=== PATIENT | male | born 1950 | race Caucasian/White ===

== ENCOUNTER 2019-10-09 23:37 | Inpatient (IN) | payer MEDICARE, SELFPAY ==
[2019-10-09 23:44] VITALS: BP 95/61; PULSE 74; RESP 20; TEMP 36.1; O2SAT 94; BMI 36.2
--- NOTE | 2019-10-09 23:55 | XRR_ITS ---
PROCEDURE INFORMATION: Exam: XR Chest, 1 View Exam date and time: 10/10/2019 12:09 AM Age: 69 years old Clinical indication: Dyspnea and shortness of breath and other: Bilateral lower extremity edema TECHNIQUE: Imaging protocol: XR of the chest Views: 1 view. COMPARISON: [facility] Chest 2 views 03/04/2019 8:43 AM FINDINGS: Lungs: Interstitial prominence . Pleural space: No pleural effusion. Heart/Mediastinum: Poorly defined density overlying the inferior left heart border, believed to represent epicardial fat. Bones/joints: Nonspecific 5 mm nodular density overlying the right 9th posterior rib. Degenerative change. XR/XR chest 1V portable [id number] IMPRESSION: 1. Nonspecific 5 mm nodular density overlying the right 9th posterior rib. 2. Poorly defined density overlying the inferior left heart border, believed to represent epicardial fat.
[2019-10-10] VITALS (12 sets, daily range): BP systolic 102–152; BP diastolic 63–99; PULSE 96–124; RESP 16–20; TEMP 36.4–37.3; O2SAT 92–98
--- NOTE | 2019-10-10 00:24 | W.ED.EXTPRO ---
HPI - Extremity Problem General: Chief complaint: Extremity Problem,Nontraumatic Stated complaint: feet swollen Time Seen by Provider: 10/09/19 23:50 History of Present Illness: HPI Narrative: Jasper is a nice 69-year-old male who comes in complaining of bilateral feet swelling. He states that for the past 2 days he is noticed his feet have been more swollen along with a sensation of a burning. Patient states he has chronic numbness which he thinks is secondary to diabetic neuropathy but then he also developed a rash on his feet that is now spread throughout his body. He does have shortness of breath but no more so than usual and that is secondary to his COPD. He denies fever. He denies chest pain. He denies any lightheadedness or dizziness. Patient states he is most concerned about his leg swelling and discomfort in his legs. He is really not tried anything at home to make this better or worse. He denies having anything like this before. Associated symptoms: Reports rash; Deny chest pain or fever(s) Review of Systems Const: Denies: fever(s), chills, body aches, fatigue, malaise or diaphoresis Eyes: Denies: change in vision, blurry vision, blind spots or photophobia ENMT: Denies: throat pain, odynophagia, hoarseness, swelling of lips/tongue, ear or mastoid pain, ear discharge, change in hearing or nasal discharge Card: Denies: chest pain, palpitations, irregular heart rhythm, edema, lightheadedness, syncope, pre-syncope, dyspnea on exertion or orthopnea Resp: Reports: dyspnea; Denies: productive cough, non-productive cough, wheezing, hemoptysis or chest congestion GI: Denies: abdominal pain, nausea, vomiting, hematemesis, coffee ground emesis, heartburn, diarrhea, constipation, GI cramping, hematochezia or melena : Denies: flank pain, dysuria, urinary frequency, urinary urgency or hematuria Musc: Reports: extremity swelling; Denies: neck pain, back pain, extremity pain, joint pain, joint swelling, joint redness, joint warmth or joint stiffness Skin/Breast: Reports: rash; Denies: pruritus, erythema, skin tenderness or jaundice Neuro: Denies: headache(s), numbness in extremities, weakness in extremities, sensory changes, lack of coordination, difficulty walking, dizziness, vertigo, confusion or Slurred speech present Arnol/Lymph: Denies: easy bruising, easy bleeding, petechiae, purpura or enlarged lymph nodes All/Imm: Denies: urticaria, throat swelling, tongue swelling, facial swelling or acute wheezing PFSH ED PFSH: Medical History Anxiety CAD (coronary atherosclerotic disease) COPD (chronic obstructive pulmonary disease) Depression DM type 2 (diabetes mellitus, type 2) GERD (gastroesophageal reflux disease) Hypertension Ischemic cardiomyopathy EF 45% Obstructive sleep apnea Unable to tolerate CPAP Surgical History H/O cardiac catheterization Stent 1998 H/O foot surgery History of carpal tunnel surgery Hx of tonsillectomy Family History Other CAD (coronary artery disease) Social History Smoking and tobacco status: heavy tobacco smoker cigarettes [ Other cigarette details: 1 pack/day since young ] Alcohol intake: never Substance/Drug Use: never Household members: spouse and family Housing: House Physical Exam Const: COMMON NORMALS: no acute distress, patient oriented x3, no limitations, healthy appearing and well nourished GENERAL APPEARANCE: cooperative, well kempt and well developed HENMT: COMMON NORMALS: normocephalic, atraumatic, hearing grossly normal bilaterally, external ears normal, EAC's normal, Normal external nose present and moist oral mucous membranes HEAD & SCALP: normocephalic and atraumatic NOSE: Normal external nose present and Normal nares present EXTERNAL EAR: Yes external ears normal EXTERNAL AUDITORY CANAL: EAC's normal MOUTH: Normal oral and palatal mucosa present, lip normal and tongue normal Eye: COMMON NORMALS: Equal, round and reactive pupils present, EOMs intact bilaterally, conjunctivae normal and no scleral icterus GENERAL EYE: appearance normal, both eyes and all related structures ALIGNMENT: Yes alignment normal PERIORBITAL: periorbital findings normal EYELID: eyelids normal CONJUNCTIVA: Yes conjunctivae normal SCLERA: sclerae normal PUPIL: Yes Equal, round and reactive pupils present Neck/C-Spine: COMMON NORMALS: full ROM, no lymphadenopathy, supple, no meningeal signs and no JVD GENERAL: Yes normal visual inspection and Yes trachea midline Chest: COMMONS NORMALS: normal inspection of the chest and normal palpation of entire chest wall Resp: COMMON NORMALS: normal respiratory effort, No retractions, No use of accessory muscles and clear to auscultation bilaterally EFFORT & INSPECTION: Yes able to speak in complete sentences and Yes symmetric chest movement AUSCULTATION: clear to auscultation bilaterally, no crackles, no rales, no rhonchi and no wheezes Cardio: COMMON NORMALS: no JVD, regular rate, regular rhythm, S1 normal heart sound present, S2 normal heart sound present, No gallops present (Cardio), No clicks present (Cardio), No murmurs present (Cardio) and No rub (Cardio) RATE: regular rate RHYTHM: regular rhythm HEART SOUNDS: S1 normal heart sound present and S2 normal heart sound present OTHER: Bilateral lower extremity edema filling the foot, ankles and lower legs. GI: COMMON NORMALS: Soft to palpation and No hepatosplenomegaly present PALPATION: Yes Soft to palpation, No Tenderness to palpation present (GI), No Guarding due to palpation present (GI), No Rigid due to palpation, Yes No hepatosplenomegaly present, No Hernia present, No Palpable mass present and No Pulsatile mass present : COMMON NORMALS: Yes no CVA tenderness BLADDER/KIDNEY EXAM: Yes no CVA tenderness Back/Pelvis: COMMON NORMALS: no CVA tenderness, thoracic and lumbar spine normal to inspection, no thoracic nor lumbar tenderness and thoraco-lumbar ROM normal Extremity: COMMON NORMALS: normal to inspection, full ROM, capillary refill normal, no joint enlargement, no clubbing, cyanosis or edema and no calf tenderness Neuro: COMMON NORMALS: patient oriented x3, CN's II-XII intact bilaterally, moves all extremities, no focal motor deficits and no sensory deficits noted MENINGEAL SIGNS: Yes no meningeal signs SPEECH: speech normal Psych: COMMON NORMALS: mental status grossly normal, Normal thought process present, cooperative, normal affect, speech normal and activity/motor behavior normal APPEARANCE: Yes well kempt SPEECH: Yes normal speech THOUGHT PROCESS: Normal thought process present Skin: COMMON NORMALS: turgor normal, no jaundice and no mottling NARRATIVE SKIN EXAM: Petechial-like rash to lower extremities, upper extremities and torso GENERAL SKIN EXAM: turgor normal Course Vital Signs: Vital signs: Vital Signs Temperature 97.9 F 10/10/19 03:18 Pulse Rate 116 H 10/10/19 03:18 Respiratory Rate 20 H 10/10/19 03:18 Blood Pressure 133/76 10/10/19 03:18 Pulse Oximetry 98 10/10/19 03:18 MDM - Extremity (Nontraumatic) MDM Narrative: Medical decision making narrative: Admission -Mr. ventura is a nice 69-year-old man who comes in complaining of feet swelling, burning pain and petechial rash. His rash is spread even during his time here in the ER to occlude his upper extremities and his trunk. He does not have a fever. He is not complaining of a viral syndrome at this time. He is in new onset atrial fibrillation. This first blood pressure was slightly soft but his repeat pressures have all been normal. His heart rate is in the 100s. I have elected not to control his heart rate secondary to the concern of an infectious process. Patient did have a tick bite approximately 2 weeks ago that he remembers. The petechial rash could be explained by [place] spotted fever but meningococcemia is also a possibility. At this time the patient's been covered with broad-spectrum antibiotics as well as antibiotics specific for tickborne illness and meningococcemia. I have endorsed the case to Dr. White and he agrees to admit for further evaluation and care. Lab Data: Attestation: I reviewed the patient's lab results. Labs: Lab Results 10/10/19 10/10/19 10/10/19 Range/Units 00:07 00:07 00:07 WBC (4.0-10.0) 10^3/ uL RBC (4.1-5.3) 10^6/u L Hgb (11.7-16.6) g/dL Hct (42.0-52.0) % MCV (80-94) fL MCH (28.0-34.0) pg MCHC (30.0-36.0) g/dL RDW (12.1-15.1) % Plt Count (130-400) 10^3/c mm MPV (7.4-10.4) fL Neut % (Auto) % Lymph % (Auto) % [place] % (Auto) % Eos % (Auto) % Baso % (Auto) % Neut # (Auto) (1.8-7.7) 10^3/u L Lymph # (Auto) (0.8-4.8) 10^3/u L [place] # (Auto) (0.2-0.9) 10^3/u L Eos # (Auto) (0.0-0.8) 10^3/u L Baso # (Auto) (0.0-0.1) 10^3/u L Nucleated RBC % (a uto) % Nucleated RBCs # /100WBC ESR (0-10) mm/hr PT (10.5-13.3) SECO NDS INR (0.8-1.2) APTT (23.9-36.7) SECO NDS Fibrinogen (184-529) mg/dL D-Dimer 3.11 H (0-0.59) ug/mIFE U Sodium 130 L (136-145) mmol/L Potassium 3.2 L (3.5-5.1) mmol/L Chloride 85 L (98-107) mmol/L Carbon Dioxide 30 H (22-29) mmol/L Anion Gap 18.2 (5-19) BUN 14 (8-23) mg/dL Creatinine 0.8 (0.7-1.2) mg/dL GFR Calculation 96.4 (90-130) mL/min Glucose 126 H (65-115) mg/dL Calculated Osmolal ity 268 L (285-295) mOsm/k g Lactic Acid 2.6 H (0.5-2.2) mmol/L Lactic Acid (Sepsi s) (0.5-2.2) mmol/L Calcium 8.7 (8.5-10.5) mg/dL Magnesium 1.3 L (1.7-2.3) mg/dL Total Bilirubin 1.8 H (0.15-1.2) mg/dL AST 12 (0-40) U/L ALT 14 (0-41) U/L Alkaline Phosphata se 85 (40-130) IU/L Troponin T Baselin e (0-15) ng/mL Troponin T 120 Min [place] (0-15) ng/mL Delta Troponin T (0-10) ABS# C-Reactive Protein (0.0-4.9) mg/L NT-Pro-B Natriuret Pep 424 H (0-125) pg/mL Total Protein 7.2 (6.6-8.7) g/dL Albumin 4.0 (3.5-5.2) g/dL Globulin 3.2 (1.3-4.6) g/dL Urine Color (Yellow) Urine Appearance (CLEAR) Urine pH (5-7) Ur Specific Gravit y (1.005-1.030) Urine Protein (Negative) Urine Glucose (UA) (Normal) Urine Ketones (Negative) Urine Blood (Negative) Urine Nitrate (Negative) Urine Bilirubin (NEGATIVE) Urine Urobilinogen (Negative) mg/dL Ur Leukocyte Teresa ase (Negative) Urine RBC (0-2) /hpf Urine WBC (0-5) /hpf Ur Squamous Epith Cells (0-5) Urine Bacteria (NONE) Hyaline Casts Urine Mucus 10/10/19 10/10/19 10/10/19 Range/Units 00:07 00:07 00:07 WBC 11.7 H (4.0-10.0) 10^3/ uL RBC 5.20 (4.1-5.3) 10^6/u L Hgb 16.3 (11.7-16.6) g/dL Hct 48.1 (42.0-52.0) % MCV 92.5 (80-94) fL MCH 31.3 (28.0-34.0) pg MCHC 33.9 (30.0-36.0) g/dL RDW 13.2 (12.1-15.1) % Plt Count 217 (130-400) 10^3/c mm MPV 9.6 (7.4-10.4) fL Neut % (Auto) 56.8 % Lymph % (Auto) 33.4 % Durham % (Auto) 7.8 % Eos % (Auto) 1.0 % Baso % (Auto) 0.5 % Neut # (Auto) 6.7 (1.8-7.7) 10^3/u L Lymph # (Auto) 3.9 (0.8-4.8) 10^3/u L [place] # (Auto) 0.9 (0.2-0.9) 10^3/u L Eos # (Auto) 0.1 (0.0-0.8) 10^3/u L Baso # (Auto) 0.1 (0.0-0.1) 10^3/u L Nucleated RBC % (a uto) 0 % Nucleated RBCs # 0.0 /100WBC ESR 18 H (0-10) mm/hr PT (10.5-13.3) SECO NDS INR (0.8-1.2) APTT (23.9-36.7) SECO NDS Fibrinogen (184-529) mg/dL D-Dimer (0-0.59) ug/mIFE U Sodium (136-145) mmol/L Potassium (3.5-5.1) mmol/L Chloride (98-107) mmol/L Carbon Dioxide (22-29) mmol/L Anion Gap (5-19) BUN (8-23) mg/dL Creatinine (0.7-1.2) mg/dL GFR Calculation (90-130) mL/min Glucose (65-115) mg/dL Calculated Osmolal ity (285-295) mOsm/k g Lactic Acid (0.5-2.2) mmol/L Lactic Acid (Sepsi s) (0.5-2.2) mmol/L Calcium (8.5-10.5) mg/dL Magnesium (1.7-2.3) mg/dL Total Bilirubin (0.15-1.2) mg/dL AST (0-40) U/L ALT (0-41) U/L Alkaline Phosphata se (40-130) IU/L Troponin T Baselin e 26 H (0-15) ng/mL Troponin T 120 Min [place] (0-15) ng/mL Delta Troponin T (0-10) ABS# C-Reactive Protein (0.0-4.9) mg/L NT-Pro-B Natriuret Pep (0-125) pg/mL Total Protein (6.6-8.7) g/dL Albumin (3.5-5.2) g/dL Globulin (1.3-4.6) g/dL Urine Color (Yellow) Urine Appearance (CLEAR) Urine pH (5-7) Ur Specific Gravit y (1.005-1.030) Urine Protein (Negative) Urine Glucose (UA) (Normal) Urine Ketones (Negative) Urine Blood (Negative) Urine Nitrate (Negative) Urine Bilirubin (NEGATIVE) Urine Urobilinogen (Negative) mg/dL Ur Leukocyte Teresa ase (Negative) Urine RBC (0-2) /hpf Urine WBC (0-5) /hpf Ur Squamous Epith Cells (0-5) Urine Bacteria (NONE) Hyaline Casts Urine Mucus 10/10/19 10/10/19 10/10/19 Range/Units 00:07 01:05 01:42 WBC (4.0-10.0) 10^3/ uL RBC (4.1-5.3) 10^6/u L Hgb (11.7-16.6) g/dL Hct (42.0-52.0) % MCV (80-94) fL MCH (28.0-34.0) pg MCHC (30.0-36.0) g/dL RDW (12.1-15.1) % Plt Count (130-400) 10^3/c mm MPV (7.4-10.4) fL Neut % (Auto) % Lymph % (Auto) % [place] % (Auto) % Eos % (Auto) % Baso % (Auto) % Neut # (Auto) (1.8-7.7) 10^3/u L Lymph # (Auto) (0.8-4.8) 10^3/u L [place] # (Auto) (0.2-0.9) 10^3/u L Eos # (Auto) (0.0-0.8) 10^3/u L Baso # (Auto) (0.0-0.1) 10^3/u L Nucleated RBC % (a uto) % Nucleated RBCs # /100WBC ESR (0-10) mm/hr PT (10.5-13.3) SECO NDS INR (0.8-1.2) APTT (23.9-36.7) SECO NDS Fibrinogen (184-529) mg/dL D-Dimer (0-0.59) ug/mIFE U Sodium (136-145) mmol/L Potassium (3.5-5.1) mmol/L Chloride (98-107) mmol/L Carbon Dioxide (22-29) mmol/L Anion Gap (5-19) BUN (8-23) mg/dL Creatinine (0.7-1.2) mg/dL GFR Calculation (90-130) mL/min Glucose (65-115) mg/dL Calculated Osmolal ity (285-295) mOsm/k g Lactic Acid (0.5-2.2) mmol/L Lactic Acid (Sepsi s) (0.5-2.2) mmol/L Calcium (8.5-10.5) mg/dL Magnesium (1.7-2.3) mg/dL Total Bilirubin (0.15-1.2) mg/dL AST (0-40) U/L ALT (0-41) U/L Alkaline Phosphata se (40-130) IU/L Troponin T Baselin e (0-15) ng/mL Troponin T 120 Min [place] 22.34 H (0-15) ng/mL Delta Troponin T -3.66 L (0-10) ABS# C-Reactive Protein 39.7 H (0.0-4.9) mg/L NT-Pro-B Natriuret Pep (0-125) pg/mL Total Protein (6.6-8.7) g/dL Albumin (3.5-5.2) g/dL Globulin (1.3-4.6) g/dL Urine Color Dark yellow (Yellow) Urine Appearance Sl hazy (CLEAR) Urine pH 5 (5-7) Ur Specific Gravit y 1.010 (1.005-1.030) Urine Protein Neg (Negative) Urine Glucose (UA) Norm (Normal) Urine Ketones 1+ H (Negative) Urine Blood 2+ H (Negative) Urine Nitrate Negative (Negative) Urine Bilirubin Neg (NEGATIVE) Urine Urobilinogen 4 H (Negative) mg/dL Ur Leukocyte Teresa ase Negative (Negative) Urine RBC 5-10 H (0-2) /hpf Urine WBC 0-4 H (0-5) /hpf Ur Squamous Epith Cells 0-4 H (0-5) Urine Bacteria Trace (NONE) Hyaline Casts 5-10 H Urine Mucus 2+ 10/09/20 10/09/ Range/Units 02:54 03:47 WBC (4.0-10.0) 10^3/ uL RBC (4.1-5.3) 10^6/u L Hgb (11.7-16.6) g/dL Hct (42.0-52.0) % MCV (80-94) fL MCH (28.0-34.0) pg MCHC (30.0-36.0) g/dL RDW (12.1-15.1) % Plt Count (130-400) 10^3/c mm MPV (7.4-10.4) fL Neut % (Auto) % Lymph % (Auto) % [place] % (Auto) % Eos % (Auto) % Baso % (Auto) % Neut # (Auto) (1.8-7.7) 10^3/u L Lymph # (Auto) (0.8-4.8) 10^3/u L [place] # (Auto) (0.2-0.9) 10^3/u L Eos # (Auto) (0.0-0.8) 10^3/u L Baso # (Auto) (0.0-0.1) 10^3/u L Nucleated RBC % (a uto) % Nucleated RBCs # /100WBC ESR (0-10) mm/hr PT 13.90 H (10.5-13.3) SECO NDS INR 1.04 (0.8-1.2) APTT 27.6 (23.9-36.7) SECO NDS Fibrinogen 450 (184-529) mg/dL D-Dimer 3.73 H (0-0.59) ug/mIFE U Sodium (136-145) mmol/L Potassium (3.5-5.1) mmol/L Chloride (98-107) mmol/L Carbon Dioxide (22-29) mmol/L Anion Gap (5-19) BUN (8-23) mg/dL Creatinine (0.7-1.2) mg/dL GFR Calculation (90-130) mL/min Glucose (65-115) mg/dL Calculated Osmolal ity (285-295) mOsm/k g Lactic Acid (0.5-2.2) mmol/L Lactic Acid (Sepsi s) 1.9 (0.5-2.2) mmol/L Calcium (8.5-10.5) mg/dL Magnesium (1.7-2.3) mg/dL Total Bilirubin (0.15-1.2) mg/dL AST (0-40) U/L ALT (0-41) U/L Alkaline Phosphata se (40-130) IU/L Troponin T Baselin e (0-15) ng/mL Troponin T 120 Min [place] (0-15) ng/mL Delta Troponin T (0-10) ABS# C-Reactive Protein (0.0-4.9) mg/L NT-Pro-B Natriuret Pep (0-125) pg/mL Total Protein (6.6-8.7) g/dL Albumin (3.5-5.2) g/dL Globulin (1.3-4.6) g/dL Urine Color (Yellow) Urine Appearance (CLEAR) Urine pH (5-7) Ur Specific Gravit y (1.005-1.030) Urine Protein (Negative) Urine Glucose (UA) (Normal) Urine Ketones (Negative) Urine Blood (Negative) Urine Nitrate (Negative) Urine Bilirubin (NEGATIVE) Urine Urobilinogen (Negative) mg/dL Ur Leukocyte Teresa ase (Negative) Urine RBC (0-2) /hpf Urine WBC (0-5) /hpf Ur Squamous Epith Cells (0-5) Urine Bacteria (NONE) Hyaline Casts Urine Mucus Imaging Data^: CXR: My impression: No acute cardiopulmonary findings. CTA Pulmonary Artery, Abdomen Pelvis: Radiologist's impression: [place] [address] CT Scan Report Signed Patient: Jasper Savage Unit #: [id number] : 1950 Age/Sex: 69 / M ADM Date: 10/09/19 Loc: ER Room/Bed: Attending Dr: Ordering Provider/Ordering MD: Mehnaz Oneal DO Date of Service: 10/10/19 Procedure(s): CT angio chest w abd pel w con Accession Number(s): [id number] Report Number: [id number] PROCEDURE INFORMATION: Exam: CT Angiography Chest With Contrast Exam date and time: 10/10/2019 1:47 AM Age: 69 years old Clinical indication: Nausea; Abdominal pain; Generalized; Shortness of breath; Chest pain; Additional info: Dyspnea TECHNIQUE: Imaging protocol: Computed tomographic angiography of the chest with intravenous contrast. 3D rendering: MIP and/or 3D reconstructed images were created by the technologist. Radiation optimization: All CT scans at this facility use at least one of these dose optimization techniques: automated exposure control; mA and/or kV adjustment per patient size (includes targeted exams where dose is matched to clinical indication); or iterative reconstruction. Contrast material: OMNI 350; Contrast volume: 95 ml; Contrast route: 20G; COMPARISON: CR XR chest 1V portable [id number] 10/09/2019 11:57 PM FINDINGS: Pulmonary arteries: Normal. No pulmonary emboli. Aorta: Unremarkable. No aortic aneurysm. No aortic dissection. Lungs: Unremarkable. No consolidation. A partially calcified nodularity is seen within the left lower lobe measuring approximately 7 mm likely representing a partially calcified granuloma. Pleural space: Unremarkable. No pneumothorax. No pleural effusion. Heart: Unremarkable. No cardiomegaly. No pericardial effusion. Lymph nodes: Unremarkable. No enlarged lymph nodes. Bones/joints: Unremarkable. No acute fracture. Soft tissues: Unremarkable. Other findings: The Total DLP: 2217.17 mGy-cm IMPRESSION: 1. There is no evidence for pulmonary emboli. There is no evidence for aneurysmal dilatation, dissection or extravasation. 2. 7 mm partially calcified granuloma within the left hemithorax. No further workup needed. PROCEDURE INFORMATION: Exam: CT Abdomen And Pelvis With Contrast Exam date and time: 10/10/2019 1:47 AM Age: 69 years old Clinical indication: Nausea; Abdominal pain; Generalized; Shortness of breath; Chest pain; Additional info: Dyspnea TECHNIQUE: Imaging protocol: Computed tomography of the abdomen and pelvis with intravenous contrast. Radiation optimization: All CT scans at this facility use at least one of these dose optimization techniques: automated exposure control; mA and/or kV adjustment per patient size (includes targeted exams where dose is matched to clinical indication); or iterative reconstruction. Contrast material: OMNI 350; Contrast volume: 95 ml; Contrast route: 20G; COMPARISON: CR XR chest 1V portable [id number] 10/09/2019 11:57 PM RADIATION DOSE METRICS: Total DLP: 2217.17 mGy-cm FINDINGS: Liver: Normal. No mass. Gallbladder and bile ducts: Normal. No calcified stones. No ductal dilation. Pancreas: Normal. No ductal dilation. Spleen: Multiple punctate calcifications are seen within the spleen compatible with calcified granulomas. No splenomegaly. Adrenals: There is a 13 mm hypoattenuation nodularity seen within the left adrenal gland likely representing a benign adenoma. Kidneys and ureters: Normal. No hydronephrosis. Stomach and bowel: There is mild bowel wall thickening seen within the terminal ileum, findings could represent mild inflammatory changes and ileitis. Appendix: No evidence of appendicitis. Intraperitoneal space: Unremarkable. No free air. No significant fluid collection. Vasculature: Unremarkable. No abdominal aortic aneurysm. Lymph nodes: Unremarkable. No enlarged lymph nodes. Bladder: Unremarkable as visualized. Reproductive: Unremarkable as visualized. Bones/joints: Unremarkable. No acute fracture. Soft tissues: Unremarkable. CT/CT angio chest w abd pel w con IMPRESSION: 1. No acute findings. 2. Benign-appearing 13 mm hypoattenuation left adrenal nodularity. If patient has no cancer history, consider follow-up adrenal CT or resection. If patient has a history of cancer, consider biopsy or PET/CT for patients with cancer history. ([facility] CampusJosh W, ACR White Paper, 2017) . 3. Mild bowel wall thickening of the terminal ileum, findings could represent mild terminal ileitis. Radiation Dose CTDIVOL = (mGy): DLP = 2217.17 2217.17 (mGy-cm) Dictated By: Wood June MD Signed By: Wood June MD Signed Date/Time: 10/10/19300 DD/ 8 EKG Data^: EKG 1: Attestation: I personally reviewed and interpreted this EKG as follows: Discharge Plan Discharge Patient Disposition: Placed in Observation Clinical Impression: Atrial fibrillation with rapid ventricular response, Petechial rash Condition: Stable Referrals: Sushil Valerio DO [Primary Care Provider] - Coding Level of Care Code ED Substation Manager for Chg Fwd Exam Comprehensive
[2019-10-10 00:25] LABS: Basophils # 0.1 10^3/uL (0.0-0.1); Basophils % 0.5 %; Eosinophils # 0.1 10^3/uL (0.0-0.8); Hematocrit 48.1 % (42.0-52.0); Hemoglobin 16.3 g/dL (11.7-16.6); Lymphocytes # 3.9 10^3/uL (0.8-4.8); Lymphocytes % 33.4 %; Mean Corpuscular HGB Conc 33.9 g/dL (30.0-36.0); Mean Corpuscular Hemoglobin 31.3 pg (28.0-34.0); Mean Corpuscular Volume 92.5 fL (80-94); Mean Platelet Volume 9.6 fL (7.4-10.4); Monocytes # 0.9 10^3/uL (0.2-0.9); Monocytes % 7.8 %; Neutrophils # 6.7 10^3/uL (1.8-7.7); Neutrophils % 56.8 %; Nucleated Red Blood Cells % 0 %; Platelet Count 217 10^3/cmm (130-400); Red Cell Distribution Width 13.2 % (12.1-15.1); White Blood Count 11.7 10^3/uL (4.0-10.0)
[2019-10-10 00:32] LABS: D Dimer 3.11 ug/mIFEU (0-0.59)
--- NOTE | 2019-10-10 00:37 | USR_ITS ---
PROCEDURE INFORMATION: Exam: US Duplex Lower Extremity Veins, Bilateral Exam date and time: 10/10/2019 5:52 AM Age: 69 years old Clinical indication: Pain; Swelling (edema) of limb; Lower extremity, bilateral; Leg, lower; Additional info: Swelling, pain TECHNIQUE: Imaging protocol: Real-time duplex ultrasound of the extremities with 2-D elmore scale, color Doppler flow and spectral waveform analysis with image documentation. Complete exam focused on the bilateral lower extremity veins. COMPARISON: No relevant prior studies available. FINDINGS: Right deep veins: No deep venous thrombosis in the visualized right common femoral, profunda femoris, superficial femoral, popliteal, posterior tibial, or peroneal veins. Right superficial veins: Saphenofemoral junction is patent without thrombus. Left deep veins: No deep venous thrombosis in the visualized left common femoral, profunda femoris, superficial femoral, popliteal, posterior tibial, or peroneal veins. Left superficial veins: Saphenofemoral junction is patent without thrombus. Soft tissues: Unremarkable. US/CV venous duplex [facility] [id number] IMPRESSION: No deep venous thrombosis in the visualized bilateral lower extremities.
[2019-10-10 00:42] LABS: Lactic Sepsis W/Reflex 2.6 mmol/L (0.5-2.2)
[2019-10-10 00:43] LABS: Troponin(5th) Baseline 26 ng/mL (0-15)
[2019-10-10 00:51] LABS: Alanine Aminotransferase 14 U/L (0-41); Alkaline Phosphatase 85 IU/L (40-130); Anion Gap 18.2 (5-19); Aspartate Amino Transferase 12 U/L (0-40); Blood Urea Nitrogen 14 mg/dL (8-23); Calcium 8.7 mg/dL (8.5-10.5); Carbon Dioxide 30 mmol/L (22-29); Chloride 85 mmol/L (98-107); Globulin 3.2 g/dL (1.3-4.6); Glomerular Filtration Rate 96.4 mL/min (90-130); Glucose 126 mg/dL (65-115); Magnesium 1.3 mg/dL (1.7-2.3); NT Pro B Type Natriuretic Pept 424 pg/mL (0-125); Osmolality Calculated 268 mOsm/kg (285-295); Potassium 3.2 mmol/L (3.5-5.1); Sodium 130 mmol/L (136-145); Total Bilirubin 1.8 mg/dL (0.15-1.2); Total Protein 7.2 g/dL (6.6-8.7)
--- NOTE | 2019-10-10 01:39 | CTR_ITS ---
PROCEDURE INFORMATION: Exam: CT Angiography Chest With Contrast Exam date and time: 10/10/2019 1:47 AM Age: 69 years old Clinical indication: Nausea; Abdominal pain; Generalized; Shortness of breath; Chest pain; Additional info: Dyspnea TECHNIQUE: Imaging protocol: Computed tomographic angiography of the chest with intravenous contrast. 3D rendering: MIP and/or 3D reconstructed images were created by the technologist. Radiation optimization: All CT scans at this facility use at least one of these dose optimization techniques: automated exposure control; mA and/or kV adjustment per patient size (includes targeted exams where dose is matched to clinical indication); or iterative reconstruction. Contrast material: OMNI 350; Contrast volume: 95 ml; Contrast route: 20G; COMPARISON: CR XR chest 1V portable [id number] 10/09/2019 11:57 PM FINDINGS: Pulmonary arteries: Normal. No pulmonary emboli. Aorta: Unremarkable. No aortic aneurysm. No aortic dissection. Lungs: Unremarkable. No consolidation. A partially calcified nodularity is seen within the left lower lobe measuring approximately 7 mm likely representing a partially calcified granuloma. Pleural space: Unremarkable. No pneumothorax. No pleural effusion. Heart: Unremarkable. No cardiomegaly. No pericardial effusion. Lymph nodes: Unremarkable. No enlarged lymph nodes. Bones/joints: Unremarkable. No acute fracture. Soft tissues: Unremarkable. Other findings: The Total DLP: 2217.17 mGy-cm IMPRESSION: 1. There is no evidence for pulmonary emboli. There is no evidence for aneurysmal dilatation, dissection or extravasation. 2. 7 mm partially calcified granuloma within the left hemithorax. No further workup needed. PROCEDURE INFORMATION: Exam: CT Abdomen And Pelvis With Contrast Exam date and time: 10/10/2019 1:47 AM Age: 69 years old Clinical indication: Nausea; Abdominal pain; Generalized; Shortness of breath; Chest pain; Additional info: Dyspnea TECHNIQUE: Imaging protocol: Computed tomography of the abdomen and pelvis with intravenous contrast. Radiation optimization: All CT scans at this facility use at least one of these dose optimization techniques: automated exposure control; mA and/or kV adjustment per patient size (includes targeted exams where dose is matched to clinical indication); or iterative reconstruction. Contrast material: OMNI 350; Contrast volume: 95 ml; Contrast route: 20G; COMPARISON: CR XR chest 1V portable [id number] 10/09/2019 11:57 PM RADIATION DOSE METRICS: Total DLP: 2217.17 mGy-cm FINDINGS: Liver: Normal. No mass. Gallbladder and bile ducts: Normal. No calcified stones. No ductal dilation. Pancreas: Normal. No ductal dilation. Spleen: Multiple punctate calcifications are seen within the spleen compatible with calcified granulomas. No splenomegaly. Adrenals: There is a 13 mm hypoattenuation nodularity seen within the left adrenal gland likely representing a benign adenoma. Kidneys and ureters: Normal. No hydronephrosis. Stomach and bowel: There is mild bowel wall thickening seen within the terminal ileum, findings could represent mild inflammatory changes and ileitis. Appendix: No evidence of appendicitis. Intraperitoneal space: Unremarkable. No free air. No significant fluid collection. Vasculature: Unremarkable. No abdominal aortic aneurysm. Lymph nodes: Unremarkable. No enlarged lymph nodes. Bladder: Unremarkable as visualized. Reproductive: Unremarkable as visualized. Bones/joints: Unremarkable. No acute fracture. Soft tissues: Unremarkable. CT/CT angio chest w abd pel w con IMPRESSION: 1. No acute findings. 2. Benign-appearing 13 mm hypoattenuation left adrenal nodularity. If patient has no cancer history, consider follow-up adrenal CT or resection. If patient has a history of cancer, consider biopsy or PET/CT for patients with cancer history. (Maryse Dias, ACR White Paper, 2017) . 3. Mild bowel wall thickening of the terminal ileum, findings could represent mild terminal ileitis. Radiation Dose CTDIVOL = (mGy): DLP = 2217.17~2217.17 (mGy-cm)
[2019-10-10 02:00] LABS: Bilirubin Urine Neg (NEGATIVE); Blood Urine 2+ (Negative); Glucose Urine UA Norm (Normal); Ketones Urine 1+ (Negative); Nitrate Urine Negative (Negative); Protein Urine Neg (Negative); Urine Appearance SL Hazy (CLEAR); Urine Color Dark Yellow (Yellow); Urobilinogen Urine 4 mg/dL (Negative); pH Urine 5 (5-7)
[2019-10-10 02:01] LABS: Leukocyte Esterase Urine Negative (Negative)
[2019-10-10] MEDS: magnesium sulfate premix 2 GM/50 ML PIGGYBACK IV (02:01)
[2019-10-10 02:02] LABS: Add Urine Culture? No; Bacteria Urine TRACE; Mucus Urine 2+; Squamous Epithelial Cell Urine 0-4 (0-5); WBC Urine 0-4 /hpf (0-5)
[2019-10-10 02:05] LABS: Troponin 5 2HR 22.34 ng/mL (0-15)
[2019-10-10 02:07] LABS: Reflex Lactate Order REFLEX LACTIC ORDERD
[2019-10-10 02:11] LABS: Troponin 5 2HR Delta -3.66 ABS# (0-10)
[2019-10-10] MEDS: iohexol 350 mg/mL 100 mL Btl IV (02:38)
[2019-10-10 02:43] LABS: Erythrocyte Sedimentation Rate 18 mm/hr (0-10)
[2019-10-10] MEDS: levofloxacin-dextrose 5 % 750 MG/150 ML PREMIX 150 MG IV (02:45)
[2019-10-10 02:49] LABS: C Reactive Protein 39.7 mg/L (0.0-4.9)
[2019-10-10 03:13] LABS: Lactic Acid level (Lactate) 1.9 mmol/L (0.5-2.2)
--- NOTE | 2019-10-10 03:18 | PM.HP ---
Providers/Chief Complaint Primary Care Provider: Sushil Valerio DO Chief Complaint: feet swollen History of Present Illness Jasper Savage is a 69 year old male who has history of ischemic cardiomyopathy EF 45%, came in with chief complaint of skin rash. Patient is stating that he lives alone in [facility], around 4 5 days ago he started noticing macular rash around his ankles, initially it was nonpruritic and nontender, he did not pay much attention to the skin rash initially, it gradually progressed towards his abdomen, associated with burning sensation, ankle swelling and pain, he has been feeling tired, lethargic and felt dizzy when he was try to get up from sitting position. He did not notice any skin rash in his eyes or buccal mucosa. He had one episode of diarrhea 2 days ago, he did not notice any fever, he is denying neck pain, headache, blurry vision, chest pain. He has not noticed any tick bite. He has 2 dogs, he is stating that lately they have been scratching her skin a lot. No recent traveling or camping Diagnostics in the ER revealed hypotension, high lactic acid, new onset A. fib, maculopapular rash, CT chest abdomen pelvis revealed no PE, calcified granuloma left hemithorax, 13 mm hypoattenuated left adrenal nodularity Ileitis High d-dimer, high CRP and ESR normal platelet and hemoglobin level, lactic acid improved after fluid resuscitation from 2.6-1.9 He has received 2 g of ceftriaxone, doxycycline and Levaquin in the ER Review of Systems Const: Reports: chills, body aches and fatigue; Denies: fever(s) Eyes: Denies: change in vision ENMT: Denies: throat pain Card: Denies: chest pain Resp: Denies: dyspnea GI: Denies: abdominal pain, nausea or vomiting : Denies: flank pain Musc: Denies: neck pain Skin/Breast: Reports: rash, erythema, skin pain, skin tenderness, skin swelling and changes in skin color; Denies: sores Neuro: Denies: headache(s), weakness in extremities or Slurred speech present Psych: Denies: anxiety Endo: Denies: polyuria Arnol/Lymph: Denies: easy bruising All/Imm: Denies: urticaria Medications/Allergies Allergies Allergy/AdvReac Type Severity Reaction Status Date / Time No Known Allergies Allergy Verified 10/09/19 23:44 PFSH Acute PFSH: Medical History Anxiety CAD (coronary atherosclerotic disease) COPD (chronic obstructive pulmonary disease) Depression DM type 2 (diabetes mellitus, type 2) GERD (gastroesophageal reflux disease) Hypertension Ischemic cardiomyopathy EF 45% Obstructive sleep apnea Unable to tolerate CPAP Surgical History H/O cardiac catheterization Stent 1998 H/O foot surgery History of carpal tunnel surgery Hx of tonsillectomy Family History Other CAD (coronary artery disease) Social History Smoking and tobacco status: heavy tobacco smoker cigarettes [ Other cigarette details: 1 pack/day since young ] Alcohol intake: never Substance/Drug Use: never Household members: spouse and family Housing: House Vitals/I&O/Wt Last Vital Signs Temp 96.9 F L 10/09/19 23:44 Pulse 74 10/09/19 23:44 Resp 20 H 10/09/19 23:44 BP 95/61 10/09/19 23:44 Pulse Ox 94 10/09/19 23:44 10/09/19 10/09/19 10/10/19 14:59 22:59 06:59 Intake Total 50 / 50 Balance 50 / 50 Weight last 48 hrs Weight 117.934 kg Physical Exam Narrative: EXAM NARRATIVE: Head to toe examination Patient is lying comfortable in his bed Systolic blood pressure 93 Saturating well on 2 L nasal Multiple maculopapular rash extending from feet up to abdomen involving bilateral upper extremities, petechial rash on soles and palms No rash seen in conjunctivo- Mild petechial rash seen and vehicle mucosa Tenderness of ankle bilaterally with mild swelling, alongside petechial rash Rash is nontender Variable S1-S2 A. fib RVR Pedal edema 1+ bilateral Abdominal wall showing petechial rash, bloated, bowel sound present nontender, No focal rigidity, no neck rigidity, no headache no signs of meningitis Did not see any tick bite around buttocks or nape area Appropriate mood and affect Data : 10/10/19 00:07 10/10/19 00:07 Micro: Microbiology 10/09/19 01:42 Blood Culture - Preliminary Blood SPECIMEN COLLECTED 10/10/19 00:07 Blood Culture - Preliminary Blood SPECIMEN COLLECTED A&P Assessment and plan (1) New onset a-fib: Status: Acute (2) Sepsis: Status: Acute (3) Petechial rash: Status: Acute (4) Obesity: Status: Acute (5) Obstructive sleep apnea: Status: Acute (6) Hypokalemia: Status: Acute (7) Hypomagnesemia: Status: Acute (8) Adrenal nodule: Status: Acute Additional A&P Information Diffuse maculopapular rash Rash started from feet and progressed to versus abdominal wall and upper extremities in 4 to 5 days Rule out DIC We will treat empirically for meningococcal infection with ceftriaxone 2 g daily and doxycycline for tickborne illness We will send Lyme disease titer Blood cultures Normal hemoglobin and platelet count without any neurological deficit less likely to be TTP, HUS, creatinine is normal DIC panel ordered High ESR and CRP, my concern for [place] Fredrishen syndrome is very high considering petechiae, hypotension, orthostasis, would avoid using any anticoagulation at this point, responding well to fluid resuscitation, close monitor if he would require stress dose steroids New onset A. fib due to sepsis chadvasc 5 Not a candidate to be on anticoagulation because of the petechial rash and concern for waterhouse Jen syndrome Would continue his Coreg at this point Sepsis with unknown source CT abdomen is showing ileitis: He has received Levaquin, ceftriaxone and doxycycline in the ER Would cover him for meningococcal infection at this point with ceftriaxone Tickborne illness coverage with doxycycline No signs of pneumococcal meningitis Would keep him on droplet precaution Mild CHF exacerbation due to tachyarrhythmia EF 45% I would avoid using Lasix at this point because of hypotension, continue aspirin, statin and Coreg Hypokalemia: Repleted Hypomagnesemia: Replete Full code DVT prophylaxis: Not a candidate because of petechial rash Cardiac diet Attestations Medical Necessity Statement*: Anticipating stay in the hospital cross more than 2 midnights currently need work-up for petechial rash, Has new onset A. fib due to sepsis Time Spent in Patient Care: 60 Coding Level of Care Code Acute Residential Substance Abuse Counselor for [facility] Diagnoses New onset a-fib I48.91 Sepsis A41.9 Petechial rash R23.3 Obesity E66.9 Obstructive sleep apnea G47.33 Hypokalemia E87.6 Hypomagnesemia E83.42 Adrenal nodule E27.8
[2019-10-10] MEDS: cefTRIAXone 2,000 MG in sodium chloride 0.9% (plus) 50 ML 100 MG IV (04:00)
[2019-10-10 04:40] LABS: INR 1.04 (0.8-1.2); Partial Thromboplastin Time 27.6 SECONDS (23.9-36.7)
[2019-10-10] MEDS: doxycycline 100 MG in sodium chloride 0.9% (plus) 100 ML IV (04:40)
[2019-10-10 04:41] LABS: Fibrinogen 450 mg/dL (184-529)
[2019-10-10 04:46] LABS: D Dimer 3.73 ug/mIFEU (0-0.59)
--- NOTE | 2019-10-10 05:18 | PC.NURSE ---
prior to pt rounds, pt became incontinent of bowel. Pt states he was unaware of loss of bowel. Pt assisted to bedside commode. Linens changed. pt assisted to bed without difficulites. notified of loose stool and incontinence. Stool sample obtained for lab
[2019-10-10 05:27] LABS: Cortisol Random 14.74 mcg/dL (2.47-19.5)
--- NOTE | 2019-10-10 05:55 | ECG_ITS ---
Measurements Intervals [place] Rate: 105 P: HI: 0 QRS: 54 QRSD: 98 T: 27 QT: 331 QTc: 439 ATRIAL FIBRILLATION WITH RAPID VENTRICULAR RESPONSE ABNORMAL RHYTHM ECG INTERPRETATION BASED ON A DEFAULT AGE OF 40 YEARS Compared to ECG 07/06/2016 05:02:47 Sinus rhythm no longer present Electronically Signed On 10-10-2019 8:17:56 CDT by Lamberto Bryan M.D. [email or web address]
[2019-10-10 06:16] LABS: Troponin 5 6HR 21.38 ng/mL (0-15)
[2019-10-10 06:17] LABS: Troponin 5 6HR Delta -4.62 ng/L (0-12)
[2019-10-10 06:52] LABS: Glucose Point of Care 117 mg/dL (70-110)
[2019-10-10] MEDS: sodium chlor 0.9% + KCl 20 mEq 20 MEQ/1,000 ML BAG 75 MEQ IV ×2 (07:05→21:08)
[2019-10-10] MEDS: magnesium oxide 400 mg tablet PO (07:05)
--- NOTE | 2019-10-10 07:50 | PC.NURSE ---
Spoke with DR Boone about patients rash,edema, lungs sounds wheezes upper lobes,Telemetry 120's a-fib.
--- NOTE | 2019-10-10 09:43 | PM.PN ---
Subjective Subjective: Interval history: Chart reviewed, noted to have atrial fibrillation with RVR on telemetry on arrival to the floor, HR in the 100-120 range, afebrile, normotensive. On droplet precautions for possible meningococcal infection. Medications: Reviewed: Yes Medication Review Details: Active Medications Generic Name Dose Route Start Last Admin Trade Name Freq PRN Reason Stop Dose Admin Acetaminophen 650 mg 10/10/19 06:00 Tylenol PO Q4H PRN fever Albuterol/Ipratrop ium 3 ml 10/10/19 06:00 Duoneb INHALATION Q6H PRN SHORTNESS OF DAMARIS TH Atorvastatin Calci um 40 mg 10/10/19 09:00 Lipitor PO DAILY [facility] Carvedilol 6.25 mg 10/10/19 09:00 Coreg PO BID ELMO Ciprofloxacin HCl 500 mg 10/10/19 10:00 Cipro PO Q12H [facility]MO Protocol Doxycycline Monohy drate 100 mg 10/10/19 09:00 Vibramycin PO BID ELMO Protocol Ceftriaxone Sodium 2,000 mg/ 50 mls @ 100 mls/ hr 10/11/19 02:00 Sodium Chloride IV Q24H ELMO Protocol Potassium Chloride /Sodium Chloride 20 meq in 1,000 m ls @ 75 mls/hr 10/10/19 06:00 10/10/19 07:05 Sodium Chlor 0.9 % + Kcl 20 Meq IV 75 mls/hr .[id number] ELMO Administration No Known Allergies Allergy (Verified 10/09/19 23:44) Vitals/I&O/Wt Last Vital Signs Temp 97.6 F 10/10/19 07:37 Pulse 124 H 10/10/19 07:37 Resp 18 10/10/19 07:37 BP 124/76 10/10/19 07:37 Pulse Ox 96 10/10/19 07:37 10/09/19 10/10/19 10/10/19 22:59 06:59 14:59 Intake Total 50 / 50 Balance 50 / 50 Weight last 48 hrs Weight 117.934 kg Physical Exam Const: COMMON NORMALS: no acute distress, patient oriented x3 and alert GENERAL APPEARANCE: cooperative and comfortable NUTRITIONAL APPEARANCE: obese morbidly obese ORIENTATION/CONSCIOUSNESS: Yes awake HENMT: COMMON NORMALS: normocephalic, atraumatic, hearing grossly normal bilaterally and moist oral mucous membranes HEAD & SCALP: normocephalic and atraumatic Eye: COMMON NORMALS: Equal, round and reactive pupils present, EOMs intact bilaterally and conjunctivae normal CONJUNCTIVA: Yes conjunctivae normal PUPIL: Yes Equal, round and reactive pupils present Neck/C-Spine: COMMON NORMALS: full ROM GENERAL: Yes normal visual inspection and Yes trachea midline OTHER: -short, thick neck Chest: CHEST: Yes Symmetrical chest wall rise Resp: COMMON NORMALS: normal respiratory effort, No retractions, No use of accessory muscles and clear to auscultation bilaterally EFFORT & INSPECTION: Yes able to speak in complete sentences, Yes symmetric chest movement and No tachypneic AUSCULTATION: clear to auscultation bilaterally Cardio: COMMON NORMALS: regular rate, regular rhythm, S1 normal heart sound present, S2 normal heart sound present and No murmurs present (Cardio) RATE: regular rate RHYTHM: regular rhythm HEART SOUNDS: S1 normal heart sound present and S2 normal heart sound present GI: COMMON NORMALS: Normal to inspection, nondistended, normoactive bowel sounds present, Soft to palpation and non-tender INSPECTION: Yes central obesity PALPATION: Yes Soft to palpation Extremity: COMMON NORMALS: normal to inspection, full ROM, no clubbing, cyanosis or edema and no pedal edema Neuro: COMMON NORMALS: patient oriented x3, moves all extremities, no focal motor deficits and no sensory deficits noted SENSORIUM/ORIENTATION: Yes alert Psych: COMMON NORMALS: mental status grossly normal, Normal thought process present, cooperative, normal affect and speech normal SPEECH: Yes normal speech THOUGHT PROCESS: Normal thought process present Skin: COMMON NORMALS: no jaundice, no petechiae and no mottling NARRATIVE SKIN EXAM: -diffuse erythematous purpuric rash on bilateral upper and lower extremities; more coalesced on lower legs and forearms -scattered petechial rash on abdomen, back GENERAL SKIN EXAM: petechiae and purpura Data : 10/10/19 00:07 10/10/19 00:07 Micro: Microbiology 10/09/19 01:42 Blood Culture - Preliminary Blood SPECIMEN COLLECTED 10/10/19 00:07 Blood Culture - Preliminary Blood SPECIMEN COLLECTED A&P Assessment and plan (1) Petechial rash: -appears to be quite diffuse, on bilateral upper and lower extremities, moving centrally to trunk -papular, and petechial in nature, non-pruritic -unclear etiology though had recent tick exposure about 2-3 weeks ago, need to r/o vasculitis -order STACIE, ANCA, RF, anti-ds DNA, hepatitis panel, serum cryoglobulins; may need skin biopsy -suspicion for [place]house friderichsen syndrome on admission but would expect patient to be more unstable clinically as indication of more disseminated meningococcemia -no eosinophilia, low suspicion for drug induced vasculitis -on empiric antibiotic coverage and droplet precautions -noted D-dimer elevation, elevated FDPs; noted normal Hg and platelet count -no PE or overt abnormalities on CT C/A/P except for benign appearing L adrenal nodule -cortisol (random) wnl -hypomagnesemia, hypokalemia; replace as needed -tick panel ordered; on doxycycline -VSS; monitor vital signs -telemetry monitoring -negative DVT on venous duplex Status: Acute (2) Adrenal nodule: -appears benign on imaging, L Status: Acute (3) Hypomagnesemia: -replace as needed Status: Acute (4) Hypokalemia: -replace as needed Status: Acute (5) Obesity: -BMI-36 kg/m2 Status: Chronic Qualifiers: Body mass index: BMI 36.0-36.9 Obesity classification: adult class 2 (BMI 35 - 39.9) Obesity type: due to excess calories Serious obesity comorbidity presence: with serious comorbidity Qualified Code(s): E66.01 - Morbid (severe) obesity due to excess calories; Z68.36 - Body mass index (BMI) 36.0-36.9, adult (6) Atrial fibrillation with rapid ventricular response: -appears to be new onset -is on Coreg -Echo ordered, no baseline -telemetry monitoring -[id number] score-5 Status: Acute (7) GERD (gastroesophageal reflux disease): -on Famotidine Status: Chronic Qualifiers: Esophagitis presence: esophagitis presence not specified Qualified Code(s): K21.9 - Gastro-esophageal reflux disease without esophagitis (8) DM type 2 (diabetes mellitus, type 2): -check A1c -Acccucheks, ISS Status: Chronic Qualifiers: Diabetes mellitus complication status: without complication Diabetes mellitus terminal press operator insulin use: without terminal press operator use Qualified Code(s): E11.9 - Type 2 diabetes mellitus without complications (9) Depression: Status: Chronic Qualifiers: Depression Type: unspecified Qualified Code(s): F32.9 - Major depressive disorder, single episode, unspecified (10) Anxiety: Status: Chronic (11) Hypertension: Status: Chronic Qualifiers: Hypertension type: essential hypertension Qualified Code(s): I10 - Essential (primary) hypertension (12) CAD (coronary atherosclerotic disease): Status: Acute Qualifiers: Associated angina: without angina Coronary Disease-Associated Artery/Lesion type: [place] artery [place] vs. transplanted heart: [place] heart Qualified Code(s): I25.10 - Atherosclerotic heart disease of [place] coronary artery without angina pectoris Additional A&P Information -sepsis on unclear etiology, as evidenced by leukocytosis, lactic acidosis, tachycardia, hypotension; on antibiotics and IVF hydration -Chronic systolic CHF; repeat Echo pending; no diuresis due to initial hypotension -DVT ppx with SCDs, no AC due to bleeding risk -Dispo: home -Code status: FULL code Attestations Medical Necessity Statement*: Patient requires hospitalization for management of new onset atrial fibrillation, disseminated rash and sepsis of unclear etiology. Time Spent in Patient Care: 16 - 35 minutes (>than 50% of time spent in counselling and/or direct pt care on unit). Coding Level of Care Code Acute Behavioral Health Assistant for [facility] Exam Comprehensive Diagnoses Petechial rash R23.3 Adrenal nodule E27.8 Hypomagnesemia E83.42 Hypokalemia E87.6 Obesity E66.01; Z68.36 Body mass index: BMI 36.0-36.9 Obesity classification: adult class 2 (BMI 35 - 39.9) Obesity type: due to excess calories Serious obesity comorbidity presence: with serious comorbidity Atrial fibrillation with rapid ventricular response I48.91 GERD (gastroesophageal reflux disease) K21.9 Esophagitis presence: esophagitis presence not specified DM type 2 (diabetes mellitus, type 2) E11.9 Diabetes mellitus complication status: without complication Diabetes mellitus care home insulin use: without care home use Depression F32.9 Depression Type: unspecified Anxiety F41.9 Hypertension I10 Hypertension type: essential hypertension CAD (coronary atherosclerotic disease) I25.10 Associated angina: without angina Coronary Disease-Associated Artery/Lesion type: [place] artery [place] vs. transplanted heart: [place] heart
[2019-10-10] MEDS: doxycycline 100 mg Tablet PO ×2 (09:45→17:57)
[2019-10-10] MEDS: carvedilol 6.25 mg Tablet PO ×2 (09:46→17:56)
[2019-10-10] MEDS: atorvastatin 40 mg Tablet PO (09:46)
[2019-10-10] MEDS: ciprofloxacin 500 mg Tablet PO ×2 (11:56→21:08)
[2019-10-10 12:30] LABS: Glucose Point of Care 152 mg/dL (70-110)
[2019-10-10 17:03] LABS: Glucose Point of Care 119 mg/dL (70-110)
[2019-10-10 17:17] LABS: Complement C3 104 mg/dL (90-180)
[2019-10-10 17:37] LABS: Hepatitis A Antibody IgM Non-Reactive (Nonreactive); Hepatitis B Core IgM Non-Reactive (Nonreactive); Hepatitis B Surface Antigen Non-Reactive (Nonreactive); Hepatitis C Virus Antibody Non-Reactive (Nonreactive)
[2019-10-10] MEDS: famotidine 20 mg Tablet PO (17:56)
[2019-10-10 21:07] LABS: Glucose Point of Care 158 mg/dL (70-110)
[2019-10-11] VITALS (11 sets, daily range): BP systolic 130–158; BP diastolic 75–98; PULSE 60–120; RESP 18–20; TEMP 36.5–37; O2SAT 90–98
[2019-10-11] MEDS: cefTRIAXone 2,000 MG in sodium chloride 0.9% (plus) 50 ML 100 MG IV (02:31)
--- NOTE | 2019-10-11 06:00 | USCV_ITS ---
Jasper Savage Age: 69 Gender: M : 1950 Exam Date: 10/11/2019 06:48 Ordering Phys: Ratna Boone MD Technologist: Maria Lara Exam Location: [facility] [place] Indication: New onset atrial fibrillation BP: 130 / 89 HR: 96 Rhythm: Atrial fibrillation Technical Quality: Technically difficult study MEASUREMENTS (Male / Female) Normal Values 2D ECHO LV Diastolic Diameter PLAX 4.5 cm 4.2 - 5.9 / 3.9 - 5.3 cm LV Systolic Diameter PLAX 3.3 cm LV Chamber Size 3.7 cm IVS Diastolic Thickness 1.9 cm 0.6 - 1.0 / 0.6 - 0.9 cm IVS Systolic Thickness 1.7 cm LVPW Diastolic Thickness 1.4 cm 0.6 - 1.0 / 0.6 - 0.9 cm LVPW Systolic Thickness 1.1 cm RV Chamber Size 2.7 cm LVOT Diameter 2.0 cm LV Ejection Fraction 2D Teich 52.4 % LA Diameter 4.5 cm LA Width 3.6 cm LA Height 5.6 cm RA Width 2.6 cm RA Height 4.6 cm Aorta at Sinotubular Diameter 3.1 cm M-MODE LV Diastolic Diameter MM 6.2 cm 4.2 - 5.9 / 3.9 - 5.3 cm LV Systolic Diameter MM 5.0 cm LV Ejection Fraction MM Teich 39.7 % IVS Diastolic Thickness MM 1.3 cm 0.6 - 1.0 / 0.6 - 0.9 cm IVS Systolic Thickness MM 1.7 cm LVPW Diastolic Thickness MM 1.4 cm 0.6 - 1.0 / 0.6 - 0.9 cm LVPW Systolic Thickness MM 1.7 cm Aortic Annulus Diameter 3.5 cm LA Ao Ratio MM 1.3 MV E Point Septal Separation 1.2 cm DOPPLER AV Peak Velocity 120.0 cm/s LVOT Peak Velocity 78.0 cm/s AV Area Cont Eq vti 1.8 cm squared AV Area Cont Eq pk 2.1 cm squared MV Area PHT 3.9 cm squared MV E' Velocity 96.0 cm/s TV Peak E Velocity 84.0 cm/s Right Atrial Pressure 3.0 mmHg FINDINGS Left Ventricle The ventricle is poorly seen. Is probably normal in size. It is at least lower limit of normal in function. The ejection fraction is probably 55%. Unable to determine wall motion disturbances. The rhythm is atrial fibrillation so diastolic function cannot be determined. Right Ventricle Right ventricle not well visualized. Normal right ventricular size and systolic function. Right Atrium The right atrium is normal in size. Left Atrium Mildly increased left atrial size. Mitral Valve Poorly seen. No obvious regurgitation. Aortic Valve Poorly seen. No obvious stenosis or regurgitation. Tricuspid Valve Poorly seen Pulmonic Valve Pulmonic valve not well visualized. Pericardium Normal pericardium without effusion. Aorta Normal ascending aorta dimension. CONCLUSIONS The ventricle is poorly seen. Is probably normal in size. It is at least lower limit of normal in function. The ejection fraction is probably 55%. Unable to determine wall motion disturbances. The rhythm is atrial fibrillation so diastolic function cannot be determined. Mildly increased left atrial size. There are no prior echocardiogram studies to compare. Dr. Lamberto Bryan MD (Electronically Signed) Final Date: 11 Oct 2019 07:46 S
[2019-10-11 06:15] LABS: Basophils % 0.5 %; Eosinophils # 0.1 10^3/uL (0.0-0.8); Eosinophils % 1.7 %; Hematocrit 42.2 % (42.0-52.0); Hemoglobin 13.5 g/dL (11.7-16.6); Lymphocytes # 2.5 10^3/uL (0.8-4.8); Lymphocytes % 32.8 %; Mean Corpuscular Hemoglobin 30.7 pg (28.0-34.0); Mean Corpuscular Volume 95.9 fL (80-94); Mean Platelet Volume 9.6 fL (7.4-10.4); Monocytes # 0.6 10^3/uL (0.2-0.9); Monocytes % 8.5 %; Neutrophils # 4.2 10^3/uL (1.8-7.7); Neutrophils % 56.1 %; Nucleated Red Blood Cells % 0 %; Platelet Count 164 10^3/cmm (130-400); Red Cell Distribution Width 13.5 % (12.1-15.1); White Blood Count 7.5 10^3/uL (4.0-10.0)
[2019-10-11 06:29] LABS: Alanine Aminotransferase 11 U/L (0-41); Albumin Level 3.2 g/dL (3.5-5.2); Alkaline Phosphatase 67 IU/L (40-130); Anion Gap 14.3 (5-19); Aspartate Amino Transferase 11 U/L (0-40); Blood Urea Nitrogen 12 mg/dL (8-23); Calcium 8.7 mg/dL (8.5-10.5); Carbon Dioxide 30 mmol/L (22-29); Chloride 102 mmol/L (98-107); Globulin 2.8 g/dL (1.3-4.6); Glomerular Filtration Rate 112.5 mL/min (90-130); Glucose 145 mg/dL (65-115); Osmolality Calculated 293 mOsm/kg (285-295); Potassium 4.3 mmol/L (3.5-5.1); Sodium 142 mmol/L (136-145); Total Bilirubin 0.7 mg/dL (0.15-1.2)
[2019-10-11 06:38] LABS: Glucose Point of Care 133 mg/dL (70-110)
[2019-10-11 06:44] LABS: Estmated Average Glucose 143; Hemoglobin A1C 6.6 % (4.0-6.0)
[2019-10-11] MEDS: famotidine 20 mg Tablet PO ×2 (08:43→17:33)
[2019-10-11] MEDS: atorvastatin 40 mg Tablet PO (08:43)
[2019-10-11] MEDS: carvedilol 6.25 mg Tablet PO ×2 (08:43→17:33)
[2019-10-11] MEDS: doxycycline 100 mg Tablet PO ×2 (08:43→17:33)
[2019-10-11] MEDS: ciprofloxacin 500 mg Tablet PO ×2 (08:43→23:49)
[2019-10-11] MEDS: ipratropium-albuterol 3 mL Neb INHALATION ×3 (09:58→20:06)
[2019-10-11] MEDS: sodium chlor 0.9% + KCl 20 mEq 20 MEQ/1,000 ML BAG 75 MEQ IV (10:15)
--- NOTE | 2019-10-11 17:41 | PM.PN ---
Subjective Subjective: Interval history: Patient resting in bed, seems to be feeling better today and reports less pain in his feet. Rash looks less erythematous and less coalesced. Hemodynamically stable, telemetry review shows atrial fibrillation, less episodes of RVR, afebrile. Medications: Reviewed: Yes Medication Review Details: Active Medications Generic Name Dose Route Start Last Admin Trade Name Freq PRN Reason Stop Dose Admin Acetaminophen 650 mg 10/10/19 06:00 Tylenol PO Q4H PRN fever Albuterol/Ipratrop ium 3 ml 10/10/19 06:00 10/11/19 14:49 Duoneb INHALATION 3 ml Q6H PRN Administration SHORTNESS OF DAMARIS TH Atorvastatin Calci um 40 mg 10/10/19 09:00 10/11/19 08:43 Lipitor PO 40 mg DAILY ELMO Administration Carvedilol 6.25 mg 10/10/19 09:00 10/11/19 17:33 Coreg PO 6.25 mg BID ELMO Administration Ciprofloxacin HCl 500 mg 10/10/19 10:00 10/11/19 08:43 Cipro PO 500 mg Q12H ELMO Administration Protocol Dextrose 25 ml 10/10/19 16:27 D50w IVP ONCE PRN hypoglycemia prot ocol Protocol Dextrose 50 ml 10/10/19 16:27 D50w IVP PRN PRN hypoglycemia prot ocol Protocol Doxycycline Monohy drate 100 mg 10/10/19 09:00 10/11/19 17:33 Vibramycin PO 100 mg BID ELMO Administration Protocol Famotidine 20 mg 10/10/19 18:00 10/11/19 17:33 Pepcid Tab PO 20 mg BID ELMO Administration Glucagon 1 mg 10/10/19 16:27 Glucagen IM ONCE PRN Adult Acute Hypog lycemia Prot. Protocol Ceftriaxone Sodium 2,000 mg/ 50 mls @ 100 mls/ hr 10/11/19 02:00 10/11/19 03:01 Sodium Chloride IV Infused Q24H ELMO Infusion Protocol Potassium Chloride /Sodium Chloride 20 meq in 1,000 m ls @ 75 mls/hr 10/10/19 06:00 10/11/19 10:15 Sodium Chlor 0.9 % + Kcl 20 Meq IV 75 mls/hr .[id number] ELMO Administration Dextrose 500 mls @ 100 mls /hr 10/10/19 16:27 D5w IV ONCE PRN Adult Acute Hypog lycemia Prot Protocol Insulin Aspart 0 unit 10/10/19 18:00 10/11/19 16:51 Novolog SUBCUT Not Given WM&BEDTIME ELMO Protocol No Known Allergies Allergy (Verified 10/09/19 23:44) Vitals/I&O/Wt Last Vital Signs Temp 98.2 F 10/11/19 16:00 Pulse 97 10/11/19 16:00 Resp 19 H 10/11/19 16:00 BP 155/87 10/11/19 16:00 Pulse Ox 96 10/11/19 16:00 10/11/19 10/11/19 10/11/19 06:59 14:59 22:59 Intake Total 50 / 1872 1790 / 1790 Balance 50 / 1272 1790 / 1790 Weight last 48 hrs Weight 117.934 kg Physical Exam Const: COMMON NORMALS: no acute distress, patient oriented x3 and alert GENERAL APPEARANCE: cooperative and comfortable NUTRITIONAL APPEARANCE: obese morbidly obese ORIENTATION/CONSCIOUSNESS: Yes awake HENMT: COMMON NORMALS: normocephalic, atraumatic, hearing grossly normal bilaterally and moist oral mucous membranes HEAD & SCALP: normocephalic and atraumatic Eye: COMMON NORMALS: Equal, round and reactive pupils present, EOMs intact bilaterally and conjunctivae normal CONJUNCTIVA: Yes conjunctivae normal PUPIL: Yes Equal, round and reactive pupils present Neck/C-Spine: COMMON NORMALS: full ROM GENERAL: Yes normal visual inspection and Yes trachea midline OTHER: -short, thick neck Chest: CHEST: Yes Symmetrical chest wall rise Resp: COMMON NORMALS: normal respiratory effort, No retractions, No use of accessory muscles and clear to auscultation bilaterally EFFORT & INSPECTION: Yes able to speak in complete sentences, Yes symmetric chest movement and No tachypneic AUSCULTATION: clear to auscultation bilaterally Cardio: COMMON NORMALS: regular rate, regular rhythm, S1 normal heart sound present, S2 normal heart sound present and No murmurs present (Cardio) RATE: regular rate RHYTHM: regular rhythm HEART SOUNDS: S1 normal heart sound present and S2 normal heart sound present GI: COMMON NORMALS: Normal to inspection, nondistended, normoactive bowel sounds present, Soft to palpation and non-tender INSPECTION: Yes central obesity PALPATION: Yes Soft to palpation Extremity: COMMON NORMALS: normal to inspection, full ROM, no clubbing, cyanosis or edema and no pedal edema Neuro: COMMON NORMALS: patient oriented x3, moves all extremities, no focal motor deficits and no sensory deficits noted SENSORIUM/ORIENTATION: Yes alert Psych: COMMON NORMALS: mental status grossly normal, Normal thought process present, cooperative, normal affect and speech normal SPEECH: Yes normal speech THOUGHT PROCESS: Normal thought process present Skin: COMMON NORMALS: no jaundice, no petechiae and no mottling NARRATIVE SKIN EXAM: -diffuse erythematous purpuric rash on bilateral upper and lower extremities; more coalesced on lower legs and forearms. Looks less erythematous and appears to be coalescing less particularly on the lower extremities -scattered petechial rash on abdomen, back GENERAL SKIN EXAM: petechiae and purpura Data : 10/11/19 06:04 10/11/19 06:04 Micro: Microbiology 10/09/19 01:42 Blood Culture - Preliminary Blood NEGATIVE TO DATE 10/10/19 00:07 Blood Culture - Preliminary Blood NEGATIVE TO DATE A&P Assessment and plan (1) Petechial rash: -appears to be quite diffuse, on bilateral upper and lower extremities, moving centrally to trunk -papular, and petechial in nature, non-pruritic -unclear etiology though had recent tick exposure about 2-3 weeks ago, need to r/o vasculitis -order STACIE, ANCA, RF, anti-ds DNA, serum cryoglobulins; may need skin biopsy; hepatitis panel negative -suspicion for [place] friderichsen syndrome on admission but would expect patient to be more unstable clinically as indication of more disseminated meningococcemia and does not clinically appear to present with symptoms indicative of meningitis (no AMS, nuchal rigidity, HAs, vision changes, fever/chills) -no eosinophilia, low suspicion for drug induced vasculitis -on empiric antibiotic coverage and droplet precautions -noted D-dimer elevation, elevated FDPs; noted normal Hg and platelet count -no PE or overt abnormalities on CT C/A/P except for benign appearing L adrenal nodule -cortisol (random) wnl -hypomagnesemia, hypokalemia; replace as needed -tick panel ordered; on doxycycline -VSS; monitor vital signs -telemetry monitoring -negative DVT on venous duplex -blood cx: prelim negative Status: Acute (2) Adrenal nodule: -appears benign on imaging, L Status: Acute (3) Hypomagnesemia: -replace as needed Status: Acute (4) Hypokalemia: -replace as needed Status: Acute (5) Obesity: -BMI-36 kg/m2 Status: Chronic Qualifiers: Obesity type: due to excess calories Obesity classification: adult class 2 (BMI 35 - 39.9) Serious obesity comorbidity presence: with serious comorbidity Body mass index: BMI 36.0-36.9 Qualified Code(s): E66.01 - Morbid (severe) obesity due to excess calories; Z68.36 - Body mass index (BMI) 36.0-36.9, adult (6) Atrial fibrillation with rapid ventricular response: -appears to be new onset -is on Coreg -Echo: EF=55%, no baseline -telemetry monitoring -[id number] score-3; with petechial rash would hold off on AC Status: Acute (7) GERD (gastroesophageal reflux disease): -on Famotidine Status: Chronic Qualifiers: Esophagitis presence: esophagitis presence not specified Qualified Code(s): K21.9 - Gastro-esophageal reflux disease without esophagitis (8) DM type 2 (diabetes mellitus, type 2): -A1c-6.6 -Acccucheks, ISS Status: Chronic Qualifiers: Diabetes mellitus continuous churn buttermaker insulin use: without continuous churn buttermaker use Diabetes mellitus complication status: without complication Qualified Code(s): E11.9 - Type 2 diabetes mellitus without complications (9) Depression: Status: Chronic Qualifiers: Depression Type: unspecified Qualified Code(s): F32.9 - Major depressive disorder, single episode, unspecified (10) Anxiety: Status: Chronic (11) Hypertension: -BP improved and trending up, will resume oral antihypertensives Status: Chronic Qualifiers: Hypertension type: essential hypertension Qualified Code(s): I10 - Essential (primary) hypertension (12) CAD (coronary atherosclerotic disease): Status: Acute Qualifiers: Coronary Disease-Associated Artery/Lesion type: [place] artery [place] vs. transplanted heart: [place] heart Associated angina: without angina Qualified Code(s): I25.10 - Atherosclerotic heart disease of [place] coronary artery without angina pectoris Additional A&P Information -sepsis on unclear etiology, as evidenced by leukocytosis, lactic acidosis, tachycardia, hypotension; on antibiotics and IVF hydration. Resolved, has good oral intake so will d/c IVF -Chronic systolic CHF; repeat Echo: EF=55%; clinically compensated -diarrhea; C.difficile negative -DVT ppx with SCDs, no AC due to bleeding risk -Dispo: home -Code status: FULL code Attestations Medical Necessity Statement*: Patient requires hospitalization for continued antibiotic treatment pending completion of workup for petechial rash. Time Spent in Patient Care: 16 - 35 minutes (>than 50% of time spent in counselling and/or direct pt care on unit). 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 Diagnoses Petechial rash R23.3 Adrenal nodule E27.8 Hypomagnesemia E83.42 Hypokalemia E87.6 Obesity E66.01; Z68.36 Obesity type: due to excess calories Obesity classification: adult class 2 (BMI 35 - 39.9) Serious obesity comorbidity presence: with serious comorbidity Body mass index: BMI 36.0-36.9 Atrial fibrillation with rapid ventricular response I48.91 GERD (gastroesophageal reflux disease) K21.9 Esophagitis presence: esophagitis presence not specified DM type 2 (diabetes mellitus, type 2) E11.9 Diabetes mellitus continuous churn buttermaker insulin use: without group home use Diabetes mellitus complication status: without complication Depression F32.9 Depression Type: unspecified Anxiety F41.9 Hypertension I10 Hypertension type: essential hypertension CAD (coronary atherosclerotic disease) I25.10 Coronary Disease-Associated Artery/Lesion type: [place] artery [place] vs. transplanted heart: [place] heart Associated angina: without angina
[2019-10-11] MEDS: hydroCHLOROthiazide 25 mg Tablet 12.5 MG PO (18:18)
[2019-10-11] MEDS: lisinopril 20 mg Tablet 40 MG PO (18:18)
[2019-10-11 21:40] LABS: Glucose Point of Care 125 mg/dL (70-110)
[2019-10-11 21:40] LABS: Glucose Point of Care 151 mg/dL (70-110)
[2019-10-11 21:40] LABS: Glucose Point of Care 138 mg/dL (70-110)
[2019-10-12] VITALS (15 sets, daily range): BP systolic 127–159; BP diastolic 87–114; PULSE 88–111; RESP 16–22; TEMP 36.3–36.9; O2SAT 91–99
[2019-10-12] MEDS: ipratropium-albuterol 3 mL Neb INHALATION ×4 (01:16→20:39)
[2019-10-12] MEDS: cefTRIAXone 2,000 MG in sodium chloride 0.9% (plus) 50 ML 100 MG IV (04:12)
[2019-10-12 05:35] LABS: Magnesium 1.6 mg/dL (1.7-2.3)
[2019-10-12 06:16] LABS: Glucose Point of Care 115 mg/dL (70-110)
[2019-10-12] MEDS: carvedilol 6.25 mg Tablet PO ×2 (08:09→17:35)
[2019-10-12] MEDS: lisinopril 20 mg Tablet 40 MG PO (08:09)
[2019-10-12] MEDS: doxycycline 100 mg Tablet PO ×2 (08:09→17:35)
[2019-10-12] MEDS: famotidine 20 mg Tablet PO ×2 (08:09→17:35)
[2019-10-12] MEDS: atorvastatin 40 mg Tablet PO (08:09)
[2019-10-12] MEDS: hydroCHLOROthiazide 25 mg Tablet 12.5 MG PO (08:27)
[2019-10-12] MEDS: ciprofloxacin 500 mg Tablet PO (10:22)
[2019-10-12] MEDS: acetaminophen 325 mg Tablet 650 MG PO ×2 (10:26→17:37)
[2019-10-12 11:23] LABS: Glucose Point of Care 284 mg/dL (70-110)
[2019-10-12 13:41] LABS: Anti-Double Strand DNA AB <1 IU/mL
[2019-10-12 15:30] LABS: Anti-Nuclear Antibody Screen NEGATIVE (NEGATIVE)
[2019-10-12] MEDS: neomycin-poly-bacitracin oint 0.9 gm Pkt 1 APPLIC TOPICAL (16:13)
--- NOTE | 2019-10-12 16:28 | P.CONIM_ITS ---
Providers/Reason For Consult Consulting Physican/Specialty*: General Surgery Yuniel Ann MD Reason for Consult*: Macular papular rash, requesting skin biopsy. Attending Physician: Maria C Reyes MD Primary Care Provider: Sushil Valerio DO History of Present Illness History of Present Illness Jasper Savage is a 69 year old male who started developing a rash about his feet and ankles about a week ago. He thought it was getting better but then it extended up his legs to about his knees. Initially was not pruritic but then became somewhat itchy. He came in the hospital several days ago and has been on antibiotics. Dr. Reyes has asked for a skin biopsy to rule out meningococcal disease. Review of Systems Skin/Breast: Reports: rash Meds/Allergies Home Medications and Allergies Home Medications Medication Instructions Recorded Confirmed Last Taken Type atorvastatin 20 mg PO DAILY 10/11/19 10/11/19 10/09/19 History carvedilol 6.25 mg PO BID 10/11/19 10/11/19 10/09/19 History citalopram 10 mg PO DAILY 10/11/19 10/11/19 10/09/19 08:00 History diltiazem HCl 90 mg PO DAILY 10/11/19 10/11/19 10/09/19 08:00 History hydrochlorothiazide 12.5 mg PO DAILY 10/11/19 10/11/19 10/09/19 09:00 History lisinopril 40 mg PO DAILY 10/11/19 10/11/19 10/09/19 09:00 History metformin 1,000 mg PO BID 10/11/19 10/11/19 10/09/19 21:00 History montelukast 10 mg PO DAILY PRN 10/11/19 10/11/19 10/09/19 History trazodone 100 mg PO DAILY 10/11/19 10/11/19 10/09/19 09:00 History Allergies Allergy/AdvReac Type Severity Reaction Status Date / Time No Known Allergies Allergy Verified 10/09/19 23:44 Current Medications Current Medications Generic Name Dose Route Start Last Admin Trade Name Freq PRN Reason Stop Dose Admin Acetaminophen 650 mg 10/10/19 06:00 10/12/19 10:26 Tylenol PO 650 mg Q4H PRN Administration fever Albuterol/Ipratropium 3 ml 10/12/19 08:00 10/12/19 15:54 Duoneb INHALATION 3 ml Q4H.RESPIRATORY PRN Administration SHORTNESS OF BREATH Atorvastatin Calcium 40 mg 10/10/19 09:00 10/12/19 08:09 Lipitor PO 40 mg DAILY ELMO Administration Carvedilol 6.25 mg 10/10/19 09:00 10/12/19 08:09 Coreg PO 6.25 mg BID ELMO Administration Ciprofloxacin HCl 500 mg 10/10/19 10:00 10/12/19 10:22 Cipro PO 500 mg Q12H ELMO Administration Protocol Doxycycline Monohydrate 100 mg 10/10/19 09:00 10/12/19 08:09 Vibramycin PO 100 mg BID ELMO Administration Protocol Famotidine 20 mg 10/10/19 18:00 10/12/19 08:09 Pepcid Tab PO 20 mg BID ELMO Administration Hydrochlorothiazide 12.5 mg 10/11/19 17:50 10/12/19 08:27 Hctz PO 12.5 mg DAILY ELMO Administration Ceftriaxone Sodium 2,000 mg/ 50 mls @ 100 mls/hr 10/11/19 02:00 10/12/19 04: 12 Sodium Chloride IV 100 mls/hr Q24H ELMO Administration Protocol Insulin Aspart 0 unit 10/10/19 18:00 10/12/19 12:37 Novolog SUBCUT 8 unit WM&BEDTIME ELMO Administration Protocol Lisinopril 40 mg 10/11/19 17:50 10/12/19 08:09 Prinivil PO 40 mg DAILY ELMO Administration PFSH Acute PFSH: Medical History Anxiety CAD (coronary atherosclerotic disease) COPD (chronic obstructive pulmonary disease) Depression DM type 2 (diabetes mellitus, type 2) GERD (gastroesophageal reflux disease) Hypertension Ischemic cardiomyopathy EF 45% Obstructive sleep apnea Unable to tolerate CPAP Surgical History H/O cardiac catheterization Stent 1998 H/O foot surgery History of carpal tunnel surgery Hx of tonsillectomy Family History Other CAD (coronary artery disease) Social History Smoking and tobacco status: heavy tobacco smoker cigarettes [ Other cigarette details: 1 pack/day since young ] Alcohol intake: never Substance/Drug Use: never Household members: spouse and family Housing: House Vitals/I&O/Wt Last Vital Signs Temp 98.4 F 10/12/19 15:47 Pulse 106 H 10/12/19 16:04 Resp 18 10/12/19 16:04 BP 127/94 10/12/19 15:47 Pulse Ox 95 10/12/19 16:04 10/12/19 10/12/19 10/12/19 06:59 14:59 22:59 Intake Total 480 / 480 Balance 480 / 480 Physical Exam Narrative: EXAM NARRATIVE: On examination, the patient does not appear to be in any acute distress. He has a macular/maculopapular rash with somewhat dark red lesions on the lower extremities particularly about the feet and ankles, but these do extend up to about the knee level on either side. A&P Assessment and plan (1) Maculopapular rash: The patient was counseled regarding a punch biopsy of 1 of the lesions on his lower legs. After the procedure was described to him in detail he agreed to proceed. A lesion on the upper aspect of the left lower leg on the anteromedial surface was prepped and anesthetized using 1% lidocaine with 1 to 100,000 parts epinephrine. A 4 mm punch biopsy was used to traverse the skin layers. The tissue was elevated with some forceps and was excised and placed in sterile saline. The specimen was subsequently sent to microbiology in the sterile container. The wound was covered with some triple antibiotic ointment and a sterile dressing. The patient tolerated the procedure well. Status: Acute Consult Attestations Medical Necessity Statement: See admitting service's notation. 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
[2019-10-12 17:14] LABS: Glucose Point of Care 93 mg/dL (70-110)
--- NOTE | 2019-10-12 19:52 | P.PN_ITS ---
Subjective Subjective: Interval history: Patient resting in bed, seems to be feeling better today and reports less pain in his feet. No further progression of rash, states initial feeling of stinging is improving. Blood cx negative to date. Continues to remain in A fib, HR between 90-130bpm intermittently. Feels palpitations when HR increases. Medications: Reviewed: Yes Medication Review Details: Active Medications Generic Name Dose Route Start Last Admin Trade Name Freq PRN Reason Stop Dose Admin Acetaminophen 650 mg 10/10/19 06:00 Tylenol PO Q4H PRN fever Albuterol/Ipratrop ium 3 ml 10/10/19 06:00 10/11/19 14:49 Duoneb INHALATION 3 ml Q6H PRN Administration SHORTNESS OF DAMARIS TH Atorvastatin Calci um 40 mg 10/10/19 09:00 10/11/19 08:43 Lipitor PO 40 mg DAILY ELMO Administration Carvedilol 6.25 mg 10/10/19 09:00 10/11/19 17:33 Coreg PO 6.25 mg BID ELMO Administration Ciprofloxacin HCl 500 mg 10/10/19 10:00 10/11/19 08:43 Cipro PO 500 mg Q12H ELMO Administration Protocol Dextrose 25 ml 10/10/19 16:27 D50w IVP ONCE PRN hypoglycemia prot ocol Protocol Dextrose 50 ml 10/10/19 16:27 D50w IVP PRN PRN hypoglycemia prot ocol Protocol Doxycycline Monohy drate 100 mg 10/10/19 09:00 10/11/19 17:33 Vibramycin PO 100 mg BID ELMO Administration Protocol Famotidine 20 mg 10/10/19 18:00 10/11/19 17:33 Pepcid Tab PO 20 mg BID ELMO Administration Glucagon 1 mg 10/10/19 16:27 Glucagen IM ONCE PRN Adult Acute Hypog lycemia Prot. Protocol Ceftriaxone Sodium 2,000 mg/ 50 mls @ 100 mls/ hr 10/11/19 02:00 10/11/19 03:01 Sodium Chloride IV Infused Q24H ELMO Infusion Protocol Potassium Chloride /Sodium Chloride 20 meq in 1,000 m ls @ 75 mls/hr 10/10/19 06:00 10/11/19 10:15 Sodium Chlor 0.9 % + Kcl 20 Meq IV 75 mls/hr .[id number] ELMO Administration Dextrose 500 mls @ 100 mls /hr 10/10/19 16:27 D5w IV ONCE PRN Adult Acute Hypog lycemia Prot Protocol Insulin Aspart 0 unit 10/10/19 18:00 10/11/19 16:51 Novolog SUBCUT Not Given WM&BEDTIME ELMO Protocol No Known Allergies Allergy (Verified 10/09/19 23:44) Vitals/I&O/Wt Last Vital Signs Temp 98.4 F 10/12/19 15:47 Pulse 106 H 10/12/19 16:04 Resp 18 10/12/19 16:04 BP 127/94 10/12/19 15:47 Pulse Ox 95 10/12/19 16:04 10/12/19 10/12/19 10/12/19 06:59 14:59 22:59 Intake Total 480 / 480 240 / 720 Balance 480 / 480 240 / 720 Physical Exam Narrative: EXAM NARRATIVE: GEN: Awake, alert and oriented, no acute distress CVS: S1S2 N RS: CTA B/L Abd: Soft, nt/nd , bs+ PICKLE PUMPER: no focal neuro deficits EXT: petechail rash over B/L lower extremities with some areas of overlying eschar formation. Data : 10/11/19 06:04 10/11/19 06:04 A&P Assessment and plan (1) Petechial rash: -appears to be quite diffuse, on bilateral upper and lower extremities, moving centrally to trunk -papular, and petechial in nature, non-pruritic -unclear etiology though had recent tick exposure about 2-3 weeks ago -negative STACIE, ANCA, RF, anti-ds DNA, skin biopsy ordered today, hepatitis panel negative -suspicion for [place] friderichsen syndrome on admission but would expect patient to be more unstable clinically as indication of more disseminated meningococcemia and does not clinically appear to present with symptoms indicative of meningitis (no AMS, nuchal rigidity, HAs, vision changes, fever/chills). Blood cx remains negative so far. Ordered for skin biopsy with tissue culture -no eosinophilia, low suspicion for drug induced vasculitis - Tick panel remains pending -on empiric antibiotic coverage with ceftriaxone and doxycycline for now to cover for meningococcus and tick borne illnesses. If skin biopsy returns negative for meningococcus, will d/c ceftriaxone and switch to doxycycline alone - d/c ciprofloxacin -noted D-dimer elevation, elevated FDPs; noted normal Hg and platelet count -no PE or overt abnormalities on CT C/A/P except for benign appearing L adrenal nodule -cortisol (random) wnl -hypomagnesemia, hypokalemia; replace as needed -VSS; monitor vital signs -telemetry monitoring -negative DVT on venous duplex -blood cx: prelim negative, doubt septic embolization -ecthyma gangrenosum can have similar appearance, however negative blood cultures makes this less likely. - No clear historical or epidemiological history to raise suspicion for fungal etiology Status: Acute (2) Adrenal nodule: -appears benign on imaging, L Status: Acute (3) Hypomagnesemia: -replace as needed Status: Acute (4) Hypokalemia: -replace as needed Status: Acute (5) Obesity: -BMI-36 kg/m2 Status: Chronic Qualifiers: Obesity type: due to excess calories Obesity classification: adult class 2 (BMI 35 - 39.9) Serious obesity comorbidity presence: with serious comorbidity Body mass index: BMI 36.0-36.9 Qualified Code(s): E66.01 - Morbid (severe) obesity due to excess calories; Z68.36 - Body mass index (BMI) 36.0- 36.9, adult (6) Atrial fibrillation with rapid ventricular response: -appears to be new onset -is on Coreg 6.25 mg BID -Echo: EF 55%, no baseline -telemetry monitoring -[id number] score-3; with petechial rash would hold off on AC Status: Acute (7) GERD (gastroesophageal reflux disease): -on Famotidine Status: Chronic Qualifiers: Esophagitis presence: esophagitis presence not specified Qualified Code(s): K21.9 - Gastro-esophageal reflux disease without esophagitis (8) DM type 2 (diabetes mellitus, type 2): -A1c-6.6 -Acccucheks, ISS Status: Chronic Qualifiers: 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: without jail use Diabetes mellitus complication status: without complication Qualified Code(s): E11.9 - Type 2 diabetes mellitus without complications (9) Depression: Status: Chronic Qualifiers: Depression Type: unspecified Qualified Code(s): F32.9 - Major depressive disorder, single episode, unspecified (10) Anxiety: Status: Chronic (11) Hypertension: -BP improved and trending up, will resume oral antihypertensives Status: Chronic Qualifiers: Hypertension type: essential hypertension Qualified Code(s): I10 - Essential (primary) hypertension (12) CAD (coronary atherosclerotic disease): Status: Acute Qualifiers: Coronary Disease-Associated Artery/Lesion type: [place] artery [place] vs. transplanted heart: [place] heart Associated angina: without angina Qualified Code(s): I25.10 - Atherosclerotic heart disease of [place] coronary artery without angina pectoris Additional A&P Information -sepsis on unclear etiology, as evidenced by leukocytosis, lactic acidosis, tachycardia, hypotension; on antibiotics and IVF hydration. 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 Diagnoses Petechial rash R23.3 Adrenal nodule E27.8 Hypomagnesemia E83.42 Hypokalemia E87.6 Obesity E66.01; Z68.36 Obesity type: due to excess calories Obesity classification: adult class 2 (BMI 35 - 39.9) Serious obesity comorbidity presence: with serious comorbidity Body mass index: BMI 36.0-36.9 Atrial fibrillation with rapid ventricular response I48.91 GERD (gastroesophageal reflux disease) K21.9 Esophagitis presence: esophagitis presence not specified DM type 2 (diabetes mellitus, type 2) E11.9 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 transplanted heart: [place] heart Associated angina: without angina
[2019-10-12 21:07] LABS: Glucose Point of Care 133 mg/dL (70-110)
[2019-10-13] VITALS (11 sets, daily range): BP systolic 112–149; BP diastolic 80–99; PULSE 93–117; RESP 16–18; TEMP 36.6–36.8; O2SAT 91–98
[2019-10-13] MEDS: ipratropium-albuterol 3 mL Neb INHALATION ×4 (01:18→11:31)
[2019-10-13] MEDS: cefTRIAXone 2,000 MG in sodium chloride 0.9% (plus) 50 ML 100 MG IV (04:01)
[2019-10-13 06:40] LABS: Glucose Point of Care 122 mg/dL (70-110)
--- NOTE | 2019-10-13 07:32 | P.PN_ITS ---
Subjective Subjective: Interval history: The patient has no complaints this morning. He thinks his rash may be continuing to get better. Vitals/I&O/Wt Last Vital Signs Temp 98.1 F 10/13/19 07:23 Pulse 110 H 10/13/19 07:23 Resp 18 10/13/19 07:23 BP 149/94 10/13/19 07:23 Pulse Ox 98 10/13/19 07:23 10/12/19 10/13/19 10/13/19 22:59 06:59 14:59 Intake Total 440 / 920 Balance 440 / 920 Physical Exam Narrative: EXAM NARRATIVE: The patient continues to have some dark red areas of maculopapular rash about the lower legs bilaterally, and to a lesser extent, on his forearms. I agree that they look a little less prominent today. The site of the patient's punch biopsy shows a little bit of old blood on the dressing, but otherwise appears to be doing well. Data : 10/11/19 06:04 10/11/19 06:04 Micro: Microbiology 10/12/19 16:22 Gram Stain - Final Leg - Wound Gram Stain Final 10/12/19-2207 Result NO ORGANISMS SEEN Tissue Culture PENDING A&P Assessment and plan (1) Maculopapular rash: Status post punch biopsy of skin on left lower extremity. Gram stain showed no evidence of organisms. The patient's punch biopsy site will heal on its own. I will be available if needed. Please call if I can be of any further help. Status: Acute Attestations 2 Medical Necessity Statement*: Gomez Coding Level of Care Code Acute Desktop Administrator for Jon Hunter Diagnoses Maculopapular rash R21
[2019-10-13] MEDS: lisinopril 20 mg Tablet 40 MG PO (08:58)
[2019-10-13] MEDS: hydroCHLOROthiazide 25 mg Tablet 12.5 MG PO (08:58)
[2019-10-13] MEDS: carvedilol 6.25 mg Tablet PO ×2 (08:58→17:50)
[2019-10-13] MEDS: atorvastatin 40 mg Tablet PO (08:58)
[2019-10-13] MEDS: doxycycline 100 mg Tablet PO ×2 (08:58→17:49)
--- NOTE | 2019-10-13 10:59 | PC.RESP ---
SMOKING CESSATION AND PULMONARY REHAB INFORMATION SENT TO PATIENT.
--- NOTE | 2019-10-13 11:11 | PC.SOCIAL ---
IMM Update Pg 2 of IMM given and explained to patient who verbalized understanding. Copy provided to patient.
[2019-10-13 11:37] LABS: Glucose Point of Care 167 mg/dL (70-110)
[2019-10-13] MEDS: metoprolol tartrate 1 mg/1 mL SDV 5 mL 5 MG IV (13:16)
[2019-10-13 14:25] LABS: Basophils # 0.1 10^3/uL (0.0-0.1); Basophils % 0.6 %; Eosinophils # 0.1 10^3/uL (0.0-0.8); Hematocrit 42.2 % (42.0-52.0); Hemoglobin 13.8 g/dL (11.7-16.6); Lymphocytes # 2.3 10^3/uL (0.8-4.8); Lymphocytes % 23.7 %; Mean Corpuscular HGB Conc 32.7 g/dL (30.0-36.0); Mean Corpuscular Hemoglobin 31.2 pg (28.0-34.0); Mean Corpuscular Volume 95.5 fL (80-94); Mean Platelet Volume 9.5 fL (7.4-10.4); Monocytes # 0.9 10^3/uL (0.2-0.9); Neutrophils # 6.4 10^3/uL (1.8-7.7); Neutrophils % 65.3 %; Nucleated Red Blood Cells % 0 %; Platelet Count 194 10^3/cmm (130-400); Red Blood Count 4.42 10^6/uL (4.1-5.3); Red Cell Distribution Width 13.4 % (12.1-15.1); White Blood Count 9.8 10^3/uL (4.0-10.0)
[2019-10-13 14:44] LABS: Alanine Aminotransferase 15 U/L (0-41); Albumin Level 3.5 g/dL (3.5-5.2); Alkaline Phosphatase 75 IU/L (40-130); Anion Gap 15.1 (5-19); Aspartate Amino Transferase 13 U/L (0-40); Blood Urea Nitrogen 16 mg/dL (8-23); Calcium 9.6 mg/dL (8.5-10.5); Carbon Dioxide 31 mmol/L (22-29); Chloride 93 mmol/L (98-107); Globulin 3.1 g/dL (1.3-4.6); Glomerular Filtration Rate 112.5 mL/min (90-130); Glucose 137 mg/dL (65-115); Osmolality Calculated 278 mOsm/kg (285-295); Potassium 4.1 mmol/L (3.5-5.1); Sodium 135 mmol/L (136-145); Total Bilirubin 0.9 mg/dL (0.15-1.2); Total Protein 6.6 g/dL (6.6-8.7)
[2019-10-13 16:54] LABS: Glucose Point of Care 140 mg/dL (70-110)
--- NOTE | 2019-10-13 19:03 | PM.DCS ---
Discharge Providers Date of Admission: 10/10/19 05:23 Date of Discharge: October 13, 2019 Attending Provider at Admission: Rohit White MD Attending Provider at Discharge: Maria C Reyes MD Primary Care Provider: Sushil Valerio DO Diagnoses at Discharge Discharge Diagnosis (1) Maculopapular rash: Status: Acute (2) Hypokalemia: Status: Acute (3) Atrial fibrillation with rapid ventricular response: Status: Acute (4) Obstructive sleep apnea: Status: Acute Problem details: Unable to tolerate CPAP (5) COPD (chronic obstructive pulmonary disease): Status: Acute Reason for Visit Reason for Visit: feet swollen Hospital Course Discharge Summary: 69 year old male admitted to the hospital with c/o new onset rash over B/L lower extremities associated with stinging sensation and possible tick exposure. Petechial rash appeared to be quite diffuse, on bilateral upper and lower extremities, moving centrally to trunk -unclear etiology though had recent tick exposure about 2-3 weeks ago -negative STACIE, ANCA, RF, anti-ds DNA, hepatitis panel negative -suspicion for Waterhouse friderichsen syndrome on admission but would have expected patient to be more unstable clinically as indication of more disseminated meningococcemia and does not clinically appear to present with symptoms indicative of meningitis (no AMS, nuchal rigidity, HAs, vision changes, fever/chills). Blood cx remains negative so far. Ordered for skin biopsy with tissue culture for this purpose which did not show any organisms on gram stain -no eosinophilia, low suspicion for drug induced vasculitis - Tick panel remains pending at time of discharge, he is recommended to follow up with PCP for the same, expected from [facility] in the next 2-3 days -on empiric antibiotic coverage with ceftriaxone and doxycycline during admission, being changed to doxycycline on discharge for additional 7 days -noted D-dimer elevation, elevated FDPs of unclear significance; noted normal Hg and platelet count -no PE or overt abnormalities on CT C/A/P except for benign appearing L adrenal nodule -cortisol (random) wnl -negative DVT on venous duplex -blood cx: negative, doubt septic embolization -ecthyma gangrenosum can have similar appearance, however negative blood cultures makes this less likely. - No clear historical or epidemiological history to raise suspicion for fungal etiology Other hospital issues included A fib with RVR, unclear iff this is a new diagnosis as patient's home list of medications includes both cardizem and b blockers. He will follow with cardiology for the same. Anticoagulation deferred for now given possibly petechial rash. On day of discharge patient has occasional runs of RVR up to 150-160, he was recommended to stay until these resolved, however he was eager to retrun home with twice daily monitoring of heart rate at home. Additionally it was discovered that cardizem had remaained on hold during admission and has been resumed upon discharge Physical Exam Narrative: EXAM NARRATIVE: GEN: Awake, alert and oriented, no acute distress CVS: S1S2 N RS: CTA B/L Abd: Soft, nt/nd , bs+ DIGITAL PRODUCT MANAGER: no focal neuro deficits Discharge Data Data Completed and Pending: Completed Studies During Hospitalization Category Date Time Status CT angio chest w abd pel w con Stat Cat Scan 10/10/19 01:39 Completed XR chest 1V jose ble [id number] Stat Exams 10/09/19 23:55 Completed CV echo complete* [id number] Routine Ultrasound 10/11/19 06:00 [place] [id number] Routin e Ultrasound 10/10/19 00:37 Completed Pending at discharge Category Date Time Status Anti-Neutrophil C utoplasmic AB Rout ine Lab 10/10/19 16:35 Received Blood Culture Sta t Lab 10/09/19 01:42 Results Cryoglobulins Larry litative Routine Lab 10/10/19 16:35 Received Tick Panel Stat Lab 10/10/19 00:07 Received Tissue Culture an d Gram Stain Routi ne Lab 10/12/19 16:22 Results Tissue Culture an d Gram Stain Routi ne Lab 10/12/19 16:28 Ordered Labs from last 24 hours 10/13/19 10/13/19 10/13/19 16:52 14:14 14:14 WBC 9.8 RBC 4.42 Hgb 13.8 Hct 42.2 MCV 95.5 H MCH 31.2 MCHC 32.7 RDW 13.4 Plt Count 194 MPV 9.5 Neut % (Auto) 65.3 Lymph % (Auto) 23.7 Miller % (Auto) 9.0 Eos % (Auto) 1.0 Baso % (Auto) 0.6 Neut # (Auto) 6.4 Lymph # (Auto) 2.3 Miller # (Auto) 0.9 Eos # (Auto) 0.1 Baso # (Auto) 0.1 Nucleated RBC % (a uto) 0 Nucleated RBCs # 0.0 Sodium 135 L Potassium 4.1 Chloride 93 L Carbon Dioxide 31 H Anion Gap 15.1 BUN 16 Creatinine 0.7 GFR Calculation 112.5 Glucose 137 H POC Glucose 140 Calculated Osmolal ity 278 L Calcium 9.6 Total Bilirubin 0.9 AST 13 ALT 15 Alkaline Phosphata se 75 Total Protein 6.6 Albumin 3.5 Globulin 3.1 10/13/19 10/13/19 10/12/19 11:24 06:25 20:57 WBC RBC Hgb Hct MCV MCH MCHC RDW Plt Count MPV Neut % (Auto) Lymph % (Auto) Miller % (Auto) Eos % (Auto) Baso % (Auto) Neut # (Auto) Lymph # (Auto) Miller # (Auto) Eos # (Auto) Baso # (Auto) Nucleated RBC % (a uto) Nucleated RBCs # Sodium Potassium Chloride Carbon Dioxide Anion Gap BUN Creatinine GFR Calculation Glucose POC Glucose 167 122 133 Calculated Osmolal ity Calcium Total Bilirubin AST ALT Alkaline Phosphata se Total Protein Albumin Globulin Vitals: Last Vital Signs Temp 98.2 F 10/13/19 16:02 Pulse 93 10/13/19 16:02 Resp 18 10/13/19 16:02 BP 137/90 10/13/19 16:02 Pulse Ox 94 10/13/19 16:02 Discharge Plan Discharge Patient Disposition: Home, Self-Care Condition: Stable Prescriptions: New doxycycline monohydrate 100 mg Tablet 100 mg PO BID 7 Days Qty: 14 RF: 0 Continued diltiazem HCl 90 mg Tablet 90 mg PO DAILY RF: 0 citalopram 10 mg Tablet 10 mg PO DAILY RF: 0 metformin 1,000 mg tablet 1,000 mg PO BID RF: 0 hydrochlorothiazide 12.5 mg capsule 12.5 mg PO DAILY RF: 0 carvedilol 6.25 mg tablet 6.25 mg PO BID RF: 0 atorvastatin 20 mg tablet 20 mg PO DAILY RF: 0 trazodone 100 mg tablet 100 mg PO DAILY RF: 0 montelukast 10 mg tablet 10 mg PO DAILY PRN (Reason: Allergy Symptoms) RF: 0 lisinopril 40 mg tablet 40 mg PO DAILY RF: 0 Discharge Orders: Discharge Order (Routine); Ordered 10/13/19 Ordered By: Maria C Reyes Referrals: Augustina Vang MD [Physician] - 7-10 days (new onset a fib please call for appointment with heart care clinic [phone]) Sushil Valerio DO [Primary Care Provider] - 10/14/19 8:30 am Discharge Diet: Usual diet Discharge Activity: Resume usual activity Patient Instructions: Doxycycline (By mouth), Atrial Fibrillation (DC), Sepsis (DC), Acute Rash (DC), COPD Stoplight Discharge Date/Time: 10/13/19 18:00 Discharge Attestations Time Spent in Discharge Care*: greater than 30 min Specific Discharge Activities: Specific discharge activities: educating patient and evaluating patient/reviewing data Quality Metrics Clinical Quality Measures During this hospital stay, did patient experience: None Coding Level of Care Code Acute Tank Car Reconditioner for Chg Fwd Diagnoses Maculopapular rash R21 Hypokalemia E87.6 Atrial fibrillation with rapid ventricular response I48.91 Obstructive sleep apnea G47.33 COPD (chronic obstructive pulmonary disease) J44.9
[2019-10-14 12:26] LABS: ANCA Interp Negative (Negative)
[2019-10-14 15:40] LABS: Lyme AB Screen <0.90 index
[2019-10-15 16:26] LABS: RMSF IGG NOT DETECTED; RMSF IGM NOT DETECTED
[2019-10-16 16:21] LABS: E. Chaffeensis AB IGG <1:64; E. Chaffeensis AB IGM <1:20
[2019-10-17 03:05] LABS: Cryoglobulins Qualitative None Detected (None Detected)
== END 2019-10-13 18:00 | disposition home or self-care (01) | DRG 872 ==
LOC: ER 10-10 03:33 → MEDSURG 10-10 05:24
PROVIDERS: Emergency Medicine; Family Medicine; Admitting Provider Internal Medicine; PCP Internal Medicine; Visit Provider Student in an Organized Health Care Education/Training Program
DX: A41.9 Sepsis, unspecified organism (principal); E87.2 Acidosis; I25.5 Ischemic cardiomyopathy; R23.3 Spontaneous ecchymoses; I95.9 Hypotension, unspecified; I48.91 Unspecified atrial fibrillation; F41.9 Anxiety disorder, unspecified; I25.10 Atherosclerotic heart disease of native coronary artery without angina pectoris; Z95.5 Presence of coronary angioplasty implant and graft; J44.9 Chronic obstructive pulmonary disease, unspecified; F32.9 Major depressive disorder, single episode, unspecified; E11.9 Type 2 diabetes mellitus without complications; K21.9 Gastro-esophageal reflux disease without esophagitis; I50.9 Heart failure, unspecified; I11.0 Hypertensive heart disease with heart failure; G47.33 Obstructive sleep apnea (adult) (pediatric); E66.9 Obesity, unspecified; Z68.36 Body mass index [BMI] 36.0-36.9, adult; E87.6 Hypokalemia; E83.42 Hypomagnesemia; E27.9 Disorder of adrenal gland, unspecified; K52.9 Noninfective gastroenteritis and colitis, unspecified
CPT/HCPCS: 12345; 36415; 36416; 71045; 71275; 74177; 80053; 80074; 81001; 82533; 82962; 83036; 83516; 83605; 83735; 83880; 84484; 85025; 85362; 85378; 85384; 85610; 85651; 85730; 86038; 86140; 86160; 86225; 86431; 87040; 87070; 87077; 87176; 87186; 87205; 87493; 93005; 93306; 93970; 94640; 96372; 99283; J0696; J1815; J1956; J2001; J3475; J3490; J7030; J7050; Q9967

== ENCOUNTER 2019-10-22 21:00 | Emergency (ER) | payer MEDICARE, SELFPAY ==
[2019-10-22 21:10] VITALS: BP 100/68; PULSE 97; RESP 14; TEMP 36.7; O2SAT 97; BMI 35.6
--- NOTE | 2019-10-22 23:01 | ED_ITS ---
HPI - Skin/Abscess/Foreign Bdy General: Chief complaint: Skin/Abscess/Foreign Body Stated complaint: rash on legs Time Seen by Provider: 10/22/19 23:01 History of Present Illness: HPI narrative: Patient is a 69-year-old male who comes to the ED with a painful rash on upper and lower extremities bilaterally. Patient was seen here and admitted to the hospital for same complaint back on October 09. An extensive work-up was performed on maculopapular rash and etiology was still unclear at d/c. patient was given doxycycline to treat tick bites and tick panel was pending at time of d/c. -negative STACIE, ANCA, RF, anti-ds DNA, hepatitis panel negative. Patient reports here in the ED today because maculopapular rash is the same, but more painful. He describes the pain as a burning sensation. He says his pain is better when he is sitting or walking around. His pain gets worse when he lays flat with his legs up. He rates the pain 10 out of 10. Patient has been taking doxycycline, prednisone and tramadol. Associated symptoms: Deny chills, fever(s), nausea or vomiting Review of Systems Const: Denies: fever(s), chills or fatigue Eyes: Denies: change in vision or eye discomfort ENMT: Denies: throat pain, odynophagia, nasal discharge or nasal congestion Card: Denies: chest pain, palpitations, edema, swelling of feet/ankles, dysp braden on exertion or orthopnea Resp: Denies: dyspnea, productive cough or non-productive cough GI: Denies: abdominal pain, nausea, vomiting, diarrhea, constipation or hematochezia : Denies: flank pain, difficulty urinating, dysuria or hematuria Musc: Denies: neck pain, back pain or extremity swelling Skin/Breast: Reports: rash (Painful rash on upper and lower extremities bilaterally.); Denies: new lesions Neuro: Denies: headache(s), numbness in extremities or weakness in extremities [facility] ED PFSH: Medical History Anxiety CAD (coronary atherosclerotic disease) COPD (chronic obstructive pulmonary disease) Depression DM type 2 (diabetes mellitus, type 2) GERD (gastroesophageal reflux disease) Hypertension Ischemic cardiomyopathy EF 45% Obstructive sleep apnea Unable to tolerate CPAP Surgical History H/O cardiac catheterization Stent 1998 H/O foot surgery History of carpal tunnel surgery Hx of tonsillectomy Family History Other CAD (coronary artery disease) Social History Smoking and tobacco status: current every day smoker cigarettes [ Other cigarette details: 1 pack/day since young ] Alcohol intake: never Household members: spouse and family Housing: House Physical Exam Const: COMMON NORMALS: no acute distress, patient oriented x3 and alert GENERAL APPEARANCE: cooperative HENMT: COMMON NORMALS: normocephalic HEAD & SCALP: normocephalic MOUTH: Normal oral and palatal mucosa present THROAT: posterior oropharynx normal and uvula midline Neck/C-Spine: COMMON NORMALS: supple GENERAL: Yes normal visual inspection Resp: COMMON NORMALS: normal respiratory effort, No retractions, No use of accessory muscles and clear to auscultation bilaterally AUSCULTATION: clear to auscultation bilaterally Cardio: COMMON NORMALS: regular rate, regular rhythm, S1 normal heart sound present, S2 normal heart sound present, No gallops present (Cardio), No clicks present (Cardio), No murmurs present (Cardio) and Peripheral pulses 2+ throughout RATE: regular rate RHYTHM: regular rhythm HEART SOUNDS: S1 normal heart sound present and S2 normal heart sound present PERIPHERAL PULSES: Peripheral pulses 2+ throughout GI: COMMON NORMALS: Normal to inspection, nondistended, normoactive bowel sounds present, Soft to palpation, non-tender and no masses PALPATION: Yes Soft to palpation : COMMON NORMALS: Yes no CVA tenderness BLADDER/KIDNEY EXAM: Yes no CVA tenderness Back/Pelvis: COMMON NORMALS: no CVA tenderness Extremity: NARRATIVE EXTREMITY EXAM: Maculopapular rash that is tender to the touch on both right and left upper and lower extremities. GENERAL: Yes normal exam except as noted Neuro: COMMON NORMALS: patient oriented x3 and moves all extremities SENSORIUM/ORIENTATION: Yes alert Skin: NARRATIVE SKIN EXAM: Patient has maculopapular rash on both right and left upper and lower extremities. It is more predominant in both lower extremities. It is painful to the touch. Course Vital Signs: Vital signs: Vital Signs Temperature 98.0 F 10/22/19 21:10 Pulse Rate 88 10/23/19 01:51 Respiratory Rate 20 H 10/23/19 01:51 Blood Pressure 97/52 10/23/19 01:51 Pulse Oximetry 93 10/23/19 01:51 MDM - Skin/Abscess/Foreign Bdy MDM Narrative: Medical decision making narrative: Patient is a 69-year-old male who comes to the ED with painful maculopapular rash on upper and lower extremities bilaterally. Patient was recently hospitalized for rash and extensive work-up was performed and no etiology was identified at discharge. Tick panel was still pending when patient was discharged. Patient described pain as a burning sensation on lower extremities around the rash. I reviewed patient's previous labs and saw that his tick panel lab did come back positive for Ehrlichia chaffeensis which causes Ehrlichiosis. Patient has been taking doxycycline which is the treatment for Ehrlichiosis since he was admitted in the hospital about 2 weeks ago. Patient is still currently taking doxycycline and has another 7-days left. Patient was discharged and told to follow-up with PCP at his scheduled appointment on October 29. I told him to continue taking his doxycycline. I sent him home with a prescription for gabapentin to help with pain. I have informed him that he can return to the ED if he has any worsening symptoms. Patient understood and agreed with plan. Lab Data: Attestation: I reviewed the patient's lab results. Labs: Lab Results 10/22/19 10/22/19 Range/Units 23:16 23:16 WBC 17.4 H (4.0-10.0) 10^3/ uL RBC 4.62 (4.1-5.3) 10^6/u L Hgb 14.0 (11.7-16.6) g/dL Hct 44.4 (42.0-52.0) % MCV 96.1 H (80-94) fL MCH 30.3 (28.0-34.0) pg MCHC 31.5 (30.0-36.0) g/dL RDW 13.0 (12.1-15.1) % Plt Count 408 H (130-400) 10^3/c mm MPV 9.9 (7.4-10.4) fL Neut % (Auto) 67.5 % Lymph % (Auto) 25.0 % [place] % (Auto) 6.0 % Eos % (Auto) 0.6 % Baso % (Auto) 0.3 % Neut # (Auto) 11.7 H (1.8-7.7) 10^3/u L Lymph # (Auto) 4.4 (0.8-4.8) 10^3/u L [place] # (Auto) 1.1 H (0.2-0.9) 10^3/u L Eos # (Auto) 0.1 (0.0-0.8) 10^3/u L Baso # (Auto) 0.1 (0.0-0.1) 10^3/u L Nucleated RBC % (a uto) 0 % Nucleated RBCs # 0.0 /100WBC Sodium 140 (136-145) mmol/L Potassium 4.6 (3.5-5.1) mmol/L Chloride 95 L (98-107) mmol/L Carbon Dioxide 33 H (22-29) mmol/L Anion Gap 16.6 (5-19) BUN 36 H (8-23) mg/dL Creatinine 1.0 (0.7-1.2) mg/dL GFR Calculation 74.5 L (90-130) mL/min Glucose 127 H (65-115) mg/dL Calculated Osmolal ity 289 (285-295) mOsm/k g Calcium 10.2 (8.5-10.5) mg/dL Total Bilirubin 0.6 (0.15-1.2) mg/dL AST 16 (0-40) U/L ALT 19 (0-41) U/L Alkaline Phosphata se 71 (40-130) IU/L Total Protein 6.9 (6.6-8.7) g/dL Albumin 3.9 (3.5-5.2) g/dL Globulin 3.0 (1.3-4.6) g/dL Discharge Plan Discharge Patient Disposition: Home, Self-Care Clinical Impression: Maculopapular rash, 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 Condition: Stable Prescriptions: New gabapentin 300 mg capsule 300 mg PO DAILY Qty: 30 RF: 0 No Action diltiazem HCl 90 mg Tablet 90 mg PO DAILY RF: 0 citalopram 10 mg Tablet 10 mg PO DAILY RF: 0 metformin 1,000 mg tablet 1,000 mg PO BID RF: 0 hydrochlorothiazide 12.5 mg capsule 12.5 mg PO DAILY RF: 0 carvedilol 6.25 mg tablet 6.25 mg PO BID RF: 0 atorvastatin 20 mg tablet 20 mg PO DAILY RF: 0 trazodone 100 mg tablet 100 mg PO DAILY RF: 0 montelukast 10 mg tablet 10 mg PO DAILY PRN (Reason: Allergy Symptoms) RF: 0 lisinopril 40 mg tablet 40 mg PO DAILY RF: 0 Discharge Orders: Discharge Order (Routine); Ordered 10/23/19 Ordered By: Ron Olsen Referrals: Sushil Valerio DO [Primary Care Provider] - Discharge Diet: Regular Discharge Activity: Resume usual activity Patient Instructions: Tick Bite (ED) Activity Restrictions/Additional Instructions: Continue taking your doxycycline as prescribed. Follow-up with your PCP at your scheduled appointment on 10/29. I am sending you home with a prescription for gabapentin for pain. On day 1 the first dose of gabapentin will be 1 tablet. Day 2 take 2 tablets. Day 3 and after take 3 tablets daily. Talk with your PCP about adjusting dose as needed. Continue all other home meds. Discharge Date/Time: 10/23/19 01:52 Coding Level of Care Code ED Critical Care Nurse Specialist for Jon Fwd Exam Comprehensive
[2019-10-22] MEDS: HYDROcodone-acetaminophen 7.5-325 mg Tablet 1 TAB PO (23:39)
[2019-10-23 00:42] LABS: Basophils # 0.1 10^3/uL (0.0-0.1); Basophils % 0.3 %; Eosinophils # 0.1 10^3/uL (0.0-0.8); Eosinophils % 0.6 %; Hematocrit 44.4 % (42.0-52.0); Lymphocytes # 4.4 10^3/uL (0.8-4.8); Mean Corpuscular HGB Conc 31.5 g/dL (30.0-36.0); Mean Corpuscular Hemoglobin 30.3 pg (28.0-34.0); Mean Corpuscular Volume 96.1 fL (80-94); Mean Platelet Volume 9.9 fL (7.4-10.4); Monocytes # 1.1 10^3/uL (0.2-0.9); Neutrophils # 11.7 10^3/uL (1.8-7.7); Neutrophils % 67.5 %; Nucleated Red Blood Cells % 0 %; Platelet Count 408 10^3/cmm (130-400); Red Blood Count 4.62 10^6/uL (4.1-5.3); White Blood Count 17.4 10^3/uL (4.0-10.0)
[2019-10-23 00:44] LABS: Alanine Aminotransferase 19 U/L (0-41); Albumin Level 3.9 g/dL (3.5-5.2); Alkaline Phosphatase 71 IU/L (40-130); Anion Gap 16.6 (5-19); Aspartate Amino Transferase 16 U/L (0-40); Blood Urea Nitrogen 36 mg/dL (8-23); Calcium 10.2 mg/dL (8.5-10.5); Carbon Dioxide 33 mmol/L (22-29); Chloride 95 mmol/L (98-107); Glomerular Filtration Rate 74.5 mL/min (90-130); Glucose 127 mg/dL (65-115); Osmolality Calculated 289 mOsm/kg (285-295); Potassium 4.6 mmol/L (3.5-5.1); Sodium 140 mmol/L (136-145); Total Bilirubin 0.6 mg/dL (0.15-1.2); Total Protein 6.9 g/dL (6.6-8.7)
[2019-10-23 01:51] VITALS: BP 97/52; PULSE 88; RESP 20; O2SAT 93
== END 2019-10-23 01:52 | disposition home or self-care (01) ==
PROVIDERS: Emergency Provider Physician Assistant; PCP Internal Medicine
DX: R21 Rash and other nonspecific skin eruption (principal); A77.41 Ehrlichiosis chaffeensis [E. chaffeensis]; Z79.84 Long term (current) use of oral hypoglycemic drugs; I25.10 Atherosclerotic heart disease of native coronary artery without angina pectoris; J44.9 Chronic obstructive pulmonary disease, unspecified; E11.9 Type 2 diabetes mellitus without complications; I10 Essential (primary) hypertension; F17.210 Nicotine dependence, cigarettes, uncomplicated
CPT/HCPCS: 12345; 80053; 85025; 87040; 99281; 99283

== ENCOUNTER 2019-11-03 09:48 | Observation (INO) | payer MEDICARE, SELFPAY ==
[2019-11-03] VITALS (21 sets, daily range): BP systolic 55–139; BP diastolic 38–80; PULSE 63–91; RESP 14–20; TEMP 36.3; O2SAT 89–99; BMI 34.4
--- NOTE | 2019-11-03 10:11 | XRR_ITS ---
PROCEDURE INFORMATION: Exam: XR Chest, 1 View Exam date and time: 11/03/2019 10:23 AM Age: 69 years old Clinical indication: Cough and dyspnea; Additional info: Dyspnea/cough TECHNIQUE: Imaging protocol: XR of the chest Views: 1 view. COMPARISON: CR XR chest 1V portable [id number] 10/09/2019 11:57 PM FINDINGS: Lungs: Unremarkable. No consolidation. Pleural space: Unremarkable. No pleural effusion. No pneumothorax. Heart/Mediastinum: Unremarkable. No cardiomegaly. Bones/joints: Unremarkable. XR/XR chest 1V portable [id number] IMPRESSION: No acute findings.
--- NOTE | 2019-11-03 10:12 | ECG_ITS ---
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 Measurements Intervals [place] Rate: 85 P: NM: -1 QRS: 38 QRSD: 99 T: 36 QT: 354 QTc: 423 Interpretive Statements ATRIAL FIBRILLATION ABNORMAL RHYTHM ECG Compared to ECG 10/10/2019 06:40:58 No significant changes Electronically Signed On 11-03-2019 23:41:46 CDT by Hailey Holley M.D. [id number]
[2019-11-03] MEDS: SODIUM CHLORIDE 0.9% 3361.1 ML IV (10:16)
[2019-11-03] MEDS: aztreonam 2,000 MG in sodium chloride 0.9% (plus) 100 ML 200 MG IV (10:20)
[2019-11-03 10:23] LABS: Ketone (Acetest) Serum Negative (Negative)
[2019-11-03 10:24] LABS: Basophils # 0.1 10^3/uL (0.0-0.1); Basophils % 0.4 %; Eosinophils # 0.1 10^3/uL (0.0-0.8); Eosinophils % 0.8 %; Hematocrit 42.5 % (42.0-52.0); Hemoglobin 13.4 g/dL (11.7-16.6); Mean Corpuscular HGB Conc 31.5 g/dL (30.0-36.0); Mean Corpuscular Hemoglobin 30.3 pg (28.0-34.0); Mean Corpuscular Volume 96.2 fL (80-94); Mean Platelet Volume 10.4 fL (7.4-10.4); Monocytes % 6.7 %; Neutrophils # 10.7 10^3/uL (1.8-7.7); Neutrophils % 71.7 %; Nucleated Red Blood Cells % 0 %; Platelet Count 389 10^3/cmm (130-400); Red Blood Count 4.42 10^6/uL (4.1-5.3); Red Cell Distribution Width 12.8 % (12.1-15.1); White Blood Count 14.9 10^3/uL (4.0-10.0)
[2019-11-03 10:29] LABS: INR 1.02 (0.8-1.2)
[2019-11-03 10:30] LABS: Lactate (Lactic Acid level) 2.1 mmol/L (0.5-2.2)
[2019-11-03 10:34] LABS: Alanine Aminotransferase 11 U/L (0-41); Albumin Level 3.5 g/dL (3.5-5.2); Alkaline Phosphatase 64 IU/L (40-130); Anion Gap 18.1 (5-19); Aspartate Amino Transferase 11 U/L (0-40); Blood Urea Nitrogen 40 mg/dL (8-23); Calcium 9.5 mg/dL (8.5-10.5); Carbon Dioxide 33 mmol/L (22-29); Chloride 93 mmol/L (98-107); Creatine Phosphokinase 25 U/L (39-308); Globulin 2.9 g/dL (1.3-4.6); Glomerular Filtration Rate 66.8 mL/min (90-130); Glucose 122 mg/dL (65-115); Lipase 13 U/L (13-60); Osmolality Calculated 289 mOsm/kg (285-295); Potassium 4.1 mmol/L (3.5-5.1); Sodium 140 mmol/L (136-145); Total Bilirubin 0.9 mg/dL (0.15-1.2); Total Protein 6.4 g/dL (6.6-8.7)
[2019-11-03 10:35] LABS: Troponin(5th) Baseline 42 ng/L (0-15)
[2019-11-03 10:42] LABS: ABG PCO2 49.6 mmHg (35-45); ABG PH Result 7.38 (7.35-7.45); Arterial Blood Gas Hematocrit 33.6 % (42-52); Base Excess ABG 3.5 mmol/L (-2.0-2.0); Blood Gas Allen Test Pos; Blood Gas Sample Site Radial, left; Blood Gas Sample Type Arterial; Carboxyhemoglobin 3.3 %THgb (0.4-20.1); HCO3 ABG 29.4 mmol/L (22-26); HGB O2 Sat 94.5 % (95-100); Ionized Calcium Level - ABG 1.1 mmol/L (1.1-1.4); Methemoglobin 0.2 % (0.4-1.5); Oxygen Device NC; Oxygen Saturation ABG 97.9; PO2 ABG 93.1 mmHg (80.0-100.0); Potassium Level - ABG 3.3 mmol/L (3.5-5.0)
--- NOTE | 2019-11-03 10:45 | PC.NURSE ---
BP readings confirmed with manual cuff.
[2019-11-03 11:06] LABS: Procalcitonin 0.23 ng/mL (0-0.5)
--- NOTE | 2019-11-03 11:17 | USCV_ITS ---
Jasper Savage Age: 69 Gender: M : 1950 Exam Date: 11/03/2019 11:29 Ordering Phys: Lj Morgan DO Technologist: Jack Caballero Exam Location: [facility] [place] Indication: LEG EDEMA HISTORY: Lower extremity edema. PROCEDURES: Venous duplex imaging was performed in bilateral lower extremities. The following venous structures were evaluated: common femoral vein, profunda vein, proximal portion of the greater saphenous vein, superficial femoral vein, and the popliteal vein. In addition, the posterior tibial and peroneal trunk were evaluated. Serial compression, augmentation maneuvers, and spectral Doppler flow evaluation were performed. FINDINGS: Normal 2-D Doppler and augmentation and compressibility throughout the lower extremity venous structures. Additional imaging through the proximal calf veins also reveals no thrombus. Limited evaluation of the greater saphenous vein is patent with no thrombus. CONCLUSIONS No DVT bilateral lower extremities. Dr. Chantell Whaley DO (Electronically Signed) Final Date: 05 November 2019 07:57 S
--- NOTE | 2019-11-03 11:47 | W.ED.WEAKNES ---
HPI - Weakness General: Chief complaint: Weakness Stated complaint: LOW BP/WEAK/DIZZY Time Seen by Provider: 11/03/19 10:11 History of Present Illness: HPI Narrative: 69-year-old male comes in complaining of weakness dizziness and headache for last 2 to 3 days when he stands up he feels very lightheaded and dizzy he actually fell this morning. For the last month or so he is been on antibiotics he has been treated with oral antibiotics as an outpatient for staph infection of his legs looking back to the old chart he was hospitalized for a rash of multiple different potential infectious etiologies at one point he was treated for presumed early ketosis on doxycycline. He recently had his antibiotics stopped by his primary care doctor. When he presents here today as blood pressure in the 60s systolic initially he has been nauseous he denies any vomiting or diarrhea denies any fever denies any chest pain or abdominal pain he does have open clusters of eschared wounds on his lower extremities bilaterally. Complaint: generalized weakness Onset (ago): day(s) Duration: constant and progressively worsening Severity: severe Exacerbating factors: movement and exertion Context: recent illness Associated symptoms: Reports myalgias, nausea, rash, short of breath and syncope; Denies chest pain, confusion, decreased appetite, diaphoresis, dysuria, easy bruising, fever(s), headache(s) or vomiting Review of Systems Const: Denies: fever(s) or diaphoresis ENMT: Denies: throat pain, ear or mastoid pain, nasal discharge or nasal congestion Card: Reports: syncope; Denies: chest pain Resp: Denies: dyspnea, productive cough or non-productive cough GI: Reports: nausea; Denies: vomiting : Denies: dysuria Skin/Breast: Denies: rash or pruritus Neuro: Denies: headache(s) or confusion Arnol/Lymph: Denies: easy bruising PFSH ED PFSH: Medical History Anxiety CAD (coronary atherosclerotic disease) COPD (chronic obstructive pulmonary disease) Depression DM type 2 (diabetes mellitus, type 2) GERD (gastroesophageal reflux disease) Hypertension Ischemic cardiomyopathy EF 45% Obstructive sleep apnea Unable to tolerate CPAP Surgical History H/O cardiac catheterization Stent 1998 H/O foot surgery History of carpal tunnel surgery Hx of tonsillectomy Family History Other CAD (coronary artery disease) Social History (Updated 11/03/19 @ 14:48 by Tito Mckeon MD) Smoking and tobacco status: current every day smoker cigarettes [ Other cigarette details: 1 pack/day since young ] Alcohol intake: former Substance/Drug Use: never Household members: spouse and family Housing: House Physical Exam Const: COMMON NORMALS: no acute distress GENERAL APPEARANCE: cooperative and comfortable ORIENTATION/CONSCIOUSNESS: Yes awake, Yes oriented to person, Yes oriented to place and Yes oriented to time HENMT: COMMON NORMALS: normocephalic, atraumatic, hearing grossly normal bilaterally, external ears normal, EAC's normal, TM's normal bilaterally, Normal nasal mucous membranes and turbinates present, moist oral mucous membranes and oropharynx normal HEAD & SCALP: normocephalic and atraumatic NOSE: Normal nasal mucous membranes and turbinates present EXTERNAL EAR: Yes external ears normal EXTERNAL AUDITORY CANAL: EAC's normal TYMPANIC MEMBRANE: TM's normal bilaterally Eye: COMMON NORMALS: Equal, round and reactive pupils present, EOMs intact bilaterally, conjunctivae normal and no scleral icterus CONJUNCTIVA: Yes conjunctivae normal PUPIL: Yes Equal, round and reactive pupils present Neck/C-Spine: COMMON NORMALS: full ROM, no lymphadenopathy, supple and no JVD Lymph: LYMPHATIC: no lymphadenopathy noted and no lymphedema noted Resp: COMMON NORMALS: normal respiratory effort, No retractions, No use of accessory muscles and clear to auscultation bilaterally AUSCULTATION: clear to auscultation bilaterally Cardio: COMMON NORMALS: no JVD, regular rate, regular rhythm and No murmurs present (Cardio) RATE: regular rate RHYTHM: regular rhythm GI: COMMON NORMALS: Soft to palpation and No hepatosplenomegaly present AUSCULTATION: Yes normoactive bowel sounds PALPATION: Yes Soft to palpation, No Tenderness to palpation present (GI), No Guarding due to palpation present (GI) and Yes No hepatosplenomegaly present Extremity: COMMON NORMALS: normal to inspection, capillary refill normal, no clubbing, cyanosis or edema, no calf tenderness and no pedal edema Neuro: SENSORIUM/ORIENTATION: Yes oriented to person, Yes oriented to place and Yes oriented to time Skin: NARRATIVE SKIN EXAM: Clustered of eschared lesions on the lower extremities bilaterally nearly circumferential. They are dry if you have a little bit of drainage no bullous formation there is mild localized redness. Course Vital Signs: Vital signs: Vital Signs Temperature 97.8 F 11/04/19 08:47 Pulse Rate 73 11/04/19 12:52 Respiratory Rate 13 11/04/19 12:52 Blood Pressure 116/69 11/04/19 12:52 Pulse Oximetry 96 11/04/19 12:52 MDM - Weakness MDM Narrative: Medical decision making narrative: Patient has been continuing to take his antihypertensives show fluid bolus he had a large urine output ordered some Levophed but his blood pressure spontaneously got up to 106 with a map of 74 so we hold off on Levophed for now he will still need to be admitted to the ICU for sepsis needs been started on vancomycin for cellulitis as a source. Lab Data: Labs: Lab Results 11/03/19 11/03/19 11/03/19 Range/Units 10:00 10:00 10:00 WBC 14.9 H (4.0-10.0) 10^3/ uL RBC 4.42 (4.1-5.3) 10^6/u L Hgb 13.4 (11.7-16.6) g/dL Hct 42.5 (42.0-52.0) % MCV 96.2 H (80-94) fL MCH 30.3 (28.0-34.0) pg MCHC 31.5 (30.0-36.0) g/dL RDW 12.8 (12.1-15.1) % Plt Count 389 (130-400) 10^3/c mm MPV 10.4 (7.4-10.4) fL Neut % (Auto) 71.7 % Lymph % (Auto) 20.0 % [place] % (Auto) 6.7 % Eos % (Auto) 0.8 % Baso % (Auto) 0.4 % Neut # (Auto) 10.7 H (1.8-7.7) 10^3/u L Lymph # (Auto) 3.0 (0.8-4.8) 10^3/u L [place] # (Auto) 1.0 H (0.2-0.9) 10^3/u L Eos # (Auto) 0.1 (0.0-0.8) 10^3/u L Baso # (Auto) 0.1 (0.0-0.1) 10^3/u L Nucleated RBC % (a uto) 0 % Nucleated RBCs # 0.0 /100WBC PT 13.70 H (10.5-13.3) SECO NDS INR 1.02 (0.8-1.2) APTT 29.0 (23.9-36.7) SECO NDS Specimen Type Sample Site ABG pH (7.35-7.45) ABG pCO2 (35-45) mmHg ABG pO2 (80.0-100.0) mmH g ABG HCO3 (22-26) mmol/L ABG O2 Saturation ABG Base Excess (-2.0-2.0) mmol/ L Joseluis Test Hematocrit (42-52) % Hgb O2 Saturation (95-100) % Carboxyhemoglobin (0.4-20.1) %THgb Methemoglobin (0.4-1.5) % Total Hemoglobin (14-18) g/dL Ionized Calcium (1.1-1.4) mmol/L O2 Delivery Device Railroad Mechanic ID Sodium 140 (136-145) mmol/L Potassium 4.1 (3.5-5.1) mmol/L Chloride 93 L (98-107) mmol/L Carbon Dioxide 33 H (22-29) mmol/L Anion Gap 18.1 (5-19) BUN 40 H (8-23) mg/dL Creatinine 1.1 (0.7-1.2) mg/dL GFR Calculation 66.8 L (90-130) mL/min Glucose 122 H (65-115) mg/dL POC Glucose (70-110) mg/dL Calculated Osmolal ity 289 (285-295) mOsm/k g Lactate (0.5-2.2) mmol/L Calcium 9.5 (8.5-10.5) mg/dL Total Bilirubin 0.9 (0.15-1.2) mg/dL AST 11 (0-40) U/L ALT 11 (0-41) U/L Alkaline Phosphata se 64 (40-130) IU/L Creatine Kinase 25 L (39-308) U/L Troponin I 6 Hour (0-15) ng/L Troponin I Hi Sens Del (0-12) ng/L Troponin T Baselin e (0-15) ng/L Troponin T 120 Min [place] (0-15) ng/L Delta Troponin T (0-10) ABS# Total Protein 6.4 L (6.6-8.7) g/dL Albumin 3.5 (3.5-5.2) g/dL Globulin 2.9 (1.3-4.6) g/dL Lipase 13 (13-60) U/L Procalcitonin 0.23 (0-0.5) ng/mL Urine Color (Yellow) Urine Appearance (CLEAR) Urine pH (5-7) Ur Specific Gravit y (1.005-1.030) Urine Protein (Negative) Urine Glucose (UA) (Normal) Urine Ketones (Negative) Urine Blood (Negative) Urine Nitrate (Negative) Urine Bilirubin (NEGATIVE) Urine Urobilinogen (Negative) mg/dL Ur Leukocyte Teresa ase (Negative) Urine RBC (0-2) /hpf Urine WBC (0-5) /hpf Ur Squamous Epith Cells (0-5) Urine Bacteria (NONE) Hyaline Casts Serum Ketones (Negative) 11/03/19 11/03/19 11/03/19 Range/Units 10:00 10:00 10:00 WBC (4.0-10.0) 10^3/ uL RBC (4.1-5.3) 10^6/u L Hgb (11.7-16.6) g/dL Hct (42.0-52.0) % MCV (80-94) fL MCH (28.0-34.0) pg MCHC (30.0-36.0) g/dL RDW (12.1-15.1) % Plt Count (130-400) 10^3/c mm MPV (7.4-10.4) fL Neut % (Auto) % Lymph % (Auto) % [place] % (Auto) % Eos % (Auto) % Baso % (Auto) % Neut # (Auto) (1.8-7.7) 10^3/u L Lymph # (Auto) (0.8-4.8) 10^3/u L [place] # (Auto) (0.2-0.9) 10^3/u L Eos # (Auto) (0.0-0.8) 10^3/u L Baso # (Auto) (0.0-0.1) 10^3/u L Nucleated RBC % (a uto) % Nucleated RBCs # /100WBC PT (10.5-13.3) SECO NDS INR (0.8-1.2) APTT (23.9-36.7) SECO NDS Specimen Type Sample Site ABG pH (7.35-7.45) ABG pCO2 (35-45) mmHg ABG pO2 (80.0-100.0) mmH g ABG HCO3 (22-26) mmol/L ABG O2 Saturation ABG Base Excess (-2.0-2.0) mmol/ L Joseluis Test Hematocrit (42-52) % Hgb O2 Saturation (95-100) % Carboxyhemoglobin (0.4-20.1) %THgb Methemoglobin (0.4-1.5) % Total Hemoglobin (14-18) g/dL Ionized Calcium (1.1-1.4) mmol/L O2 Delivery Device Railroad Mechanic ID Sodium (136-145) mmol/L Potassium (3.5-5.1) mmol/L Chloride (98-107) mmol/L Carbon Dioxide (22-29) mmol/L Anion Gap (5-19) BUN (8-23) mg/dL Creatinine (0.7-1.2) mg/dL GFR Calculation (90-130) mL/min Glucose (65-115) mg/dL POC Glucose (70-110) mg/dL Calculated Osmolal ity (285-295) mOsm/k g Lactate 2.1 (0.5-2.2) mmol/L Calcium (8.5-10.5) mg/dL Total Bilirubin (0.15-1.2) mg/dL AST (0-40) U/L ALT (0-41) U/L Alkaline Phosphata se (40-130) IU/L Creatine Kinase (39-308) U/L Troponin I 6 Hour (0-15) ng/L Troponin I Hi Sens Del (0-12) ng/L Troponin T Baselin e 42 H (0-15) ng/L Troponin T 120 Min [place] (0-15) ng/L Delta Troponin T (0-10) ABS# Total Protein (6.6-8.7) g/dL Albumin (3.5-5.2) g/dL Globulin (1.3-4.6) g/dL Lipase (13-60) U/L Procalcitonin (0-0.5) ng/mL Urine Color (Yellow) Urine Appearance (CLEAR) Urine pH (5-7) Ur Specific Gravit y (1.005-1.030) Urine Protein (Negative) Urine Glucose (UA) (Normal) Urine Ketones (Negative) Urine Blood (Negative) Urine Nitrate (Negative) Urine Bilirubin (NEGATIVE) Urine Urobilinogen (Negative) mg/dL Ur Leukocyte Teresa ase (Negative) Urine RBC (0-2) /hpf Urine WBC (0-5) /hpf Ur Squamous Epith Cells (0-5) Urine Bacteria (NONE) Hyaline Casts Serum Ketones Negative (Negative) 11/03/19 11/03/19 11/03/19 Range/Units 10:30 11:55 12:14 WBC (4.0-10.0) 10^3/ uL RBC (4.1-5.3) 10^6/u L Hgb (11.7-16.6) g/dL Hct (42.0-52.0) % MCV (80-94) fL MCH (28.0-34.0) pg MCHC (30.0-36.0) g/dL RDW (12.1-15.1) % Plt Count (130-400) 10^3/c mm MPV (7.4-10.4) fL Neut % (Auto) % Lymph % (Auto) % [place] % (Auto) % Eos % (Auto) % Baso % (Auto) % Neut # (Auto) (1.8-7.7) 10^3/u L Lymph # (Auto) (0.8-4.8) 10^3/u L [place] # (Auto) (0.2-0.9) 10^3/u L Eos # (Auto) (0.0-0.8) 10^3/u L Baso # (Auto) (0.0-0.1) 10^3/u L Nucleated RBC % (a uto) % Nucleated RBCs # /100WBC PT (10.5-13.3) SECO NDS INR (0.8-1.2) APTT (23.9-36.7) SECO NDS Specimen Type Arterial Sample Site Radial, left ABG pH 7.38 (7.35-7.45) ABG pCO2 49.6 H (35-45) mmHg ABG pO2 93.1 (80.0-100.0) mmH g ABG HCO3 29.4 H (22-26) mmol/L ABG O2 Saturation 97.9 ABG Base Excess 3.5 H (-2.0-2.0) mmol/ L Joseluis Test Pos Hematocrit 33.6 L (42-52) % Hgb O2 Saturation 94.5 L (95-100) % Carboxyhemoglobin 3.3 (0.4-20.1) %THgb Methemoglobin 0.2 L (0.4-1.5) % Total Hemoglobin 11.0 L (14-18) g/dL Ionized Calcium 1.1 (1.1-1.4) mmol/L O2 Delivery Device [place] [employer] Mechanic ID jmn Sodium 142.0 (136-145) mmol/L Potassium 3.3 L (3.5-5.1) mmol/L Chloride (98-107) mmol/L Carbon Dioxide (22-29) mmol/L Anion Gap (5-19) BUN (8-23) mg/dL Creatinine (0.7-1.2) mg/dL GFR Calculation (90-130) mL/min Glucose 102.0 (65-115) mg/dL POC Glucose (70-110) mg/dL Calculated Osmolal ity (285-295) mOsm/k g Lactate (0.5-2.2) mmol/L Calcium (8.5-10.5) mg/dL Total Bilirubin (0.15-1.2) mg/dL AST (0-40) U/L ALT (0-41) U/L Alkaline Phosphata se (40-130) IU/L Creatine Kinase (39-308) U/L Troponin I 6 Hour (0-15) ng/L Troponin I Hi Sens Del (0-12) ng/L Troponin T Baselin e (0-15) ng/L Troponin T 120 Min [place] 33.93 H (0-15) ng/L Delta Troponin T -8.07 L (0-10) ABS# Total Protein (6.6-8.7) g/dL Albumin (3.5-5.2) g/dL Globulin (1.3-4.6) g/dL Lipase (13-60) U/L Procalcitonin (0-0.5) ng/mL Urine Color Yellow (Yellow) Urine Appearance Clear (CLEAR) Urine pH 5 (5-7) Ur Specific Gravit y 1.010 (1.005-1.030) Urine Protein Neg (Negative) Urine Glucose (UA) Norm (Normal) Urine Ketones Negative (Negative) Urine Blood 3+ H (Negative) Urine Nitrate Negative (Negative) Urine Bilirubin Neg (NEGATIVE) Urine Urobilinogen Norm (Negative) mg/dL Ur Leukocyte Teresa ase Negative (Negative) Urine RBC 15-25 H (0-2) /hpf Urine WBC 0-4 H (0-5) /hpf Ur Squamous Epith Cells 0-4 H (0-5) Urine Bacteria 2+ H (NONE) Hyaline Casts 0-4 H Serum Ketones (Negative) 11/03/19 11/03/19 11/03/19 Range/Units 15:59 17:02 22:25 WBC (4.0-10.0) 10^3/ uL RBC (4.1-5.3) 10^6/u L Hgb (11.7-16.6) g/dL Hct (42.0-52.0) % MCV (80-94) fL MCH (28.0-34.0) pg MCHC (30.0-36.0) g/dL RDW (12.1-15.1) % Plt Count (130-400) 10^3/c mm MPV (7.4-10.4) fL Neut % (Auto) % Lymph % (Auto) % [place] % (Auto) % Eos % (Auto) % Baso % (Auto) % Neut # (Auto) (1.8-7.7) 10^3/u L Lymph # (Auto) (0.8-4.8) 10^3/u L [place] # (Auto) (0.2-0.9) 10^3/u L Eos # (Auto) (0.0-0.8) 10^3/u L Baso # (Auto) (0.0-0.1) 10^3/u L Nucleated RBC % (a uto) % Nucleated RBCs # /100WBC PT (10.5-13.3) SECO NDS INR (0.8-1.2) APTT (23.9-36.7) SECO NDS Specimen Type Sample Site ABG pH (7.35-7.45) ABG pCO2 (35-45) mmHg ABG pO2 (80.0-100.0) mmH g ABG HCO3 (22-26) mmol/L ABG O2 Saturation ABG Base Excess (-2.0-2.0) mmol/ L Joseluis Test Hematocrit (42-52) % Hgb O2 Saturation (95-100) % Carboxyhemoglobin (0.4-20.1) %THgb Methemoglobin (0.4-1.5) % Total Hemoglobin (14-18) g/dL Ionized Calcium (1.1-1.4) mmol/L O2 Delivery Device Railroad Mechanic ID Sodium (136-145) mmol/L Potassium (3.5-5.1) mmol/L Chloride (98-107) mmol/L Carbon Dioxide (22-29) mmol/L Anion Gap (5-19) BUN (8-23) mg/dL Creatinine (0.7-1.2) mg/dL GFR Calculation (90-130) mL/min Glucose (65-115) mg/dL POC Glucose 110 141 (70-110) mg/dL Calculated Osmolal ity (285-295) mOsm/k g Lactate (0.5-2.2) mmol/L Calcium (8.5-10.5) mg/dL Total Bilirubin (0.15-1.2) mg/dL AST (0-40) U/L ALT (0-41) U/L Alkaline Phosphata se (40-130) IU/L Creatine Kinase (39-308) U/L Troponin I 6 Hour 36.17 H (0-15) ng/L Troponin I Hi Sens Del -5.83 L (0-12) ng/L Troponin T Baselin e (0-15) ng/L Troponin T 120 Min [place] (0-15) ng/L Delta Troponin T (0-10) ABS# Total Protein (6.6-8.7) g/dL Albumin (3.5-5.2) g/dL Globulin (1.3-4.6) g/dL Lipase (13-60) U/L Procalcitonin (0-0.5) ng/mL Urine Color (Yellow) Urine Appearance (CLEAR) Urine pH (5-7) Ur Specific Gravit y (1.005-1.030) Urine Protein (Negative) Urine Glucose (UA) (Normal) Urine Ketones (Negative) Urine Blood (Negative) Urine Nitrate (Negative) Urine Bilirubin (NEGATIVE) Urine Urobilinogen (Negative) mg/dL Ur Leukocyte Teresa ase (Negative) Urine RBC (0-2) /hpf Urine WBC (0-5) /hpf Ur Squamous Epith Cells (0-5) Urine Bacteria (NONE) Hyaline Casts Serum Ketones (Negative) 11/04/19 11/04/19 Range/Units 04:24 04:24 WBC 10.8 H (4.0-10.0) 10^3/ uL RBC 3.83 L (4.1-5.3) 10^6/u L Hgb 11.8 (11.7-16.6) g/dL Hct 37.2 L (42.0-52.0) % MCV 97.1 H (80-94) fL MCH 30.8 (28.0-34.0) pg MCHC 31.7 (30.0-36.0) g/dL RDW 12.8 (12.1-15.1) % Plt Count 270 (130-400) 10^3/c mm MPV 10.2 (7.4-10.4) fL Neut % (Auto) 64.6 % Lymph % (Auto) 26.1 % [place] % (Auto) 6.9 % Eos % (Auto) 1.6 % Baso % (Auto) 0.4 % Neut # (Auto) 7.0 (1.8-7.7) 10^3/u L Lymph # (Auto) 2.8 (0.8-4.8) 10^3/u L [place] # (Auto) 0.8 (0.2-0.9) 10^3/u L Eos # (Auto) 0.2 (0.0-0.8) 10^3/u L Baso # (Auto) 0.0 (0.0-0.1) 10^3/u L Nucleated RBC % (a uto) 0 % Nucleated RBCs # 0.0 /100WBC PT (10.5-13.3) SECO NDS INR (0.8-1.2) APTT (23.9-36.7) SECO NDS Specimen Type Sample Site ABG pH (7.35-7.45) ABG pCO2 (35-45) mmHg ABG pO2 (80.0-100.0) mmH g ABG HCO3 (22-26) mmol/L ABG O2 Saturation ABG Base Excess (-2.0-2.0) mmol/ L Joseluis Test Hematocrit (42-52) % Hgb O2 Saturation (95-100) % Carboxyhemoglobin (0.4-20.1) %THgb Methemoglobin (0.4-1.5) % Total Hemoglobin (14-18) g/dL Ionized Calcium (1.1-1.4) mmol/L O2 Delivery Device Railroad Mechanic ID Sodium 141 (136-145) mmol/L Potassium 3.6 (3.5-5.1) mmol/L Chloride 98 (98-107) mmol/L Carbon Dioxide 32 H (22-29) mmol/L Anion Gap 14.6 (5-19) BUN 25 H (8-23) mg/dL Creatinine 0.6 L (0.7-1.2) mg/dL GFR Calculation 134.4 H (90-130) mL/min Glucose 107 (65-115) mg/dL POC Glucose (70-110) mg/dL Calculated Osmolal ity 289 (285-295) mOsm/k g Lactate (0.5-2.2) mmol/L Calcium 8.9 (8.5-10.5) mg/dL Total Bilirubin 0.6 (0.15-1.2) mg/dL AST 11 (0-40) U/L ALT 11 (0-41) U/L Alkaline Phosphata se 60 (40-130) IU/L Creatine Kinase (39-308) U/L Troponin I 6 Hour (0-15) ng/L Troponin I Hi Sens Del (0-12) ng/L Troponin T Baselin e (0-15) ng/L Troponin T 120 Min [place] (0-15) ng/L Delta Troponin T (0-10) ABS# Total Protein 6.1 L (6.6-8.7) g/dL Albumin 3.0 L (3.5-5.2) g/dL Globulin 3.1 (1.3-4.6) g/dL Lipase (13-60) U/L Procalcitonin (0-0.5) ng/mL Urine Color (Yellow) Urine Appearance (CLEAR) Urine pH (5-7) Ur Specific Gravit y (1.005-1.030) Urine Protein (Negative) Urine Glucose (UA) (Normal) Urine Ketones (Negative) Urine Blood (Negative) Urine Nitrate (Negative) Urine Bilirubin (NEGATIVE) Urine Urobilinogen (Negative) mg/dL Ur Leukocyte Teresa ase (Negative) Urine RBC (0-2) /hpf Urine WBC (0-5) /hpf Ur Squamous Epith Cells (0-5) Urine Bacteria (NONE) Hyaline Casts Serum Ketones (Negative) Discharge Plan Discharge Patient Disposition: Admitted As Inpatient Admit Provider: Tito Mckeon Clinical Impression: Sepsis, Bullous rash, Cellulitis and abscess of lower extremity, Acute hypotension, Acute dehydration Condition: Stable Referrals: Roberto [Outside] Interventions: ED Discharge Assessment Last Done: 11/03/19 15:23 ED Charges Last Done: 11/03/19 15:23 Discharge Date/Time: 11/03/19 15:24 Coding Level of Care Code ED Associate Media Planner for Jon Fwd Exam Comprehensive
--- NOTE | 2019-11-03 12:12 | ECG_ITS ---
[facility] Test Date: 2019-11-03 Pat Name: Jasper Savage Department: Room: Gender: Male Clinical Audiologist: : 1950 Requested By: Lj Riley Order Number: [id number] Ariana MD: Hailey Holley M.D. Measurements Intervals Cody Rate: 70 P: MI: -1 QRS: 36 QRSD: 91 T: 4 QT: 376 QTc: 406 Interpretive Statements ATRIAL FIBRILLATION ABNORMAL RHYTHM ECG Compared to ECG 10/10/2019 06:40:58 No significant changes Electronically Signed On 11-04-2019 0:10:22 CDT by Hailey Holley M.D. [email or web address]
[2019-11-03 12:41] LABS: Troponin 5 2HR 33.93 ng/L (0-15)
[2019-11-03 12:43] LABS: Add Urine Microscopic? YES; Bilirubin Urine Neg (NEGATIVE); Blood Urine 3+ (Negative); Glucose Urine UA Norm (Normal); Ketones Urine Negative (Negative); Leukocyte Esterase Urine Negative (Negative); Nitrate Urine Negative (Negative); Protein Urine Neg (Negative); Urine Appearance Clear (CLEAR); Urine Color Yellow (Yellow); Urobilinogen Urine Norm (Negative); pH Urine 5 (5-7)
[2019-11-03 12:44] LABS: Add Urine Culture? Yes; Bacteria Urine 2+; Hyaline Casts Urine 0-4; RBC Urine 15-25 /hpf (0-2); Squamous Epithelial Cell Urine 0-4 (0-5); WBC Urine 0-4 /hpf (0-5)
--- NOTE | 2019-11-03 12:48 | USCV_ITS ---
Jasper Savage Age: 69 Gender: M : 1950 Exam Date: 11/03/2019 12:59 Ordering Phys: Lj Morgan DO Technologist: Jack Caballero Exam Location: [facility] [place] Indication: Infection Risk Factors: Previous Vascular Surgery: RIGHT LEFT BP: 115.0 / 76.00 BP: 115.0/ 76.00 0 0 Waveform Velocity (cm/s) Velocity (cm/s) Waveform Monophasic 121.4 Iliac Prox 121.6 Monophasic Monophasic 118.0 Iliac Mid 99.1 Monophasic Monophasic 133.4 Iliac Distal 126.9 Monophasic Monophasic 100.9 INSURANCE SOLICITOR 91.2 Monophasic Monophasic 96.5 SFA Prox 95.2 Monophasic Monophasic 116.3 SFA Mid 134.8 Monophasic Monophasic SFA Dist Monophasic 129.5 136.1 Monophasic 74.0 POP 79.3 Monophasic Monophasic 50.2 PROMOTION OFFICER 51.5 Monophasic Monophasic 62.0 DPA 55.5 Monophasic 1.0 MATT 1.0 FINDINGS RT PROMOTION OFFICER 120, RT DPA 115 LT PROMOTION OFFICER 120, LT DPA 120 Normal resting ABIs bilaterally CONCLUSIONS Normal resting ABIs with abnormal arterial Doppler waveforms, suggestive of nonobstructive arterial disease bilaterally Dr Hailey Holley MD [facility] (Electronically Signed) Final Date: 04 November 2019 13:59 S
[2019-11-03 13:07] LABS: Troponin 5 2HR Delta -8.07 ABS# (0-10)
--- NOTE | 2019-11-03 14:44 | P.HP_ITS ---
Providers/Chief Complaint Admitting Physician: Tito Mckeon MD Primary Care Provider: Sushil Valerio DO Chief Complaint: LOW BP/WEAK/DIZZY History of Present Illness Jasper Savage is a 69 year old male that presents to the emergency department complaining of occasional dizziness for the last week, worsening with weakness and difficulty standing up because of dizziness over the last day or 2. He denies any fevers. He has had no nausea, chest pain. He reports his lower extremity rash is slowly been resolving. In the ER his initial blood pressure was around 60 systolic, and he has been getting large volumes of IV fluids to bring this up. He was recently hospitalized October 09 with a bullous rash, and work-up for autoimmune and infectious causes was negative. Patient reports no new bullous areas of rash have developed in quite some time. He recently had Lasix added to his regimen 1-2 weeks ago. Review of Systems General: Reports: 10 or more systems reviewed and unremarkable except in HPI and below Const: Denies: fever(s) or chills Eyes: Denies: change in vision ENMT: Denies: throat pain Card: Reports: lightheadedness; Denies: chest pain Resp: Denies: dyspnea GI: Denies: abdominal pain : Denies: flank pain Musc: Denies: neck pain Neuro: Denies: headache(s) Psych: Denies: anxiety Endo: Denies: polyuria Arnol/Lymph: Denies: easy bruising All/Imm: Reports: other (Rash lower extremities is improving) Medications/Allergies Home Medications Medication Instructions Recorded Confirmed Last Taken Type atorvastatin 20 mg PO DAILY 10/11/19 11/03/19 11/03/19 History carvedilol 6.25 mg PO BID 10/11/19 11/03/19 11/03/19 History citalopram 10 mg PO DAILY 10/11/19 11/03/19 11/03/19 History diltiazem HCl 90 mg PO DAILY 10/11/19 11/03/19 11/03/19 History hydrochlorothiazide 12.5 mg PO DAILY 10/11/19 11/03/19 11/03/19 History lisinopril 40 mg PO DAILY 10/11/19 11/03/19 11/03/19 History metformin 1,000 mg PO BID 10/11/19 11/03/19 11/03/19 History montelukast 10 mg PO DAILY PRN 10/11/19 11/03/19 11/03/19 History trazodone 100 mg PO BEDTIME 10/11/19 11/03/19 11/02/19 History aspirin 81 mg PO DAILY 11/03/19 11/03/19 11/02/19 History furosemide [Lasix] 40 mg PO DAILY 11/03/19 11/03/19 11/03/19 History gabapentin 300 mg PO TID 11/03/19 11/03/19 11/03/19 History tramadol 50 mg PO BID PRN 11/03/19 11/03/19 11/03/19 History Allergies Allergy/AdvReac Type Severity Reaction Status Date / Time No Known Allergies Allergy Verified 11/03/19 10:03 PFSH Acute PFSH: Medical History Anxiety CAD (coronary atherosclerotic disease) COPD (chronic obstructive pulmonary disease) Depression DM type 2 (diabetes mellitus, type 2) GERD (gastroesophageal reflux disease) Hypertension Ischemic cardiomyopathy EF 45% Obstructive sleep apnea Unable to tolerate CPAP Surgical History H/O cardiac catheterization Stent 1998 H/O foot surgery History of carpal tunnel surgery Hx of tonsillectomy Family History Other CAD (coronary artery disease) Social History (Updated 11/03/19 @ 14:48 by Tito Mckeon MD) Smoking and tobacco status: current every day smoker cigarettes [ Other cigarette details: 1 pack/day since young ] Alcohol intake: former Substance/Drug Use: never Household members: spouse and family Housing: House Vitals/I&O/Wt Last Vital Signs Temp 97.3 F L 11/03/19 10:00 Pulse 74 11/03/19 12:50 Resp 15 11/03/19 12:50 BP 106/72 11/03/19 12:50 Pulse Ox 97 11/03/19 12:50 11/02/19 11/03/19 11/03/19 22:59 06:59 14:59 Output Total 900 / 900 Balance -900 / -900 Weight last 48 hrs Weight 112.037 kg Physical Exam Narrative: EXAM NARRATIVE: General exam demonstrates a white male, in no apparent distress HEENT: Pupils equally round. Oropharynx clear. Neck is supple no lymphadenopathy or thyromegaly Cardiovascular regular rate and rhythm without murmur, no S3 or S4 Lungs clear no wheezing or crackles Abdomen is soft, positive bowel sounds, obese Extremities no cyanosis clubbing or edema. Multiple black eschars from previous bullous rash. Data : 11/03/19 10:00 11/03/19 10:00 Micro: Microbiology 11/03/19 10:00 Blood Culture - Preliminary Blood SPECIMEN COLLECTED 11/03/19 10:05 Blood Culture - Preliminary Blood SPECIMEN COLLECTED Other data: ABG 7.38, 49.6, 93. LFTs normal. Troponin 42, with repeat 34 at 120 minutes. Urinalysis demonstrates a few red blood cells A&P Assessment and plan (1) Hypotension: Improved after multiple boluses given in the ER. I suspect this may be secondary to multiple medications use for blood pressure, atrial fibrillation, edema. I suppose this could be secondary to infection but I believe this is less likely. Check procalcitonin Vancomycin given in the emergency department. If procalcitonin negative consider holding further vancomycin, close monitoring. Will start Rocephin for probable UTI. Status: Acute (2) Leukocytosis: Cannot rule out bacteremia but thought less likely. For now continue vancomycin, Zosyn Status: Acute (3) Elevated troponin: No chest pain, or concerning EKG changes. Type II elevation Status: Acute (4) UTI (urinary tract infection): Zosyn. Urine culture Status: Acute (5) Bullous rash: This appears to be resolving. He has had no new lesions in quite some time. Doubt pathological biopsy is in order but certainly will need dermatology follow-up as an outpatient. Check arterial duplex Status: Acute Additional A&P Information Atrial fibrillation. At this point controlled. History of hypertension Type 2 diabetes. Sliding scale insulin Hyperlipidemia Coronary artery disease Tobacco dependency GERD History of obstructive sleep apnea Anxiety/depression History of COPD, no evidence of exacerbation Full code Lovenox for DVT prophylaxis Attestations Medical Necessity Statement*: Potentially will need less than 2 midnight stay if hypotension is related to hypertensive medication. Time Spent in Patient Care: Greater than 35 minutes Coding Level of Care Code Acute Finishing Powder Press Operator for g Fwsarah beth Diagnoses Hypotension I95.9 Leukocytosis D72.829 Elevated troponin R79.89 UTI (urinary tract infection) N39.0 Bullous rash R21
[2019-11-03] MEDS: cefTRIAXone 1,000 MG in sodium chloride 0.9% (plus) 50 ML 100 MG IV (16:40)
[2019-11-03] MEDS: lactated ringers 1,000 ML 100 ML IV (16:41)
[2019-11-03] MEDS: enoxaparin 40 mg/0.4 mL Syringe SUBCUT (16:41)
[2019-11-03] MEDS: acetaminophen 325 mg Tablet 650 MG PO (16:42)
[2019-11-03 16:45] LABS: Troponin 5 6HR 36.17 ng/L (0-15)
[2019-11-03 16:52] LABS: Troponin 5 6HR Delta -5.83 ng/L (0-12)
[2019-11-03 17:08] LABS: Glucose Point of Care 110 mg/dL (70-110)
[2019-11-03] MEDS: gabapentin 100 mg Capsule PO (21:28)
[2019-11-03 22:28] LABS: Glucose Point of Care 141 mg/dL (70-110)
[2019-11-04] VITALS (13 sets, daily range): BP systolic 93–144; BP diastolic 60–82; PULSE 73–117; RESP 9–20; TEMP 36.5–37.1; O2SAT 93–99
[2019-11-04] MEDS: TRAMadol 50 mg Tablet PO ×3 (01:00→21:22)
[2019-11-04] MEDS: lactated ringers 1,000 ML 100 ML IV (04:48)
[2019-11-04 04:57] LABS: Basophils % 0.4 %; Eosinophils # 0.2 10^3/uL (0.0-0.8); Eosinophils % 1.6 %; Hematocrit 37.2 % (42.0-52.0); Hemoglobin 11.8 g/dL (11.7-16.6); Lymphocytes # 2.8 10^3/uL (0.8-4.8); Lymphocytes % 26.1 %; Mean Corpuscular HGB Conc 31.7 g/dL (30.0-36.0); Mean Corpuscular Hemoglobin 30.8 pg (28.0-34.0); Mean Corpuscular Volume 97.1 fL (80-94); Mean Platelet Volume 10.2 fL (7.4-10.4); Monocytes # 0.8 10^3/uL (0.2-0.9); Monocytes % 6.9 %; Neutrophils % 64.6 %; Nucleated Red Blood Cells % 0 %; Platelet Count 270 10^3/cmm (130-400); Red Blood Count 3.83 10^6/uL (4.1-5.3); Red Cell Distribution Width 12.8 % (12.1-15.1); White Blood Count 10.8 10^3/uL (4.0-10.0)
--- NOTE | 2019-11-04 05:25 | PC.NURSE ---
SHIFT SUMMARY PT HAS REMAINED ALERT AND ORIENTATED. PT IS ABLE TO USE URINAL. PT HAS NOT COMPLAINED OF ANY DIZZINESS. PT COMPLAINED OF PAIN AND WAS GIVEN PAIN MED. PT HAD HAD ADEQUATE URINE OUTPUT. PT IV REMAINS PATENT. PT HAS BEEN AFEBRILE.
[2019-11-04 05:32] LABS: Alanine Aminotransferase 11 U/L (0-41); Alkaline Phosphatase 60 IU/L (40-130); Anion Gap 14.6 (5-19); Aspartate Amino Transferase 11 U/L (0-40); Blood Urea Nitrogen 25 mg/dL (8-23); Calcium 8.9 mg/dL (8.5-10.5); Carbon Dioxide 32 mmol/L (22-29); Chloride 98 mmol/L (98-107); Globulin 3.1 g/dL (1.3-4.6); Glomerular Filtration Rate 134.4 mL/min (90-130); Glucose 107 mg/dL (65-115); Osmolality Calculated 289 mOsm/kg (285-295); Potassium 3.6 mmol/L (3.5-5.1); Sodium 141 mmol/L (136-145); Total Bilirubin 0.6 mg/dL (0.15-1.2); Total Protein 6.1 g/dL (6.6-8.7)
--- NOTE | 2019-11-04 07:35 | P.PN_ITS ---
Subjective Subjective: Interval history: Jasper reports he feels fine. Denies dizziness this morning. No chest pain. Medications: Reviewed: Yes Vitals/I&O/Wt Last Vital Signs Temp 97.7 F 11/04/19 04:20 Pulse 95 11/04/19 06:04 Resp 17 11/04/19 06:04 BP 116/69 11/04/19 06:04 Pulse Ox 93 11/04/19 06:04 11/03/19 11/04/19 11/04/19 22:59 06:59 14:59 Intake Total 360 / 360 1000 / 1360 Output Total 500 / 1400 1250 / 2650 Balance -140 / -1040 -250 / -1290 Weight last 48 hrs Weight 112.037 kg Physical Exam Narrative: EXAM NARRATIVE: General exam demonstrates a white male, in no apparent distress Cardiovascular irregular irregular without murmur. Heart rate 100-1 10 Lungs clear no wheezing or crackles Abdomen is soft, positive bowel sounds, obese Extremities no cyanosis clubbing or edema. Multiple black eschars from previous bullous rash. No significant erythema Data : 11/04/19 04:24 11/04/19 04:24 Micro: Microbiology 11/03/19 10:00 Blood Culture - Preliminary Blood SPECIMEN COLLECTED 11/03/19 10:05 Blood Culture - Preliminary Blood SPECIMEN COLLECTED A&P Assessment and plan (1) Hypotension: Improved after multiple boluses given in the ER. I suspect this may be secondary to multiple medications use for blood pressure, atrial fibrillation, edema. I suppose this could be secondary to infection but I believe this is less likely. Procalcitonin was checked and negative. Broad-spectrum antibiotics were discontinued after this was evaluated as well as clinical exam. Rocephin initiated for possible UTI Status: Acute (2) Leukocytosis: Cannot rule out bacteremia but thought less likely. White blood cell count markedly improved Status: Acute (3) Elevated troponin: No chest pain, or concerning EKG changes. Type II elevation Status: Acute (4) UTI (urinary tract infection): Zosyn. Urine culture Status: Acute (5) Bullous rash: This appears to be resolving. He has had no new lesions in quite some time. Doubt pathological biopsy is in order but certainly will need dermatology follow-up as an outpatient. Arterial duplex pending Status: Acute Additional A&P Information Atrial fibrillation. Reinitiate carvedilol. His heart rate is climbing. History of hypertension Type 2 diabetes. Sliding scale insulin Hyperlipidemia Coronary artery disease Tobacco dependency. Discussed cessation 3 to 5 minutes GERD History of obstructive sleep apnea Anxiety/depression History of COPD, no evidence of exacerbation Full code Lovenox for DVT prophylaxis Transfer out of ICU Attestations Medical Necessity Statement*: Needs continued hospitalization for close monitoring now secondary to need for reinitiation of medications for atrial fibrillation and climbing heart rate with high likelihood of atrial fibrillation with rapid ventricular rate throughout today. Secondary to this reason we will convert to regular admission. Coding Level of Care Code Acute Operator Cavity Pump for Chg Fwd Diagnoses Hypotension I95.9 Leukocytosis D72.829 Elevated troponin R79.89 UTI (urinary tract infection) N39.0 Bullous rash R21
[2019-11-04] MEDS: citalopram 20 mg Tablet 10 MG PO (08:05)
[2019-11-04] MEDS: aspirin 81 mg Chew Tablet PO (08:05)
[2019-11-04] MEDS: gabapentin 100 mg Capsule PO ×3 (08:05→19:49)
[2019-11-04] MEDS: carvedilol 6.25 mg Tablet PO ×2 (08:05→18:13)
[2019-11-04] MEDS: atorvastatin 40 mg Tablet 20 MG PO (08:05)
--- NOTE | 2019-11-04 13:37 | PC.NURSE ---
FROM ICU Received pt from ICU with rn Dorita and Louise. Introduce myself to pt. Per ICU nurses pt is requesting for breathing treatment and pain medicine. Pt looked anxious. Lungs sounds diminished. spO2 is 94% on room air. Per DISABILITY MANAGER pt takes 2 L at night. Call light within reach. Instructed pt with TV remote control. Noted dried rashes, pustules on bilateral legs and foot. Tender to the touch. DP pulses are palpable +3. Will monitor.
--- NOTE | 2019-11-04 14:51 | PC.RESP ---
Smoking Cessation and Pulmonary Rehab information to patient along with a schedule of classes.
--- NOTE | 2019-11-04 15:24 | PC.NURSE ---
Home med rec Pt reported he takes breathing treatments at home. He reported using Albuterol inhaler and nebulization. When asked about the dosing and how often he uses it, he replied I don't know. But it said in the box 4x a day. External med history from [facility] pharmacy showed Albuterol inhaler 90 mcg and Albuterol sul 2.5 mg/3 ml soln 4x a day. Dr. Mckeon notified. Received order via secure messaging to order duoneb prn. Will also update home med rec and add this meds.
[2019-11-04] MEDS: cefTRIAXone 1,000 MG in sodium chloride 0.9% (plus) 50 ML 100 MG IV (16:03)
[2019-11-04] MEDS: enoxaparin 40 mg/0.4 mL Syringe SUBCUT (16:03)
--- NOTE | 2019-11-04 16:15 | PC.NURSE ---
SOB/ HR- 130s to 140s AFIB Called in to room via pt's call light. Pt is sitting on the side of the bed. Pt looked anxious and restless. He verbalizes, I just can't breath. Noted episode of afib with RVR briefly on the heart monitor ranging from 130s to 140s. Lungs were diminished. BP-144/80. spO2- 94%-95% on room air. Reassured pt and applied oxygen 2 L/min for comfort. RT informed of pt's request for a breathing treatment. HR-100s to 115[address] Afib. Dr Mckeon notified of the pt's status. He will put orders.
[2019-11-04 17:07] LABS: Glucose Point of Care 133 mg/dL (70-110)
[2019-11-04] MEDS: ipratropium-albuterol 3 mL Neb INHALATION (17:59)
[2019-11-04] MEDS: dilTIAZem 30 mg Tablet PO ×2 (18:13→23:31)
[2019-11-04 19:48] LABS: Glucose Point of Care 106 mg/dL (70-110)
[2019-11-04] MEDS: trazodone 100 mg Tablet PO (19:49)
--- NOTE | 2019-11-04 19:54 | PC.NURSE ---
Received bedside report from JAVIER Messina. Patient resting and watching tv. Assessment completed as documented . HS medications given early as requested by patient. No insulin required.
[2019-11-04] MEDS: LORazepam 0.5 mg Tablet 0.25 MG PO (21:14)
[2019-11-05] VITALS (9 sets, daily range): BP systolic 108–135; BP diastolic 72–75; PULSE 83–104; RESP 17–21; TEMP 36.4–36.9; O2SAT 87–98
[2019-11-05] MEDS: ipratropium-albuterol 3 mL Neb INHALATION ×2 (03:50→09:50)
[2019-11-05] MEDS: TRAMadol 50 mg Tablet PO (05:34)
[2019-11-05 06:30] LABS: Glucose Point of Care 112 mg/dL (70-110)
[2019-11-05] MEDS: atorvastatin 40 mg Tablet 20 MG PO (09:04)
[2019-11-05] MEDS: aspirin 81 mg Chew Tablet PO (09:05)
[2019-11-05] MEDS: citalopram 20 mg Tablet 10 MG PO (09:05)
[2019-11-05] MEDS: gabapentin 100 mg Capsule PO (09:05)
[2019-11-05] MEDS: dilTIAZem ER (24HR) 120 mg Capsule PO (09:06)
[2019-11-05] MEDS: carvedilol 6.25 mg Tablet PO (09:06)
--- NOTE | 2019-11-05 10:30 | PC.CHAP ---
Pastoral Care Encounter/Spiritual Assessment Type of Contact [x] Declined commutator undercutter visit [] Patient/Family/Request visit [] Outpatient visit [] Follow-up visit [] Physician referral [] Code/Alert [] Routine visit [] Staff referral [] Actively dying [] Patient sleeping [] Family support [] [] Out of room [] Palliative care [] [] Receiving care in room [] Pre-surgical visit [] Trauma [] Long length of stay [] ICU visit [] Other: Relational/Emotional Strength [] Patient feels connected with others/family/visitors/staff [] Distress [] Loneliness/isolation [] Abandonment Spirituality of Patient [] Person of Jeanne [] Attends Buddhist of their Jeanne [] Believes in Prayer [] Reads Bible or Tenriism materials [] There are Spiritual issues to be addressed Family Development Specialist Interventions [] Prayer [] Active listening [] Non-anxious presence [] Spiritual/emotional support [] Crisis/trauma care [] Spiritual counseling [] Bereavement support [] Provided bereavement packet [] Provided Bible/devotional materials [] Provided toy/stuffed animal, coloring book to patient or family member [] Provided Communion [] Anointing/[place] [] Salvation [] Completed spiritual assessment [] Other: Impact on Illness or Injury [] Angry [] Fearful [] Anxious [] Often cries [] Exhaustion [] Unable to work [] Unable to attend quaker [] Unable to walk/stand [] Unable to read [] Unable to drive [] Unable to eat/drink [] Unable to sleep [] Unable to be with family [] Patient intubated [] Other: Summary Time spent with patient
--- NOTE | 2019-11-05 11:03 | PM.DCS ---
Discharge Providers Date of Admission: 11/04/19 07:45 Date of Discharge: November 05, 2019 Attending Provider at Admission: Tito Mckeon MD Attending Provider at Discharge: Tito Mckeon MD Primary Care Provider: Sushil Valerio DO Diagnoses at Discharge Discharge Diagnosis (1) Hypotension: Status: Acute Problem details: Resolved. Appears to be secondary to medication (2) Leukocytosis: Status: Acute Problem details: Resolving (3) Elevated troponin: Status: Acute (4) UTI (urinary tract infection): Status: Acute Problem details: Final urine culture negative (5) Bullous rash: Status: Acute Reason for Visit Reason for Visit: LOW BP/WEAK/DIZZY Hospital Course Hospital Course: Jasper is a 69-year-old white male who presented to the hospital with severely low blood pressure, dizziness, worsening over the last week. His white blood cell count was elevated. There initially was concern of sepsis by the emergency department and a dose of antibiotics were given. After further evaluation, review of medication list, it was determined this was likely a medication effect. All of his antihypertensives and diuretics were held. He was rehydrated. Following this he did well. There was concern of UTI but urine did not culture any bacteria. By time of discharge his blood pressure was 135/72. After reinitiation of beta-garima and Cardizem his heart rate was 100 resting and he was able to get around the room without dizziness. It was thought he could be discharged home. Low-dose Lasix was restarted with his other medications and he will follow-up with his primary care provider 3 to 5 days with a BMP. Dermatology follow-up will be arranged, as rash he had previously is suspicious for a bullous dermatologic disease. Physical Exam Narrative: EXAM NARRATIVE: General exam no apparent distress Cardiovascular irregular, irregular Lungs clear but with diminished breath sounds at the bases Abdomen is soft with positive bowel sounds Extremities no cyanosis clubbing or edema. Rash unchanged. No erythema to suggest cellulitis. Discharge Data Data Completed and Pending: Completed Studies During Hospitalization Category Date Time Status XR chest 1V jose ble [id number] Stat Exams 11/03/19 10:11 [place] [id number] Urge nt Ultrasound 11/03/19 12:48 [place] [id number] Urgent Ultrasound 11/03/19 11:17 Completed Pending at discharge Category Date Time Status Blood Culture Sta t Lab 11/03/19 10:00 Results Labs from last 24 hours 11/05/19 11/04/19 11/04/19 06:26 19:44 16:32 POC Glucose 112 106 133 Vitals: Last Vital Signs Temp 98.5 F 11/05/19 07:44 Pulse 102 H 11/05/19 09:56 Resp 17 11/05/19 09:50 BP 135/72 11/05/19 07:44 Pulse Ox 92 11/05/19 09:50 Discharge Plan Discharge Patient Disposition: Home, Self-Care Condition: Stable Prescriptions: New diltiazem HCl [Cardizem CD] 180 mg capsule,extended release 24hr 180 mg PO DAILY Qty: 30 RF: 0 furosemide [Lasix] 20 mg tablet 20 mg PO QAM Qty: 30 RF: 0 Continued gabapentin 300 mg capsule 300 mg PO TID RF: 0 tramadol 50 mg Tablet 50 mg PO BID PRN (Reason: Pain) RF: 0 aspirin 81 mg Tablet,Chewable 81 mg PO DAILY RF: 0 albuterol sulfate 2.5 mg /3 mL (0.083 %) Solution For Nebulization 2.5 mg INHALATION Q4H PRN (Reason: Shortness Of Breath) RF: 0 citalopram 10 mg Tablet 10 mg PO DAILY RF: 0 metformin 1,000 mg tablet 1,000 mg PO BID RF: 0 carvedilol 6.25 mg tablet 6.25 mg PO BID RF: 0 atorvastatin 20 mg tablet 20 mg PO DAILY RF: 0 trazodone 100 mg tablet 100 mg PO BEDTIME RF: 0 montelukast 10 mg tablet 10 mg PO DAILY PRN (Reason: Allergy Symptoms) RF: 0 Discontinued Lasix 40 mg Tablet 40 mg PO DAILY RF: 0 diltiazem HCl 90 mg Tablet 90 mg PO BID RF: 0 hydrochlorothiazide 12.5 mg capsule 12.5 mg PO DAILY RF: 0 lisinopril 40 mg tablet 40 mg PO DAILY RF: 0 Discharge Orders: Discharge Order (Routine); Ordered 11/05/19 Ordered By: Tito Mckeon Referrals: [facility] [place] [Outside] [facility] [place] [facility] ([facility]) [Outside] Sushil Valerio DO [Primary Care Provider] - 4-7 days Discharge Diet: Cardiac Discharge Activity: Increase activity as tolerated Activity Restrictions/Additional Instructions: Arrange for dermatology follow-up on discharge regarding lower extremity rash Home oxygen evaluation prior to discharge. No smoking. Discharge Attestations Time Spent in Discharge Care*: greater than 30 min Quality Metrics Clinical Quality Measures During this hospital stay, did patient experience: None Coding Level of Care Code Acute Order Processing Specialist for Chg Fwd Diagnoses Hypotension I95.9 Leukocytosis D72.829 Elevated troponin R79.89 UTI (urinary tract infection) N39.0 Bullous rash R21
[2019-11-05 11:37] LABS: Glucose Point of Care 153 mg/dL (70-110)
== END 2019-11-05 14:29 | disposition home or self-care (01) ==
LOC: ER 10:32 → ICU 17:34 → CSU 11-05 10:55
PROVIDERS: Admitting Provider Internal Medicine; Emergency Provider Family Medicine; PCP Internal Medicine; Visit Provider Internal Medicine
DX: I95.9 Hypotension, unspecified (principal); D72.829 Elevated white blood cell count, unspecified; R79.89 Other specified abnormal findings of blood chemistry; N39.0 Urinary tract infection, site not specified; R21 Rash and other nonspecific skin eruption; R60.0 Localized edema; I48.91 Unspecified atrial fibrillation; E11.9 Type 2 diabetes mellitus without complications; Z79.84 Long term (current) use of oral hypoglycemic drugs; E78.5 Hyperlipidemia, unspecified; F17.210 Nicotine dependence, cigarettes, uncomplicated; I25.10 Atherosclerotic heart disease of native coronary artery without angina pectoris; K21.9 Gastro-esophageal reflux disease without esophagitis; G47.33 Obstructive sleep apnea (adult) (pediatric); J44.9 Chronic obstructive pulmonary disease, unspecified; I10 Essential (primary) hypertension; F41.9 Anxiety disorder, unspecified; F32.9 Major depressive disorder, single episode, unspecified; Z95.5 Presence of coronary angioplasty implant and graft; Z82.49 Family history of ischemic heart disease and other diseases of the circulatory system
CPT/HCPCS: 12345; 36415; 36416; 36600; 71045; 80051; 80053; 81001; 82009; 82550; 82810; 82962; 83605; 83690; 83986; 84145; 84484; 85025; 85610; 85730; 87040; 87086; 93005; 93925; 93970; 94640; 96361; 96365; 96372; 99284; G0378; J0696; J1650; J3370; J3490; J7030; J7050

== ENCOUNTER → 2019-11-30 15:24 | Outpatient (BNVA) | payer MEDICARE, SELFPAY | PROVIDERS: PCP Internal Medicine; Visit Provider Dermatology | DX: L13.9 Bullous disorder, unspecified (principal); D48.9 Neoplasm of uncertain behavior, unspecified; F17.210 Nicotine dependence, cigarettes, uncomplicated | CPT/HCPCS: 11104; 11105; 88305; 88312; 99203; 99204 ==

== ENCOUNTER → 2019-12-01 12:09 | Outpatient (BNVA) | payer MEDICARE, SELFPAY | PROVIDERS: PCP Internal Medicine; Visit Provider Dermatology | DX: D48.9 Neoplasm of uncertain behavior, unspecified (principal) | CPT/HCPCS: 88305 ==

== ENCOUNTER 2019-12-11 12:09 | Outpatient (CLI) | payer MEDICARE, SELFPAY ==
[2019-12-11 12:36] LABS: Anion Gap 9.4 (5-19); Blood Urea Nitrogen 14 mg/dL (8-23); Calcium 8.8 mg/dL (8.5-10.5); Carbon Dioxide 40 mmol/L (22-29); Chloride 95 mmol/L (98-107); Glomerular Filtration Rate 112.5 mL/min (90-130); Glucose 121 mg/dL (65-115); Osmolality Calculated 287 mOsm/kg (285-295); Potassium 4.4 mmol/L (3.5-5.1); Sodium 140 mmol/L (136-145)
== END 2019-12-11 12:10 | disposition home or self-care (01) ==
PROVIDERS: PCP Internal Medicine; Visit Provider Nurse Practitioner Family
DX: J44.9 Chronic obstructive pulmonary disease, unspecified (principal); I10 Essential (primary) hypertension; E11.9 Type 2 diabetes mellitus without complications
CPT/HCPCS: 80048

== ENCOUNTER 2019-12-14 08:11 | Outpatient (CLI) | payer MEDICARE, SELFPAY | END 2019-12-14 08:12 | disposition home or self-care (01) | LOC: WOUND 08:14 | PROVIDERS: PCP Internal Medicine; Visit Provider Nurse Practitioner Family | DX: E11.621 Type 2 diabetes mellitus with foot ulcer (principal); L97.519 Non-pressure chronic ulcer of other part of right foot with unspecified severity | CPT/HCPCS: G0463; L3260 ==

== ENCOUNTER → 2019-12-15 08:38 | Outpatient (BNVA) | payer MEDICARE, SELFPAY | PROVIDERS: Family Provider Internal Medicine; PCP Internal Medicine; Visit Provider Dermatology | DX: E11.628 Type 2 diabetes mellitus with other skin complications (principal); F17.210 Nicotine dependence, cigarettes, uncomplicated; B35.3 Tinea pedis | CPT/HCPCS: 99203; 99213 ==

== ENCOUNTER 2019-12-28 09:03 | Outpatient (CLI) | payer MEDICARE, SELFPAY | END 2019-12-28 09:04 | disposition home or self-care (01) | LOC: WOUND 09:05 | PROVIDERS: Family Provider Internal Medicine; PCP Internal Medicine; Visit Provider Nurse Practitioner Family | DX: E11.621 Type 2 diabetes mellitus with foot ulcer (principal); L97.512 Non-pressure chronic ulcer of other part of right foot with fat layer exposed | CPT/HCPCS: 11042; 87070; 87205 ==

== ENCOUNTER → 2019-12-29 09:03 | Outpatient (BNVA) | payer MEDICARE, SELFPAY | PROVIDERS: Family Provider Internal Medicine; PCP Internal Medicine; Visit Provider Dermatology | DX: E11.628 Type 2 diabetes mellitus with other skin complications (principal); B35.3 Tinea pedis; F17.210 Nicotine dependence, cigarettes, uncomplicated; E11.621 Type 2 diabetes mellitus with foot ulcer | CPT/HCPCS: 11042; 99213 ==

== ENCOUNTER → 2023-03-22 09:15 | Outpatient (BNVA) | payer MEDICARE, SELFPAY | PROVIDERS: PCP Internal Medicine; Visit Provider Podiatrist Foot & Ankle Surgery | DX: L60.3 Nail dystrophy (principal); I73.9 Peripheral vascular disease, unspecified; G62.9 Polyneuropathy, unspecified; E11.42 Type 2 diabetes mellitus with diabetic polyneuropathy; Z79.84 Long term (current) use of oral hypoglycemic drugs | CPT/HCPCS: 11721; 99203 ==

== ENCOUNTER 2023-03-26 15:41 | Emergency (ER) | payer MEDICARE, SELFPAY ==
[2023-03-26 15:49] VITALS: BP 120/72; PULSE 91; RESP 20; TEMP 36.4; O2SAT 87; BMI 32.7
--- NOTE | 2023-03-26 15:52 | ECG_ITS ---
[facility] Test Date: 2023-03-26 Pat Name: Jasper Savage Department: Room: Gender: Male Radio Script Writer: : 1950 Requested By: Mo Paredes Order Number: [id number] Ariana MD: Hailey Holley M.D. Measurements Intervals [place]ole Rate: 98 P: 0 NE: 0 QRS: 42 QRSD: 109 T: 44 QT: 375 QTc: 480 Interpretive Statements ATRIAL FIBRILLATION NONSPECIFIC T-WAVE ABNORMALITY ABNORMAL RHYTHM ECG Compared to ECG 11/03/2019 12:28:02 T-wave abnormality now present Electronically Signed On 03-26-2023 23:19:54 CLASSIFICATION CASE MANAGER by Hailey Holley M.D. [id number]
--- NOTE | 2023-03-26 16:01 | XRR_ITS ---
PROCEDURE INFORMATION: Exam: XR Chest Exam date and time: 03/26/2023 4:05 PM Age: 72 years old Clinical indication: Pain; Chest pressure; Additional info: Chest pain TECHNIQUE: Imaging protocol: Radiologic exam of the chest. Views: 1 view. COMPARISON: CR XR chest 2V* [id number] 03/15/2023 9:09 AM FINDINGS: Lungs: No consolidation. Pleural spaces: No pleural effusion. No pneumothorax. Heart/Mediastinum: No cardiomegaly. Bones/joints: No acute findings. XR/XR chest 1V portable [id number] IMPRESSION: No acute findings.
--- NOTE | 2023-03-26 16:21 | W.ED.SOB ---
HPI - SOB/Dyspnea General: Chief Complaint: Shortness of Breath/Dyspnea Stated Complaint: CP Time Seen by Provider: 03/26/23 16:01 History of Present Illness: HPI Narrative: Patient presents to the ER with complaints of worsening shortness of breath and intermittent middle chest pain with paroxysmal A-fib. Patient was diagnosed with A-fib approximately 6 weeks ago. At that time he stopped smoking and drinking. Patient's A-fib has been getting more frequent and lasting longer and this also causes his chest pain and shortness of breath. Patient was started on apixaban and pick it up approximately 03/15. Patient has a history of COPD and is normally on 2 L of oxygen. Review of Systems General: Reports: 10 or more systems reviewed and unremarkable except in HPI and below PFSH ED PFSH: Medical History (Updated 03/26/23 @ 21:57 by Mo Paredes DO) Anxiety CAD (coronary atherosclerotic disease) COPD (chronic obstructive pulmonary disease) Depression DM type 2 (diabetes mellitus, type 2) GERD (gastroesophageal reflux disease) Hypertension Ischemic cardiomyopathy EF 45% Obstructive sleep apnea Unable to tolerate CPAP Surgical History H/O cardiac catheterization Stent 1998 H/O foot surgery History of carpal tunnel surgery Hx of tonsillectomy Family History Other CAD (coronary artery disease) Diabetes Hypertension Denies family history of Cancer Social History Smoking and tobacco/nicotine status: current every day tobacco/nicotine user cigarettes Packs smoked per day: 1 [ Other cigarette details: 1 pack/day since young] Alcohol intake: current Alcohol intake frequency: few times a week Substance/Drug Use: never Household members: spouse and family Housing: House Physical Exam Const: COMMON NORMALS: no acute distress, average body habitus, patient oriented x3, no limitations, healthy appearing, alert and well nourished HENMT: COMMON NORMALS: normocephalic, atraumatic, hearing grossly normal bilaterally, external ears normal, Normal external nose present, moist oral mucous membranes and oropharynx normal HEAD & SCALP: normocephalic and atraumatic NOSE: Normal external nose present EXTERNAL EAR: Yes external ears normal Neck/C-Spine: COMMON NORMALS: full ROM, no lymphadenopathy, supple, no meningeal signs, no JVD and Thyroid normal THYROID: Thyroid normal Chest: COMMONS NORMALS: normal inspection of the chest and normal palpation of entire chest wall Resp: COMMON NORMALS: normal respiratory effort, No retractions, No use of accessory muscles and clear to auscultation bilaterally AUSCULTATION: clear to auscultation bilaterally Cardio: COMMON NORMALS: no JVD, regular rate, S1 normal heart sound present, S2 normal heart sound present, No gallops present (Cardio), No clicks present (Cardio), No murmurs present (Cardio) and No rub (Cardio); negative for regular rhythm (Irregularly irregular) RATE: regular rate RHYTHM: abnormal rhythm (Irregularly irregular) HEART SOUNDS: S1 normal heart sound present and S2 normal heart sound present GI: COMMON NORMALS: Normal to inspection, nondistended, normoactive bowel sounds present, Soft to palpation, non-tender, No hepatosplenomegaly present and no masses PALPATION: Yes Soft to palpation and Yes No hepatosplenomegaly present Neuro: COMMON NORMALS: patient oriented x3 SENSORIUM/ORIENTATION: Yes alert MENINGEAL SIGNS: Yes no meningeal signs Course Vital Signs: Vital signs: Vital Signs Temperature 97.5 F L 03/26/23 15:49 Pulse Rate 86 03/26/23 21:45 Respiratory Rate 20 H 03/26/23 15:49 Blood Pressure 150/90 03/26/23 21:45 Pulse Oximetry 96 03/26/23 21:45 Oxygen Delivery Me thod Room Air 03/26/23 21:45 MDM - SOB/Dyspnea Medical Decision Making Patient comes with intermittent chest pain and worsening shortness of breath. Patient's oxygen saturation was 87% on room air but patient normally wears 2 L of oxygen. Patient was worked up in a standard chest pain fashion. Lab work shows no acute signs of cardiac chest pain. Chest x-ray was negative. Patient be discharged home to follow-up with his PCP for further evaluation and treatment. Differential Diagnosis Unlikely acute exacerbation of chronic obstructive airways disease, congestive heart failure, community acquired pneumonia, asthma with exacerbation or pulmonary embolism Medical Records I reviewed the patient's medical records. Lab Data I reviewed the patient's lab results. 03/26/23 16:16 03/26/23 16:16 Labs/Radiology: Radiology Impressions Chest X-Ray 03/26/23 16:01 IMPRESSION: No acute findings. Laboratory Results WBC 9.14 10^3/uL (3.29-11.43) 03/26/23 16:16 RBC 3.42 10^6/uL (3.85-5.65) L 03/26/23 16:16 Hgb 11.60 g/dL (11.27-16.99) 03/26/23 16:16 Hct 36.4 % (37-53) L 03/26/23 16:16 MCV 106.4 fl (82-101) H 03/26/23 16:16 MCH 33.9 pg (27-33) H 03/26/23 16:16 MCHC 31.9 g/dL (30-55) 03/26/23 16:16 RDW 13.4 % (12.1-15.1) 03/26/23 16:16 Plt Count 262 10^3/cmm (157-399) 03/26/23 16:16 MPV 9.3 fL (7.4-10.4) 03/26/23 16:16 Neut % (Auto) 68.0 % 03/26/23 16:16 Lymph % (Auto) 20.9 % 03/26/23 16:16 [place] % (Auto) 7.1 % 03/26/23 16:16 Eos % (Auto) 3.1 % 03/26/23 16:16 Baso % (Auto) 0.7 % 03/26/23 16:16 Neut # (Auto) 6.22 10^3/uL (1.8-7.7) 03/26/23 16:16 Lymph # (Auto) 1.9 10^3/uL (0.8-4.8) 03/26/23 16:16 [place] # (Auto) 0.7 10^3/uL (0.2-0.9) 03/26/23 16:16 Eos # (Auto) 0.3 10^3/uL (0.0-0.8) 03/26/23 16:16 Baso # (Auto) 0.1 10^3/uL (0.0-0.1) 03/26/23 16:16 Nucleated RBC % (auto) 0 % 03/26/23 16:16 Nucleated RBCs # 0.0 /100WBC 03/26/23 16:16 PT 17.20 SECONDS (12.1-14.9) H 03/26/23 16:16 INR 1.36 (0.8-1.2) H 03/26/23 16:16 Sodium 140 mmol/L (136-145) 03/26/23 16:16 Potassium 3.4 mmol/L (3.5-5.1) L 03/26/23 16:16 Chloride 99 mmol/L (98-107) 03/26/23 16:16 Carbon Dioxide 33 mmol/L (22-29) H 03/26/23 16:16 Anion Gap 11.4 (5-19) 03/26/23 16:16 BUN 14 mg/dL (8-23) 03/26/23 16:16 Creatinine 0.6 mg/dL (0.7-1.2) L 03/26/23 16:16 GFR Calculation 133.2 mL/min (90-130) H 03/26/23 16:16 Glucose 128 mg/dL (65-115) H 03/26/23 16:16 Calculated Osmolality 292 mOsm/kg (285-295) 03/26/23 16:16 Calcium 9.4 mg/dL (8.5-10.5) 03/26/23 16:16 Magnesium 1.8 mg/dL (1.7-2.3) 03/26/23 16:16 Total Bilirubin 1.0 mg/dL (0.15-1.2) 03/26/23 16:16 AST 9 U/L (0-40) 03/26/23 16:16 ALT 9 U/L (0-41) 03/26/23 16:16 Alkaline Phosphatase 79 U/L (40-130) 03/26/23 16:16 Troponin T Baseline 24 ng/L (0-15) H 03/26/23 16:16 Troponin T 120 Minute 23.41 ng/L (0-15) H 03/26/23 18:16 Delta Troponin T -0.59 ABS# (0-10) L 03/26/23 18:16 Troponin T Hi Sens 6Hr 21.37 ng/L (0-15) H 03/26/23 21:56 Troponin T Hi Sens 6Hr Delta -2.63 ng/L (0-12) L 03/26/23 21:56 NT-Pro-B Natriuret Pep 2129 pg/mL (0-125) H 03/26/23 16:16 Total Protein 7.0 g/dL (6.6-8.7) 03/26/23 16:16 Albumin 3.7 g/dL (3.5-5.2) 03/26/23 16:16 Globulin 3.3 g/dL (1.3-4.6) 03/26/23 16:16 TSH 3.28 uIU/mL (0.27-4.20) 03/26/23 16:16 Urine Color Yellow (Yellow) 03/26/23 21:24 Urine Appearance Clear (CLEAR) 03/26/23 21:24 Urine pH 5 (5-7) 03/26/23 21:24 Ur Specific [place] 1.020 (1.005-1.030) 03/26/23 21:24 Urine Protein Neg (Negative) 03/26/23 21:24 Urine Glucose (UA) Norm (Normal) 03/26/23 21:24 Urine Ketones Negative (Negative) 03/26/23 21:24 Urine Blood 2+ (Negative) H 03/26/23 21:24 Urine Nitrate Negative (Negative) 03/26/23 21:24 Urine Bilirubin Neg (Negative) 03/26/23 21:24 Urine Urobilinogen Neg mg/dL (Negative) 03/26/23 21:24 Ur Leukocyte Esterase Negative (Negative) 03/26/23 21:24 Urine RBC 5-10 /hpf (0-2) H 03/26/23 21:24 Urine WBC None /hpf (0-5) 03/26/23 21:24 Ur Squamous Epith Cells 0-4 /hpf (0-5) H 03/26/23 21:24 Amorphous Sediment Not Reportable 03/26/23 21:24 Urine Bacteria Trace /hpf (NONE) 03/26/23 21:24 Urine Mucus 1+ /hpf 03/26/23 21:24 Urine Opiates Screen Negative ng/mL (Negative) 03/26/23 21:24 Ur Barbiturates Screen Negative ng/mL (Negative) 03/26/23 21:24 Ur Phencyclidine Scrn Negative ng/mL (Negative) 03/26/23 21:24 Ur Amphetamines Screen Negative ng/mL (Negative) 03/26/23 21:24 U Benzodiazepines Scrn Negative ng/mL (Negative) 03/26/23 21:24 Urine Cocaine Screen Negative ng/mL (Negative) 03/26/23 21:24 U Marijuana (THC) Screen Negative ng/mL (Negative) 03/26/23 21:24 All radiology interpretation(s) finalized by discharge EKG Data EKG 1: I personally reviewed and interpreted this EKG as follows: EKG Interpretation Date: 03/26/23 EKG interpretation time: 15:52 Prior EKG tracings: not available for review Interpretation: EKG showed ventricular rate 98 bpm, QRS duration 109, QTc of 430, atrial fibrillation, nonspecific T wave abnormality EKG 2: I personally reviewed and interpreted this EKG as follows: EKG Interpretation Date: 03/26/23 EKG interpretation time: 17:59 Prior EKG tracings: available for review Interpretation: EKG showed ventricular rate 80 bpm, QRS duration 104, QTc of 440, atrial fibrillation, Discharge Plan Discharge Patient Disposition: Home Clinical Impression: Chest pain, non-cardiac, Shortness of breath Atrial fibrillation Qualifiers: Atrial fibrillation type: unspecified Qualified Code(s): I48.91 - Unspecified atrial fibrillation Condition: Stable Prescriptions: No Action (DME) Diabetic shoes See Rx Instructions .ROUTE .MEDSUPPLY Qty: 1 0RF Rx Instructions: With 3 pairs of inserts made by the shoe [employer] aspirin 81 mg Tablet,Chewable 81 mg PO QAM citalopram 10 mg Tablet 10 mg PO BEDTIME atorvastatin 20 mg tablet 20 mg PO QAM trazodone 100 mg tablet 100 mg PO BEDTIME montelukast 10 mg tablet 10 mg PO DAILY PRN (Reason: Allergy Symptoms) ipratropium-albuterol 0.5 mg-3 mg(2.5 mg base)/3 mL solution for nebulization 3 ml INHALATION TID diltiazem HCl 180 mg capsule,extended release 24hr 180 mg PO BEDTIME Eliquis 5 mg tablet 5 mg PO BID Discharge Orders: Discharge ED (Routine); Ordered 03/26/23 Ordered By: Mo Paredes Referrals: Sushil Valerio DO [Primary Care Provider] - 1 week Patient Instructions: Atrial Fibrillation, Chest Pain - Noncardiac, Shortness of Breath (ED) Activity Restrictions/Additional Instructions: Please follow-up with your family practice physician Within the next 7 to 10 days for further evaluation and treatment as needed. Coding Level of Care Code ED Videotape Recording Engineer for Jon Hunter
--- NOTE | 2023-03-26 16:30 | PC.PHAR ---
pts daughter in law verified pts medications-pts daughter in law states Dr.K Chew dced carvedilol 6.25mg bid (rx filled 10/23/22 90d/s)lasix 40mg daily (filled 10/23/22 90d/s) metformin 1000mg bid (filled 10/17/22 30d/s),and kcl 20meq daily (rx filled 08/27/22 90d/s) states dced last week-pts daughter in law states the pt is only taking the medications entered
[2023-03-26 16:40] LABS: Basophils # 0.1 10^3/uL (0.0-0.1); Basophils % 0.7 %; Eosinophils # 0.3 10^3/uL (0.0-0.8); Eosinophils % 3.1 %; Hematocrit 36.4 % (37-53); Lymphocytes # 1.9 10^3/uL (0.8-4.8); Lymphocytes % 20.9 %; Mean Corpuscular HGB Conc 31.9 g/dL (30-55); Mean Corpuscular Hemoglobin 33.9 pg (27-33); Mean Corpuscular Volume 106.4 fl (82-101); Mean Platelet Volume 9.3 fL (7.4-10.4); Monocytes # 0.7 10^3/uL (0.2-0.9); Monocytes % 7.1 %; Neutrophils # 6.22 10^3/uL (1.8-7.7); Nucleated Red Blood Cells % 0 %; Platelet Count 262 10^3/cmm (157-399); Red Blood Count 3.42 10^6/uL (3.85-5.65); Red Cell Distribution Width 13.4 % (12.1-15.1); White Blood Count 9.14 10^3/uL (3.29-11.43)
[2023-03-26 16:53] LABS: INR 1.36 (0.8-1.2)
[2023-03-26 16:59] LABS: Troponin(5th) Baseline 24 ng/L (0-15)
[2023-03-26 17:09] LABS: Alanine Aminotransferase 9 U/L (0-41); Albumin Level 3.7 g/dL (3.5-5.2); Alkaline Phosphatase 79 U/L (40-130); Anion Gap 11.4 (5-19); Aspartate Amino Transferase 9 U/L (0-40); Blood Urea Nitrogen 14 mg/dL (8-23); Calcium 9.4 mg/dL (8.5-10.5); Carbon Dioxide 33 mmol/L (22-29); Chloride 99 mmol/L (98-107); Globulin 3.3 g/dL (1.3-4.6); Glomerular Filtration Rate 133.2 mL/min (90-130); Glucose 128 mg/dL (65-115); Magnesium 1.8 mg/dL (1.7-2.3); NT Pro B Type Natriuretic Pept 2129 pg/mL (0-125); Osmolality Calculated 292 mOsm/kg (285-295); Potassium 3.4 mmol/L (3.5-5.1); Sodium 140 mmol/L (136-145); Thyroid Stimulating Hormone 3.28 uIU/mL (0.27-4.20)
--- NOTE | 2023-03-26 17:59 | ECG_ITS ---
[facility] Test Date: 2023-03-26 Pat Name: Jasper Savage Department: Room: Gender: Male Quality Coordinator: : 1950 Requested By: Mo Paredes Order Number: [id number] Ariana MD: Hailey Holley M.D. Measurements Intervals [place] Rate: 88 P: 0 NM: 0 QRS: 48 QRSD: 104 T: 37 QT: 394 QTc: 479 Interpretive Statements ATRIAL FIBRILLATION ABNORMAL RHYTHM ECG Compared to ECG 03/26/2023 15:52:17 T-wave abnormality no longer present Electronically Signed On 03-26-2023 23:29:14 PERSONAL LINES INSURANCE ADVISOR by Hailey Holley M.D. [id number]
[2023-03-26 18:45] LABS: Troponin 5 2HR 23.41 ng/L (0-15)
[2023-03-26 18:49] LABS: Troponin 5 2HR Delta -0.59 ABS# (0-10)
[2023-03-26 19:00] VITALS: BP 130/74; PULSE 78; O2SAT 100
--- NOTE | 2023-03-26 19:40 | PC.NURSE ---
NURSE ASSUMED CARE AT 1900.
[2023-03-26 19:44] VITALS: BP 122/71; PULSE 83; O2SAT 99
[2023-03-26 21:45] VITALS: BP 150/90; PULSE 86; O2SAT 96
[2023-03-26 21:58] LABS: Amphetamines Screen Urine Negative (Negative); Barbiturates Screen Urine Negative (Negative); Benzodiazepines Screen Urine Negative (Negative); Cocaine Screen Urine Negative (Negative); Opiate Screen Urine Negative (Negative); PCP Screen Urine Negative (Negative); THC Screen Urine Negative (Negative)
[2023-03-26 22:21] LABS: Add Urine Microscopic? YES; Bilirubin Urine Neg (Negative); Blood Urine 2+ (Negative); Glucose Urine UA Norm (Normal); Ketones Urine Negative (Negative); Leukocyte Esterase Urine Negative (Negative); Nitrate Urine Negative (Negative); Protein Urine Neg (Negative); Urine Appearance Clear (CLEAR); Urine Color Yellow (Yellow); Urobilinogen Urine Neg (Negative); pH Urine 5 (5-7)
[2023-03-26 22:23] LABS: Add Urine Culture? No; Bacteria Urine TRACE /hpf; Mucus Urine 1+ /hpf; Squamous Epithelial Cell Urine 0-4 /hpf (0-5)
[2023-03-26 22:23] LABS: Troponin 5 6HR 21.37 ng/L (0-15)
[2023-03-26 22:24] LABS: Troponin 5 6HR Delta -2.63 ng/L (0-12)
== END 2023-03-26 22:16 | disposition home or self-care (01) ==
PROVIDERS: Emergency Provider Emergency Medicine; PCP Internal Medicine
DX: R07.89 Other chest pain (principal); R06.02 Shortness of breath; I48.91 Unspecified atrial fibrillation; Z79.82 Long term (current) use of aspirin; Z79.01 Long term (current) use of anticoagulants; F17.210 Nicotine dependence, cigarettes, uncomplicated; I25.10 Atherosclerotic heart disease of native coronary artery without angina pectoris; J44.9 Chronic obstructive pulmonary disease, unspecified; E11.9 Type 2 diabetes mellitus without complications; I25.5 Ischemic cardiomyopathy; I10 Essential (primary) hypertension
CPT/HCPCS: 36415; 71045; 80053; 80306; 81001; 83735; 83880; 84443; 84484; 85025; 85610; 93005; 99285

== ENCOUNTER 2023-04-08 11:53 | Outpatient (CLI) | payer MEDICARE, SELFPAY ==
--- NOTE | 2023-04-08 11:59 | USCV_ITS ---
Jasper Savage Age: 73 Gender: M : 1950 Exam Date: 04/08/2023 12:27 Ordering Phys: Kacey Chew Technologist: Exam Location: [facility] [place] Indication: weakness BP: 130 / 74 HR: 108 Rhythm: Sinus Technical Quality: Adequate MEASUREMENTS (Male / Female) Normal Values 2D ECHO LV Diastolic Diameter PLAX 5.6 cm 4.2 - 5.9 / 3.9 - 5.3 cm LV Systolic Diameter PLAX 5.0 cm IVS Diastolic Thickness 1.2 cm 0.6 - 1.0 / 0.6 - 0.9 cm IVS Systolic Thickness 1.2 cm LVPW Diastolic Thickness 1.1 cm 0.6 - 1.0 / 0.6 - 0.9 cm LVPW Systolic Thickness 1.1 cm LVOT Diameter 2.1 cm LV Ejection Fraction 2D Teich 21.2 % LV Ejection Fraction MOD 2C 45.0 % LV Ejection Fraction 2C AL 46.1 % LA Diameter 3.9 cm M-MODE Aortic Annulus Diameter 3.8 cm LA Ao Ratio MM 1.0 MV E Point Septal Separation 1.1 cm DOPPLER AV Peak Velocity 123.0 cm/s LVOT Peak Velocity 107.0 cm/s AV Area Cont Eq vti 3.2 cm squared AV Area Cont Eq pk 3.0 cm squared MV Area PHT 5.0 cm squared Mitral E to A Ratio 3.4 MV E' Velocity 72.5 cm/s Mitral E to MV E' Ratio 16.9 Mitral E to LV E' Lateral Ratio 11.9 Mitral E to LV E' Septal Ratio 29.0 TR Peak Velocity 134.0 cm/s TR Peak Gradient 7.2 mmHg TV Peak E Velocity 132.0 cm/s Right Atrial Pressure 3.0 mmHg Pulmonary Artery Systolic Pressu 10.2 mmHg RV Acceleration Time 0.1 s FINDINGS Left Ventricle Mildly dilated left ventricle cavity. There is no LVH. Moderately dilated left ventricle systolic function. Estimated LVEF is 40 to 45%. There is a global hypokinesis with more marked hypokinesis in the anteroseptal wall segments. Advanced diastolic dysfunction. Right Ventricle Normal right ventricular size and systolic function. Right Atrium Normal right atrial size. Left Atrium Mildly increased left atrial size. Mitral Valve Thickened mitral valve. Trace mitral valve regurgitation. Aortic Valve Thickened aortic valve. No aortic valve stenosis. Tricuspid Valve Structurally normal tricuspid valve. Trace tricuspid valve regurgitation. Pulmonic Valve Pulmonic valve not well visualized. Trace pulmonary valve regurgitation. Pericardium No pericardial effusion. Aorta Normal size aortic root and proximal ascending aorta. IVC Inferior vena cava not visualized. CONCLUSIONS Mildly dilated LV cavity with moderately reduced LV systolic function. LVEF estimated at 40 to 45% with global hypokinesis, more marked in anteroseptal segments. No significant valvular abnormality noted Normal right heart and pulmonary pressures. Sreekanth Leblanc MD (Electronically Signed) Final Date: 09 April 2023 14:40 S
== END 2023-04-08 11:54 | disposition home or self-care (01) ==
LOC: RAD 11:53
PROVIDERS: PCP Internal Medicine; Visit Provider Physician Assistant
DX: I48.91 Unspecified atrial fibrillation (principal); R53.1 Weakness; I51.89 Other ill-defined heart diseases
CPT/HCPCS: 93306

== ENCOUNTER 2023-05-01 08:18 | Outpatient (CLI) | payer MEDICARE, SELFPAY ==
--- NOTE | 2023-05-01 08:30 | CT_ITS ---
WS: [id number] LDCT LUNG CANCER SCREENING TECHNIQUE: Noncontrast CT of the chest with coronal and sagittal reformatted images. CLINICAL INFORMATION: lung cancer screening COMPARISON: CTA 10/10/2019 DLP: 107.30 mGy.cm DIvol: Mean CTDIvol: 2.40 (mGy) All CT scans at [facility] use at least one of these dose optimization techniques: automat ed exposure control; mA and/or kV adjustment per patient size (includes targeted exams where dose is matched to clinical indication); or iterative reconstruction. FINDINGS: No suspicious pulmonary parenchymal abnormalities. Aortic calcification. Normal caliber thoracic aorta. Coronary calcification. No mediastinal or hilar lymphadenopathy. Tiny pericardial effusion or thickening. No axillary lymphadenopathy. Cholelithiasis or sludge in the gallbladder. Adrenal glands are normal. Small splenule. Tiny esophageal hiatal selena ia. Slight pleural thickening LEFT lower lobe. Lungs are well aerated. Thoracic curve. Hypertrophic changes thoracic spine. Thoracic kyphosis. Calcified granuloma LEFT lowe r lobe. IMPRESSION: CT/CT lung screening [id number] LUNG-RADS: 2-Benign Appearance or Behavior FOLLOW UP: 12 Month: Continue annual screening with LDCT
== END 2023-05-01 08:19 | disposition home or self-care (01) ==
LOC: RAD 08:18
PROVIDERS: PCP Family Medicine; Visit Provider Family Medicine
DX: Z12.2 Encounter for screening for malignant neoplasm of respiratory organs (principal); F17.219 Nicotine dependence, cigarettes, with unspecified nicotine-induced disorders
CPT/HCPCS: 71271

== ENCOUNTER → 2023-07-01 09:34 | Outpatient (BNVA) | payer MEDICARE, SELFPAY | PROVIDERS: PCP Family Medicine; Referring Provider Family Medicine; Visit Provider Podiatrist Foot & Ankle Surgery | DX: L60.3 Nail dystrophy (principal); I73.9 Peripheral vascular disease, unspecified; G63 Polyneuropathy in diseases classified elsewhere; L84 Corns and callosities; E11.49 Type 2 diabetes mellitus with other diabetic neurological complication | CPT/HCPCS: 11056; 11721 ==

== ENCOUNTER → 2023-07-03 09:07 | Outpatient (BNVA) | payer MEDICARE, SELFPAY | PROVIDERS: PCP Family Medicine; Visit Provider Family Medicine | DX: N32.81 Overactive bladder (principal) | CPT/HCPCS: 81000 ==

== ENCOUNTER → 2023-07-04 10:09 | Outpatient (BNVA) | payer MEDICARE, SELFPAY | PROVIDERS: PCP Family Medicine; Visit Provider Family Medicine | DX: N32.81 Overactive bladder (principal) | CPT/HCPCS: 81000 ==

== ENCOUNTER 2023-09-16 07:10 | Emergency (ER) | payer MEDICARE, SELFPAY ==
[2023-09-16 07:19] VITALS: BP 114/87; PULSE 116; RESP 18; TEMP 36.6; O2SAT 94; BMI 32.1
--- NOTE | 2023-09-16 07:29 | XR_ITS ---
WS: [id number] PORTABLE CHEST HISTORY: dyspnea/cough COMPARISON: 03/26/2023, CT 05/01/2023 New areas of opacification in the mid and lower lung [place]. Slight elevation of the RIGHT hemidiaphr agm. Curvilinear atelectasis or scar at the LEFT base. Mild hazy attenuation throughout the lungs is probably due to fluid overload. No pleural effusion or pneumothorax. Cardiac size: Mildly enlarged cardiac silhouette. Mediastinum/Aorta: Mild atherosclerosis aorta. No osseous abnormality seen. XR/XR chest 1V portable [id number] IMPRESSION: 1. Increasing opacification over the mid and lower lung [place] and pulmonary c ongestion. No dense area of consolidation. Favor mild pulmonary edema. 2. New curvilinear atelectasis at the LEFT lung base.
--- NOTE | 2023-09-16 07:29 | ED_ITS ---
HPI - SOB/Dyspnea 2 General: Chief Complaint: Shortness of Breath/Dyspnea Stated Complaint: sob Time Seen by Provider: 09/16/23 07:28 Source: patient Mode of arrival: ambulatory History of Present Illness: HPI Narrative: 73-year-old male presents emergency room complaining of shortness of breath and some mild chest discomfort. He had some episodes last night it improved and then recurred again this morning. He has not taken his medications this morning. He has a known history of atrial fibrillation. He has noticed rapid heart rate as well. Increased orthopnea slight increase in lower extremity edema MD elicited complaint: shortness of breath Pertinent past history: congestive heart failure Associated symptoms: Deny abdominal pain, chest pain or fever(s) Review of Systems 2 Const: Denies: fever(s) or chills Card: Denies: chest pain Resp: Denies: dyspnea GI: Denies: abdominal pain : Denies: dysuria, urinary frequency or urinary urgency Musc: Denies: neck pain or back pain Skin/Breast: Denies: rash PFSH ED 2 PFSH: Medical History Atrial fibrillation Ischemic cardiomyopathy EF 45% Obstructive sleep apnea Unable to tolerate CPAP CAD (coronary atherosclerotic disease) GERD (gastroesophageal reflux disease) DM type 2 (diabetes mellitus, type 2) Depression Anxiety Hypertension COPD (chronic obstructive pulmonary disease) Surgical History Hx of tonsillectomy H/O foot surgery History of carpal tunnel surgery H/O cardiac catheterization Stent 1998 Family History Other Diabetes Denies family history of Liver disease CAD (coronary artery disease) Aneurysm Autoimmune disease Clotting disorder Dementia Heart disease Hyperlipidemia Psychiatric illness Chronic kidney disease (CKD) Bleeding disorder Lung disease Cancer Hypertension Thyroid disease Stroke Social History Smoking and tobacco/nicotine status: current every day tobacco/nicotine user cigarettes Packs smoked per day: 1 Years cigarettes smoked: 50 Alcohol intake: former Substance/Drug Use: never Household members: spouse and family Housing: House Current occupational status: retired Physical Exam 2 Const: GENERAL APPEARANCE: cooperative and comfortable O RIENTATION/CONSCIOUSNESS: Yes awake, Yes oriented to person, Yes oriented to place and Yes oriented to time HENMT: COMMON NORMALS: normocephalic, atraumatic and hearing grossly normal bilaterally HEAD & SCALP: normocephalic and atraumatic Resp: COMMON NORMALS: normal respiratory effort, No retractions, No use of accessory muscles and clear to auscultation bilaterally AUSCULTATION: clear to auscultation bilaterally Cardio: COMMON NORMALS: regular rhythm and No murmurs present (Cardio) R ATE: tachycardic RHYTHM: regular rhythm GI: COMMON NORMALS: Soft to palpation and No hepatosplenomegaly present A USCULTATION: Yes normoactive bowel sounds PALPATION: Yes Soft to palpation, No Tenderness to palpation present (GI), No Guarding due to palpation present (GI) and Yes No hepatosplenomegaly present : MALE GROIN/PERINEUM EXAM: Yes edema Extremity: COMMON NORMALS: normal to inspection, capillary refill normal, no clubbing, cyanosis or edema, no calf tenderness and no pedal edema Neuro: SENSORIUM/ORIENTATION: Yes oriented to person, Yes oriented to place and Yes oriented to time Skin: COMMON NORMALS: no rashes or lesions noted GENERAL SKIN EXAM: no rashes or lesions noted Course 2 Vital Signs: Vital signs: Vital Signs Temperature 97.9 F 09/16/23 07:19 Pulse Rate 101 H 09/16/23 10:00 Respiratory Rate 18 09/16/23 07:19 Blood Pressure 154/93 09/16/23 10:00 Pulse Oximetry 95 09/16/23 10:00 Oxygen Delivery Me thod Nasal Cannula 09/16/23 10:00 Oxygen Flow Rate 2 09/16/23 10:00 MDM - SOB/Dyspnea Medical Decision Making Symptoms improved with treatment. He was given a IV injection of diltiazem and given his usual a.m. dose of diltiazem. He is also given IV Lasix symptoms have improved. Will discharge home on Lasix 20 mg daily increase diltiazem to 240 p.o. daily. Incidental finding of cystitis will start Cipro 500 mg 1 p.o. twice daily for 7 days. Follow-up with your primary care doctor within the next 3 to 4 days. Return to the emergency room if you have any worsening symptoms. Medical Records I reviewed the patient's medical records. Lab Data I reviewed the patient's lab results. 09/16/23 07:26 09/16/23 07:26 Labs/Radiology: Radiology Impressions Chest X-Ray 09/16/23 07:29 IMPRESSION: 1. Increasing opacification over the mid and lower lung [place] and pulmonary congestion. No dense area of consolidation. Favor mild pulmonary edema. 2. New curvilinear atelectasis at the LEFT lung base. Laboratory Results WBC 11.18 10^3/uL (3.29-11.43) 09/16/23 07:26 RBC 5.31 10^6/uL (3.85-5.65) 09/16/23 07:26 Hgb 14.40 g/dL (11.27-16.99) 09/16/23 07:26 Hct 47.7 % (37-53) 09/16/23 07:26 MCV 89.8 fl (82-101) 09/16/23 07:26 MCH 27.1 pg (27-33) 09/16/23 07:26 MCHC 30.2 g/dL (30-55) 09/16/23 07:26 RDW 16.8 % (12.1-15.1) H 09/16/23 07:26 Plt Count 244 10^3/cmm (157-399) 09/16/23 07:26 MPV 10.1 fL (7.4-10.4) 09/16/23 07:26 Neut % (Auto) 77.5 % 09/16/23 07:26 Lymph % (Auto) 14.9 % 09/16/23 07:26 [place] % (Auto) 5.6 % 09/16/23 07:26 Eos % (Auto) 1.0 % 09/16/23 07:26 Baso % (Auto) 0.6 % 09/16/23 07:26 Neut # (Auto) 8.66 10^3/uL (1.8-7.7) H 09/16/23 07:26 Lymph # (Auto) 1.7 10^3/uL (0.8-4.8) 09/16/23 07:26 [place] # (Auto) 0.6 10^3/uL (0.2-0.9) 09/16/23 07:26 Eos # (Auto) 0.1 10^3/uL (0.0-0.8) 09/16/23 07:26 Baso # (Auto) 0.1 10^3/uL (0.0-0.1) 09/16/23 07:26 Nucleated RBC % (auto) 0 % 09/16/23 07:26 Nucleated RBCs # 0.0 /100WBC 09/16/23 07:26 Sodium 142 mmol/L (136-145) 09/16/23 07:26 Potassium 4.4 mmol/L (3.5-5.1) 09/16/23 07:26 Chloride 100 mmol/L (98-107) 09/16/23 07:26 Carbon Dioxide 31 mmol/L (22-29) H 09/16/23 07:26 Anion Gap 15.4 (5-19) 09/16/23 07:26 BUN 20 mg/dL (8-23) 09/16/23 07:26 Creatinine 0.9 mg/dL (0.7-1.2) 09/16/23 07:26 GFR Calculation Not Reportable 09/16/23 07:26 Glucose 116 mg/dL (65-115) H 09/16/23 07:26 Calculated Osmolality 298 mOsm/kg (285-295) H 09/16/23 07:26 Calcium 9.6 mg/dL (8.5-10.5) 09/16/23 07:26 Total Bilirubin 1.0 mg/dL (0.15-1.2) 09/16/23 07:26 AST 12 U/L (0-40) 09/16/23 07:26 ALT 9 U/L (0-41) 09/16/23 07:26 Alkaline Phosphatase 107 U/L (40-130) 09/16/23 07:26 Troponin T Baseline 40 ng/L (0-15) H 09/16/23 07:26 Troponin T 120 Minute 34.43 ng/L (0-15) H 09/16/23 09:40 Delta Troponin T -5.57 ABS# (0-10) L 09/16/23 09:40 NT-Pro-B Natriuret Pep 5327 pg/mL (0-125) H 09/16/23 07:26 Total Protein 7.9 g/dL (6.6-8.7) 09/16/23 07:26 Albumin 4.2 g/dL (3.5-5.2) 09/16/23 07:26 Globulin 3.7 g/dL (1.3-4.6) 09/16/23 07:26 Urine Color Straw (Yellow) 09/16/23 08:31 Urine Appearance Sl hazy (CLEAR) A 09/16/23 08:31 Urine pH 8 (5-7) H 09/16/23 08:31 Ur Specific [place] 1.005 (1.005-1.030) 09/16/23 08:31 Urine Protein Neg (Negative) 09/16/23 08:31 Urine Glucose (UA) Norm (Normal) 09/16/23 08:31 Urine Ketones Negative (Negative) 09/16/23 08:31 Urine Blood Trace (Negative) H 09/16/23 08:31 Urine Nitrate Positive (Negative) H 09/16/23 08:31 Urine Bilirubin Neg (Negative) 09/16/23 08:31 Urine Urobilinogen Norm mg/dL (Negative) 09/16/23 08:31 Ur Leukocyte Esterase 2+ (Negative) H 09/16/23 08:31 Urine RBC 0-4 /hpf (0-2) H 09/16/23 08:31 Urine WBC 15-25 /hpf (0-5) H 09/16/23 08:31 Ur Squamous Epith Cells None /hpf (0-5) 09/16/23 08:31 Amorphous Sediment Not Reportable 09/16/23 08:31 Urine Bacteria 2+ /hpf (NONE) H 09/16/23 08:31 All radiology interpretation(s) finalized by discharge Discharge Plan Discharge Patient Disposition: Home Clinical Impression: CHF (congestive heart failure), Cystitis Atrial fibrillation Qualifiers: Atrial fibrillation type: unspecified Qualified Code(s): I48.91 - Unspecified atrial fibrillation Condition: Stable Prescriptions: New Lasix 20 mg tablet 20 mg PO DAILY Qty: 30 0RF Cardizem LA 240 mg tablet extended release 24 hr 240 mg PO DAILY Qty: 30 0RF Cipro 500 mg tablet 500 mg PO BID 7 Days Qty: 14 0RF Discontinued diltiazem HCl 180 mg capsule,extended release 24hr 180 mg PO BEDTIME No Action Eliquis 5 mg tablet 5 mg PO BID Qty: 90 2RF (DME) Diabetic shoes See Rx Instructions .ROUTE .MEDSUPPLY Qty: 1 0RF Rx Instructions: With 3 pairs of inserts made by the [employer] oxybutynin chloride 5 mg tablet 5 mg PO DAILY Qty: 30 1RF fluticasone furoate-vilanterol [Breo Ellipta] 100-25 mcg/dose blister with device 1 inh inhalation DAILY Qty: 60 0RF Rx Instructions: to replace symbicort aspirin 81 mg Tablet,Chewable 81 mg PO QAM citalopram 10 mg Tablet 10 mg PO BEDTIME atorvastatin 20 mg tablet 20 mg PO QAM trazodone 100 mg tablet 100 mg PO BEDTIME montelukast 10 mg tablet 10 mg PO DAILY PRN (Reason: Allergy Symptoms) ipratropium-albuterol 0.5 mg-3 mg(2.5 mg base)/3 mL solution for nebulization 3 ml INHALATION TID Qty: 180 2RF Discharge Orders: Discharge ED (Routine); Ordered 09/16/23 Ordered By: Lj Morgan Referrals: Royer Fontaine MD [Primary Care Provider] - Discharge Diet: Usual diet Discharge Activity: Resume usual activity Patient Instructions: Opioid Safety, Pain Management Activity Restrictions/Additional Instructions: Thank you for choosing [facility] for your healthcare needs today. Please realize this is an emergency room and that we are providing you with a medical screening exam and this may not be complete and all inclusive of all the testing and or work up that you may need to determine your ailment or severity of your illness. It is very important that you follow up as instructed or that you return to the Emergency Department should you have concerns or if your condition changes or worsens in any way. You were seen today with complaints of shortness of breath. EKG did not show any acute changes cardiac enzymes trended normal. You do have some signs of slight increase of heart failure and your heart rate was rapid when you first arrived. This improved with medications given recommend that you increase your diltiazem to 240 mg daily add Lasix 20 mg daily and follow-up with your primary care doctor within the next 3 to 4 days. Incidental finding of a bladder infection today recommend you start on antibiotics 1 pill twice daily for 7 days. Coding Level of Care Code ED Hotel Office Manager for Jon Hunter
--- NOTE | 2023-09-16 07:29 | ECG_ITS ---
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 Measurements Intervals [place] Rate: 116 P: 0 KS: 0 QRS: 14 QRSD: 104 T: -3 QT: 330 QTc: 458 Interpretive Statements ATRIAL FIBRILLATION WITH RAPID VENTRICULAR RESPONSE NONSPECIFIC T-WAVE ABNORMALITY Compared to ECG 03/26/2023 17:59:25 T-wave abnormality now present Electronically Signed On 09-16-2023 10:54:28 CDT by Dontae Dangelo M.D. [id number]
[2023-09-16 07:36] LABS: Basophils # 0.1 10^3/uL (0.0-0.1); Basophils % 0.6 %; Eosinophils # 0.1 10^3/uL (0.0-0.8); Hematocrit 47.7 % (37-53); Lymphocytes # 1.7 10^3/uL (0.8-4.8); Lymphocytes % 14.9 %; Mean Corpuscular HGB Conc 30.2 g/dL (30-55); Mean Corpuscular Hemoglobin 27.1 pg (27-33); Mean Corpuscular Volume 89.8 fl (82-101); Mean Platelet Volume 10.1 fL (7.4-10.4); Monocytes # 0.6 10^3/uL (0.2-0.9); Monocytes % 5.6 %; Neutrophils # 8.66 10^3/uL (1.8-7.7); Neutrophils % 77.5 %; Nucleated Red Blood Cells % 0 %; Platelet Count 244 10^3/cmm (157-399); Red Blood Count 5.31 10^6/uL (3.85-5.65); Red Cell Distribution Width 16.8 % (12.1-15.1); White Blood Count 11.18 10^3/uL (3.29-11.43)
[2023-09-16] MEDS: FUROsemide 10 mg/mL SDV 4mL 40 MG IVP (07:55)
[2023-09-16 07:56] LABS: Troponin(5th) Baseline 40 ng/L (0-15)
[2023-09-16] MEDS: dilTIAZem ER (24HR) 180 mg Capsule PO (07:56)
[2023-09-16] MEDS: apixaban 5 mg Tablet PO (07:56)
[2023-09-16] MEDS: dilTIAZem 5 mg/mL SDV 5 mL IVP (07:57)
[2023-09-16 08:05] LABS: Alanine Aminotransferase 9 U/L (0-41); Albumin Level 4.2 g/dL (3.5-5.2); Alkaline Phosphatase 107 U/L (40-130); Anion Gap 15.4 (5-19); Aspartate Amino Transferase 12 U/L (0-40); Blood Urea Nitrogen 20 mg/dL (8-23); Calcium 9.6 mg/dL (8.5-10.5); Carbon Dioxide 31 mmol/L (22-29); Chloride 100 mmol/L (98-107); Creatinine Clr Calc Pharmacy 92.5435; Globulin 3.7 g/dL (1.3-4.6); Glucose 116 mg/dL (65-115); NT Pro B Type Natriuretic Pept 5327 pg/mL (0-125); Osmolality Calculated 298 mOsm/kg (285-295); Potassium 4.4 mmol/L (3.5-5.1); Sodium 142 mmol/L (136-145); Total Protein 7.9 g/dL (6.6-8.7)
--- NOTE | 2023-09-16 08:23 | PC.NURSE ---
PT PLACED ON 2L NASAL CANNULA DUE TO PT STATING HE WEARS 2L AT HOME TYPICALLY.
[2023-09-16 08:24] VITALS: O2SAT 97
[2023-09-16 09:00] VITALS: BP 140/90; PULSE 102; O2SAT 97
[2023-09-16 09:07] LABS: Add Urine Microscopic? YES; Bilirubin Urine Neg (Negative); Blood Urine Trace (Negative); Glucose Urine UA Norm (Normal); Ketones Urine Negative (Negative); Leukocyte Esterase Urine 2+ (Negative); Nitrate Urine Positive (Negative); Protein Urine Neg (Negative); Specific Gravity, Urine 1.005 (1.005-1.030); Urine Appearance SL Hazy (CLEAR); Urine Color Straw (Yellow); Urobilinogen Urine Norm (Negative); pH Urine 8 (5-7)
[2023-09-16 09:08] LABS: Add Urine Culture? Yes; Bacteria Urine 2+ /hpf; RBC Urine 0-4 /hpf (0-2); WBC Urine 15-25 /hpf (0-5)
--- NOTE | 2023-09-16 09:23 | ECG_ITS ---
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 Measurements Intervals [place] Rate: 99 P: 0 MI: 0 QRS: 24 QRSD: 109 T: 1 QT: 338 QTc: 434 Interpretive Statements ATRIAL FIBRILLATION MODERATE INTRAVENTRICULAR CONDUCTION DELAY [105+ ms QRS DURATION, 80+ ms Q/S IN V1/V2, NO Q AND 60+ ms R IN I/aVL/V5/V6] Compared to ECG 09/16/2023 07:21:11 Intraventricular conduction delay now present T-wave abnormality no longer present Electronically Signed On 09-16-2023 10:57:05 CDT by Dontae Dangelo M.D. [id number]
[2023-09-16 10:00] VITALS: BP 154/93; PULSE 101; O2SAT 95
[2023-09-16 10:01] LABS: Troponin 5 2HR 34.43 ng/L (0-15)
[2023-09-16 10:05] LABS: Troponin 5 2HR Delta -5.57 ABS# (0-10)
[2023-09-16 10:24] VITALS: BP 154/93; PULSE 119; O2SAT 96
== END 2023-09-16 10:25 | disposition home or self-care (01) ==
PROVIDERS: Emergency Provider Family Medicine; PCP Family Medicine
DX: I48.91 Unspecified atrial fibrillation (principal); N30.90 Cystitis, unspecified without hematuria; I11.0 Hypertensive heart disease with heart failure; I50.9 Heart failure, unspecified; Z79.01 Long term (current) use of anticoagulants; Z79.82 Long term (current) use of aspirin; I25.5 Ischemic cardiomyopathy; I25.10 Atherosclerotic heart disease of native coronary artery without angina pectoris; E11.9 Type 2 diabetes mellitus without complications; J44.9 Chronic obstructive pulmonary disease, unspecified
CPT/HCPCS: 36415; 71045; 80053; 81001; 83880; 84484; 85025; 87077; 87086; 87186; 93005; 96374; 96375; 99285; J1940; J3490

== ENCOUNTER 2024-04-04 20:23 | Emergency (ER) | payer MEDICARE, SELFPAY ==
--- NOTE | 2024-04-04 20:25 | XRR_ITS ---
PROCEDURE INFORMATION: Exam: XR Chest Exam date and time: 04/04/2024 9:02 PM Age: 74 years old Clinical indication: Chest pressure; Patient HX: Chest pain TECHNIQUE: Imaging protocol: Radiologic exam of the chest. Views: 1 view. COMPARISON: CR XR chest 1V portable [id number] 09/16/2023 7:36 AM FINDINGS: Lungs: No focal consolidation. Pleural spaces: No evidence of pneumothorax. No evidence of pleural effusion. Heart/Mediastinum: Mild cardiomegaly. Cardiomediastinal silhouette is otherwise within normal limits. Bones/joints: No evidence of acute osseous abnormality. XR/XR chest 1V portable [id number] IMPRESSION: 1. No acute cardiopulmonary abnormality.
--- NOTE | 2024-04-04 20:25 | ECG_ITS ---
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1950 Requested By: Alfonso Kelly Order Number: [id number] Reading MD: FRANKY CAMACHO Measurements Intervals [place] Rate: 125 P: 0 ND: 0 QRS: 26 QRSD: 108 T: 28 QT: 316 QTc: 456 Interpretive Statements ATRIAL FIBRILLATION WITH RAPID VENTRICULAR RESPONSE WITH ABERRANT CONDUCTION OR VENTRICULAR PREMATURE COMPLEXES NONSPECIFIC T-WAVE ABNORMALITY ABNORMAL RHYTHM ECG Compared to ECG 09/16/2023 09:23:10 Ventricular premature complex(es) now present Aberrant conduction of supraventricular beat(s) now present T-wave abnormality now present Intraventricular conduction delay no longer present Electronically Signed On 04-06-2024 19:26:35 FORENSIC ENGINEER by FRANKY CAMACHO [id number]
[2024-04-04 20:33] VITALS: BP 161/96; PULSE 115; RESP 22; TEMP 36.7; O2SAT 96; BMI 32.1
--- NOTE | 2024-04-04 20:39 | ED_ITS ---
HPI - Chest Pain 2 General: Chief Complaint: Chest Pain Stated Complaint: CP stinging in throat and mouth Time Seen by Provider: 04/04/24 20:25 Source: patient Mode of arrival: ambulatory Limitations: no limitations History of Present Illness: 74-year-old male history of A-fib along with COPD states been having chest pain since yesterday states been a sharp pain he is also in A-fib with RVR here heart rates in the 120s. He states he had some dyspnea as well has a history of COPD denies any cough denies any fever has had some nausea denies any vomiting Associated symptoms: Reports abdominal pain, nausea and palpitations; Deny dyspnea, fever(s) or vomiting Related Data Home Medications Medication Instructions Recorded Confirmed atorvastatin 20 mg tablet 20 mg PO QAM 10/11/19 09/16/23 citalopram 10 mg tablet 10 mg PO BEDTIME 10/11/19 09/16/23 montelukast 10 mg tablet 10 mg PO DAILY PRN Allergy Symptoms 10/11/19 09/16/23 trazodone 100 mg tablet 100 mg PO BEDTIME 10/11/19 09/16/23 aspirin 81 mg chewable tablet 81 mg PO QAM 11/03/19 09/16/23 Previous Rx's Medication Instructions Recorded Diabetic shoes #1 ea 03/22/23 apixaban 5 mg tablet (Eliquis) 5 mg PO BID #90 tabs 04/24/23 diltiazem HCl 240 mg 240 mg PO DAILY #30 tabs 09/16/23 tablet,extended release 24 hr (Cardizem LA) furosemide 20 mg tablet (Lasix) 20 mg PO DAILY #30 tabs 09/16/23 ipratropium 0.5 mg-albuterol 3 mg 3 ml inhalation TID #180 mL 10/02/23 (2.5 mg base)/3 mL nebulization soln oxybutynin chloride 5 mg tablet 5 mg PO DAILY #90 tabs 02/17/24 fluticasone furoate 100 See Rx Instructions .Route 03/19/24 mcg-vilanterol 25 mcg/dose .COMPLEX #60 ea inhalation powder (Breo Ellipta) amoxicillin 500 mg-potassium 1 tab PO BID #14 tabs 04/04/24 clavulanate 125 mg tablet (Augmentin) hydrocodone 5 mg-acetaminophen 325 1 tab PO Q6H PRN pain #14 tabs 04/04/24 mg tablet ondansetron 4 mg disintegrating 4 mg PO Q6H PRN nausea and 04/04/24 tablet vomiting #14 tabs Allergies Allergy/AdvReac Type Severity Reaction Status Date / Time No Known Allergies Allergy Verified 07/29/23 10:40 Review of Systems 2 Const: Denies: fever(s), chills, body aches or change in appetite ENMT: Denies: throat pain or dental pain Card: Reports: chest pain, palpitations and irregular heart rhythm Resp: Denies: dyspnea GI: Reports: abdominal pain and nausea; Denies: vomiting or diarrhea Musc: Denies: neck pain or back pain Skin/Breast: Denies: rash Neuro: Denies: headache(s) PFSH ED 2 PFSH: Medical History Atrial fibrillation Ischemic cardiomyopathy EF 45% Obstructive sleep apnea Unable to tolerate CPAP CAD (coronary atherosclerotic disease) GERD (gastroesophageal reflux disease) DM type 2 (diabetes mellitus, type 2) Depression Anxiety Hypertension COPD (chronic obstructive pulmonary disease) Surgical History Hx of tonsillectomy H/O foot surgery History of carpal tunnel surgery H/O cardiac catheterization Stent 1998 Family History Other Diabetes Denies family history of Liver disease CAD (coronary artery disease) Aneurysm Autoimmune disease Clotting disorder Dementia Heart disease Hyperlipidemia Psychiatric illness Chronic kidney disease (CKD) Bleeding disorder Lung disease Cancer Hypertension Thyroid disease Stroke Social History Smoking and tobacco/nicotine status: current every day tobacco/nicotine user cigarettes Packs smoked per day: 1 Years cigarettes smoked: 50 Alcohol intake: former Substance/Drug Use: never Household members: spouse and family Housing: House Current occupational status: retired Physical Exam 2 Const: COMMON NORMALS: patient oriented x3 HENMT: COMMON NORMALS: normocephalic and atraumatic HEAD & SCALP: n ormocephalic and atraumatic Eye: COMMON NORMALS: conjunctivae normal CONJUNCTIVA: Yes conjunctivae normal Neck/C-Spine: COMMON NORMALS: full ROM and supple Chest: COMMONS NORMALS: normal inspection of the chest and normal palpation of entire chest wall Resp: COMMON NORMALS: normal respiratory effort, No retractions, No use of accessory muscles and clear to auscultation bilaterally AUSCULTATION: clear to auscultation bilaterally Cardio: COMMON NORMALS: No murmurs present (Cardio) RATE: tachycardic R HYTHM: abnormal rhythm irregularly irregular GI: COMMON NORMALS: Normal to inspection, nondistended, normoactive bowel sounds present, Soft to palpation, non-tender and no masses PALPATION: Yes Soft to palpation Extremity: COMMON NORMALS: normal to inspection and full ROM Neuro: COMMON NORMALS: patient oriented x3, moves all extremities and no focal motor deficits Psych: COMMON NORMALS: mental status grossly normal, Normal thought process present and cooperative THOUGHT PROCESS: Normal thought process present Skin: COMMON NORMALS: no rashes or lesions noted and no wounds GENERAL SKIN EXAM: no rashes or lesions noted Course 2 Vital Signs: Vital signs: Vital Signs Temperature 98.0 F 04/04/24 20:33 Pulse Rate 99 04/04/24 22:53 Respiratory Rate 22 H 04/04/24 22:53 Blood Pressure 131/87 04/04/24 22:53 Pulse Oximetry 93 04/04/24 22:53 Oxygen Delivery Me thod Room Air 04/04/24 22:05 MDM - Chest Pain Medical Decision Making Patient presents here with chest pain follow-up upper abdominal pain is likely more biliary colic his troponins here showed no change CT does show some gallstones and mildly elevated white count abdominal exam at discharge is benign we will start him on Augmentin and have him follow-up with surgery as no signs of choledocholithiasis or ascending cholangitis he is return to ER if worsening he understands agrees to plan Medical Records I reviewed the patient's medical records. Lab Data I reviewed the patient's lab results. 04/04/24 20:45 04/04/24 20:45 Radiology Impressions Chest X-Ray 04/04/24 20:25 IMPRESSION: 1. No acute cardiopulmonary abnormality. Abdomen/Pelvis CT 04/04/24 21:39 IMPRESSION: 1. Cholelithiasis with very mild gallbladder wall edema, raising the question of symptomatic cholelithiasis. Consider correlation with biliary labs and right upper quadrant ultrasound. 2. Possible cystitis. 3. Extensive atherosclerosis with moderate narrowing of the proximal SMA. Consider follow-up outpatient vascular evaluatiion. Laboratory Results WBC 13.41 10^3/uL (3.29-11.43) H 04/04/24 20:45 RBC 5.43 10^6/uL (3.85-5.65) 04/04/24 20:45 Hgb 15.60 g/dL (11.27-16.99) 04/04/24 20:45 Hct 50.4 % (37-53) 04/04/24 20:45 MCV 92.8 fl (82-101) 04/04/24 20:45 MCH 28.7 pg (27-33) 04/04/24 20:45 MCHC 31.0 g/dL (30-55) 04/04/24 20:45 RDW 13.3 % (12.1-15.1) 04/04/24 20:45 Plt Count 264 10^3/cmm (157-399) 04/04/24 20:45 MPV 10.4 fL (7.4-10.4) 04/04/24 20:45 Neut % (Auto) 69.8 % 04/04/24 20:45 Lymph % (Auto) 21.9 % 04/04/24 20:45 [place] % (Auto) 6.3 % 04/04/24 20:45 Eos % (Auto) 1.3 % 04/04/24 20:45 Baso % (Auto) 0.4 % 04/04/24 20:45 Neut # (Auto) 9.35 10^3/uL (1.8-7.7) H 04/04/24 20:45 Lymph # (Auto) 2.9 10^3/uL (0.8-4.8) 04/04/24 20:45 [place] # (Auto) 0.9 10^3/uL (0.2-0.9) 04/04/24 20:45 Eos # (Auto) 0.2 10^3/uL (0.0-0.8) 04/04/24 20:45 Baso # (Auto) 0.1 10^3/uL (0.0-0.1) 04/04/24 20:45 Nucleated RBC % (auto) 0 % 04/04/24 20:45 Nucleated RBCs # 0.0 /100WBC 04/04/24 20:45 PT 13.80 SECONDS (12.1-14.9) 04/04/24 20:45 INR 1.03 (0.8-1.2) 04/04/24 20:45 Sodium 142 mmol/L (136-145) 04/04/24 20:45 Potassium 4.2 mmol/L (3.5-5.1) 04/04/24 20:45 Chloride 100 mmol/L (98-107) 04/04/24 20:45 Carbon Dioxide 31 mmol/L (22-29) H 04/04/24 20:45 Anion Gap 15.2 (5-19) 04/04/24 20:45 BUN 25 mg/dL (8-23) H 04/04/24 20:45 Creatinine 1.1 mg/dL (0.7-1.2) 04/04/24 20:45 GFR Calculation Not Reportable 04/04/24 20:45 Glucose 136 mg/dL (65-115) H 04/04/24 20:45 Calculated Osmolality 300 mOsm/kg (285-295) H 04/04/24 20:45 Calcium 9.6 mg/dL (8.5-10.5) 04/04/24 20:45 Total Bilirubin 1.6 mg/dL (0.15-1.2) H 04/04/24 20:45 AST 31 U/L (0-40) 04/04/24 20:45 ALT 27 U/L (0-41) 04/04/24 20:45 Alkaline Phosphatase 142 U/L (40-130) H 04/04/24 20:45 Troponin T Baseline 47 ng/L (0-15) H 04/04/24 20:45 Troponin T 120 Minute 42.33 ng/L (0-15) H 04/04/24 22:18 Delta Troponin T -4.67 ABS# (0-10) L 04/04/24 22:18 Total Protein 7.6 g/dL (6.6-8.7) 04/04/24 20:45 Albumin 4.3 g/dL (3.5-5.2) 04/04/24 20:45 Globulin 3.3 g/dL (1.3-4.6) 04/04/24 20:45 Lipase 945 U/L (13-60) H 04/04/24 20:45 All radiology interpretation(s) finalized by discharge EKG Data EKG 1: I personally reviewed and interpreted this EKG as follows: EKG interpretation date: 04/04/24 EKG interpretation time: 20:29 Interpretation: afib with rvr hr [address] elevation qrs 108 qtc 390 Discharge Plan Discharge Patient Disposition: Home Clinical Impression: Biliary colic, Cholelithiasis Atrial fibrillation Qualifiers: Atrial fibrillation type: unspecified Qualified Code(s): I48.91 - Unspecified atrial fibrillation Condition: Stable Prescriptions: New hydrocodone-acetaminophen 5-325 mg tablet 1 tab PO Q6H PRN (Reason: pain) Qty: 14 0RF ondansetron 4 mg tablet,disintegrating 4 mg PO Q6H PRN (Reason: nausea and vomiting) Qty: 14 0RF amoxicillin-pot clavulanate [Augmentin] 500-125 mg tablet 1 tab PO BID Qty: 14 0RF No Action Eliquis 5 mg tablet 5 mg PO BID Qty: 90 2RF (DME) Diabetic shoes See Rx Instructions .ROUTE .MEDSUPPLY Qty: 1 0RF Rx Instructions: With 3 pairs of inserts made by the shoe [employer] ipratropium-albuterol 0.5 mg-3 mg(2.5 mg base)/3 mL solution for nebulization 3 ml INHALATION TID Qty: 180 2RF oxybutynin chloride 5 mg tablet 5 mg PO DAILY Qty: 90 1RF fluticasone furoate-vilanterol [Breo Ellipta] 100-25 mcg/dose blister with device See Rx Instructions .ROUTE .COMPLEX Qty: 60 0RF Dose Instruction: INHALE 1 PUFF BY MOUTH DAILY Rx Instructions: INHALE 1 PUFF BY MOUTH DAILY aspirin 81 mg Tablet,Chewable 81 mg PO QAM citalopram 10 mg Tablet 10 mg PO BEDTIME atorvastatin 20 mg tablet 20 mg PO QAM trazodone 100 mg tablet 100 mg PO BEDTIME montelukast 10 mg tablet 10 mg PO DAILY PRN (Reason: Allergy Symptoms) Lasix 20 mg tablet 20 mg PO DAILY Qty: 30 0RF Cardizem LA 240 mg tablet extended release 24 hr 240 mg PO DAILY Qty: 30 0RF Discharge Orders: Discharge ED (Routine); Ordered 04/04/24 Ordered By: Alfonso Kelly Referrals: Vikram Ly MD [Physician] - 4-7 days Royer Fontaine MD [Primary Care Provider] - Discharge Diet: Advance as tolerated Discharge Activity: Resume usual activity Patient Instructions: Biliary Colic (ED), Gallstones (ED), Opioid Safety Coding Level of Care Code ED Marketing Admin for Jon Hunter
[2024-04-04 20:53] LABS: Basophils # 0.1 10^3/uL (0.0-0.1); Basophils % 0.4 %; Eosinophils # 0.2 10^3/uL (0.0-0.8); Eosinophils % 1.3 %; Hematocrit 50.4 % (37-53); Lymphocytes # 2.9 10^3/uL (0.8-4.8); Lymphocytes % 21.9 %; Mean Corpuscular Hemoglobin 28.7 pg (27-33); Mean Corpuscular Volume 92.8 fl (82-101); Mean Platelet Volume 10.4 fL (7.4-10.4); Monocytes # 0.9 10^3/uL (0.2-0.9); Monocytes % 6.3 %; Neutrophils # 9.35 10^3/uL (1.8-7.7); Neutrophils % 69.8 %; Nucleated Red Blood Cells % 0 %; Platelet Count 264 10^3/cmm (157-399); Red Blood Count 5.43 10^6/uL (3.85-5.65); Red Cell Distribution Width 13.3 % (12.1-15.1); White Blood Count 13.41 10^3/uL (3.29-11.43)
[2024-04-04] MEDS: dilTIAZem 5 mg/mL SDV 5 mL 10 MG IVP (20:57)
[2024-04-04] MEDS: sodium chloride 0.9% 1,000 ML 999 ML IV (20:57)
[2024-04-04 21:05] LABS: INR 1.03 (0.8-1.2)
[2024-04-04 21:09] VITALS: BP 138/79; PULSE 86; RESP 19; O2SAT 96
[2024-04-04 21:10] LABS: Troponin(5th) Baseline 47 ng/L (0-15)
[2024-04-04 21:13] LABS: Alanine Aminotransferase 27 U/L (0-41); Albumin Level 4.3 g/dL (3.5-5.2); Alkaline Phosphatase 142 U/L (40-130); Anion Gap 15.2 (5-19); Aspartate Amino Transferase 31 U/L (0-40); Blood Urea Nitrogen 25 mg/dL (8-23); Calcium 9.6 mg/dL (8.5-10.5); Carbon Dioxide 31 mmol/L (22-29); Chloride 100 mmol/L (98-107); Globulin 3.3 g/dL (1.3-4.6); Glucose 136 mg/dL (65-115); Osmolality Calculated 300 mOsm/kg (285-295); Potassium 4.2 mmol/L (3.5-5.1); Sodium 142 mmol/L (136-145); Total Bilirubin 1.6 mg/dL (0.15-1.2); Total Protein 7.6 g/dL (6.6-8.7)
[2024-04-04 21:27] LABS: Lipase 945 U/L (13-60)
--- NOTE | 2024-04-04 21:39 | CTR_ITS ---
PROCEDURE INFORMATION: Exam: CT Abdomen And Pelvis With Contrast Exam date and time: 04/04/2024 9:50 PM Age: 74 years old Clinical indication: Pain and abnormal findings; Abnormal lab test; Elevated lipase; Abdominal pain; Generalized; Patient HX: Diffuse abd pain with nausea. Lipase of 945. TECHNIQUE: Imaging protocol: Computed tomography of the abdomen and pelvis with contrast. Radiation optimization: All CT scans at this facility use at least one of these dose optimization techniques: automated exposure control; mA and/or kV adjustment per patient size (includes targeted exams where dose is matched to clinical indication); or iterative reconstruction. Contrast material: OMNI 350; Contrast volume: 100 ml; Contrast route: INTRAVENOUS (IV); COMPARISON: CT angio chest w abd pel w con 10/10/2019 2:16 AM RADIATION DOSE METRICS: Total DLP (mGy-cm): 920.84 FINDINGS: Lungs: Trace-small left-sided pleural effusion. Diaphragm: No evidence of diaphragmatic defect. Liver: No focal hepatic lesion. Gallbladder and biliary ducts: There is cholelithiasis. Very mild gallbladder wall edema No grossly inflammatory changes to suggest acute cholecystitis. No intrahepatic or extrahepatic biliary dilatation. Pancreas: Unremarkable. Spleen: Multiple splenic calcifications compatible with sequela of a remote granulomatous process. Otherwise grossly unremarkable. Adrenal glands: Unremarkable. Kidneys and ureters: No renal parenchymal abnormality. No hydronephrosis or ureteral stone. Stomach and bowel: No evidence of bowel obstruction or perienteric inflammatory changes. Appendix: Normal appendix. Intraperitoneal space: No evidence of free air or fluid collection. Vasculature: Extensive aortobiiliac atherosclerosis without aneurysmal dilatation or dissection. The celiac trunk, SMA and RICARDO are grossly patent. Moderate narrowing of the proximal SMA secondary to atherosclerotic plaque. Consider follow-up outpatient vascular evaluatiion. No evidence of IVC thrombus. The portal vein, SMV and splenic veins are grossly patent. Lymph nodes: No adenopathy. Urinary bladder: Mild diffuse bladder wall thickening/haziness. Otherwise grossly unremarkable. Reproductive: Grossly unremarkable. Bones/joints: No evidence of acute fracture or aggressive osseous lesion. Moderate multilevel spondylosis of the lumbar spine with facet arthrosis and osteophytosis. Moderate-severe L3-L4 and L4-L5 central stenosis. Consider correlation with follow-up outpatient MRI to evaluate for neural impingement. Soft tissues: No evidence of fluid collection or hematoma in the superficial soft tissues. CT/CT abdomen pelvis w con* [id number] IMPRESSION: 1. Cholelithiasis with very mild gallbladder wall edema, raising the question of symptomatic cholelithiasis. Consider correlation with biliary labs and right upper quadrant ultrasound. 2. Possible cystitis. 3. Extensive atherosclerosis with moderate narrowing of the proximal SMA. Consider follow-up outpatient vascular evaluatiion.
[2024-04-04] MEDS: iohexol 350 mg/mL 500 mL Btl (per mL) IV (21:51)
[2024-04-04 22:05] VITALS: BP 121/59; PULSE 94; RESP 22; O2SAT 94
[2024-04-04 22:40] LABS: Troponin 5 2HR 42.33 ng/L (0-15)
[2024-04-04 22:50] LABS: Troponin 5 2HR Delta -4.67 ABS# (0-10)
[2024-04-04 22:53] VITALS: BP 131/87; PULSE 99; RESP 22; O2SAT 93
[2024-04-04 23:49] VITALS: BP 136/79; PULSE 97; O2SAT 94
--- NOTE | 2024-04-06 08:50 | DCPLANNER ---
messaged gen surg for er f/u
== END 2024-04-04 23:50 | disposition home or self-care (01) ==
PROVIDERS: Emergency Provider Emergency Medicine; PCP Family Medicine
DX: K80.70 Calculus of gallbladder and bile duct without cholecystitis without obstruction (principal); I48.91 Unspecified atrial fibrillation; Z79.01 Long term (current) use of anticoagulants; Z79.82 Long term (current) use of aspirin; F17.210 Nicotine dependence, cigarettes, uncomplicated; E11.9 Type 2 diabetes mellitus without complications; I10 Essential (primary) hypertension; J44.9 Chronic obstructive pulmonary disease, unspecified; I25.10 Atherosclerotic heart disease of native coronary artery without angina pectoris
CPT/HCPCS: 36415; 71045; 74177; 80053; 83690; 84484; 85025; 85610; 93005; 96374; 99285; J3490; J7030

== ENCOUNTER → 2024-04-07 09:16 | Outpatient (BNVA) | payer MEDICARE, SELFPAY | PROVIDERS: PCP Family Medicine; Referring Provider Emergency Medicine; Visit Provider Student in an Organized Health Care Education/Training Program | DX: K80.20 Calculus of gallbladder without cholecystitis without obstruction (principal) | CPT/HCPCS: 99204 ==

== ENCOUNTER → 2024-04-23 08:05 | Outpatient (BNVA) | payer MEDICARE, SELFPAY | PROVIDERS: PCP Family Medicine; Visit Provider Podiatrist Foot & Ankle Surgery | DX: L60.3 Nail dystrophy (principal); L84 Corns and callosities; I73.9 Peripheral vascular disease, unspecified; G63 Polyneuropathy in diseases classified elsewhere; E11.69 Type 2 diabetes mellitus with other specified complication | CPT/HCPCS: 11056; 11721 ==

== ENCOUNTER 2024-05-07 13:26 | Outpatient (CLI) | payer MEDICARE, SELFPAY ==
--- NOTE | 2024-05-07 13:33 | MR_ITS ---
WS: [id number] MRI LUMBAR SPINE NONCONTRAST TECHNIQUE: Sagittal T1, T2 and STIR imaging. Axial T1 and T2 imaging. CLINICAL INFORMATION: LUMBAR RADICULOPATHY COMPARISON: None. FINDINGS: Mild lumbar curve. No acute compression. Mild disc bulging at L2-L3 L3-L4 and L4-L5. Tiny disc protru sions in the cervical spine at C3-C4 and C4-C5. L1-L2: Mild facet arthropathy. Spinal canal and foramen are patent. L2-L3: Mild annular bulging. Narrowing of the RIGHT subarticular recess. Mild facet arthropathy. Mild RIGHT foraminal narrowing. L3-L4: Mild annular bulging. Mild central canal stenosis. Moderate facet arthropathy. Mild bilateral foraminal narrowing. L4-L5: Mild annular bulging. Slight narrowing of the LEFT subarticular recess. Moderate facet arthrop athy. Moderate LEFT and mild RIGHT foraminal narrowing. L5-S1: Mild annular bulging. Slight impingement traversing RIGHT S1 nerve root in the subarticular re cess. Moderate facet arthropathy. Mild RIGHT and no significant LEFT foraminal narrowing. Visualized pelvic bony structures: Normal. Paravertebral soft tissues: Normal. MR/MR lumbar spine wo con* [id number] IMPRESSION: 1. Mild lumbar curve. No acute compression. Disc bulging worse at L3-L4 L4-L5. 2. Disc bulging L3-4 with mild central canal stenosis. Impingement traversing RIGHT L4 nerve root in the subarticular recess. Small RIGHT foraminal protrusio n slightly impinges the exiting RIGHT L3 nerve root. 3. Mild to moderate LEFT L4-5 foraminal narrowing impinges the exiting LEFT L4 nerve root. Disc bulge L4-5 impinges the traversing LEFT L5 nerve root in the subarticular recess. 4. Disc bulging L5-S1 with slight contact RIGHT S1 nerve root and mild to mode rate RIGHT foraminal narrowing. 5. Disc bulging L2-3 with slight narrowing the RIGHT subarticular recess and m ild RIGHT foraminal narrowing. 6. Small central protrusions of the cervical spine childcare worker imaging at C3-C4 and C4-C5.
== END 2024-05-07 13:27 | disposition home or self-care (01) ==
LOC: RAD 13:27
PROVIDERS: PCP Family Medicine; Visit Provider Physician Assistant
DX: M47.896 Other spondylosis, lumbar region (principal); M48.061 Spinal stenosis, lumbar region without neurogenic claudication; M48.07 Spinal stenosis, lumbosacral region; M51.16 Intervertebral disc disorders with radiculopathy, lumbar region; M51.17 Intervertebral disc disorders with radiculopathy, lumbosacral region
CPT/HCPCS: 72148

== ENCOUNTER 2024-05-25 09:29 | Outpatient (CLI) | payer MEDICARE, SELFPAY ==
--- NOTE | 2024-05-25 09:36 | CT_ITS ---
WS: [id number] LDCT LUNG CANCER SCREENING HISTORY: NICOTINE DEPENDENCE TECHNIQUE: Axial imaging performed from the apices to 1 cm below the costophrenic angles. Coronal and sagittal reformats are submitted with axial MIP series. All CT scans at [facility] use at least one of these dose optimization techniques: automated exposure control; mA and/or kV adjustment per patient size (includes targeted exams where dose is matched to clinical indication); or iterativ e reconstruction. DLP: 117.81 mGy.cm DIvol: Mean CTDIvol: 2.80 (mGy) COMPARISON: 05/01/2023 Diagnostic quality: Satisfactory Lungs: Benign calcified granuloma LEFT lower lobe. No suspicious masses or nodules or endobronchial l esions. Stable LEFT pleural thickening. Heart: Mild cardiomegaly. Extensive heavy coronary artery calcification.. Other findings: Moderate atherosclerosis aorta. Pulmonary artery size is slightly large. No adenopath y. Cholelithiasis. LEFT adrenal adenoma. Splenic granulomata. CT/CT lung screening [id number] IMPRESSION: LUNG-RADS: 1-Negative FOLLOW UP: 12 Month: Continue annual screening with LDCT OTHER FINDINGS (S MODIFIER): None.
== END 2024-05-25 09:30 | disposition home or self-care (01) ==
LOC: RAD 09:31
PROVIDERS: PCP Physician Assistant; Visit Provider Physician Assistant
DX: Z12.2 Encounter for screening for malignant neoplasm of respiratory organs (principal); F17.210 Nicotine dependence, cigarettes, uncomplicated; J84.10 Pulmonary fibrosis, unspecified; J92.9 Pleural plaque without asbestos; I51.7 Cardiomegaly; I25.10 Atherosclerotic heart disease of native coronary artery without angina pectoris; I70.0 Atherosclerosis of aorta; I77.89 Other specified disorders of arteries and arterioles; I28.9 Disease of pulmonary vessels, unspecified; K80.20 Calculus of gallbladder without cholecystitis without obstruction; D35.02 Benign neoplasm of left adrenal gland; R93.89 Abnormal findings on diagnostic imaging of other specified body structures
CPT/HCPCS: 71271

== ENCOUNTER → 2024-07-08 13:31 | Outpatient (BNVA) | payer MEDICARE, SELFPAY | PROVIDERS: PCP Physician Assistant; Visit Provider Podiatrist Foot & Ankle Surgery | DX: E11.42 Type 2 diabetes mellitus with diabetic polyneuropathy (principal); L60.3 Nail dystrophy; L84 Corns and callosities; I73.9 Peripheral vascular disease, unspecified | CPT/HCPCS: 11721 ==

== ENCOUNTER 2024-08-08 07:51 | Observation (INO) | payer MEDICARE, SELFPAY ==
[2024-08-08] VITALS (26 sets, daily range): BP systolic 96–146; BP diastolic 58–99; PULSE 85–132; RESP 14–25; TEMP 36.4–37.2; O2SAT 92–99; BMI 35.2
--- NOTE | 2024-08-08 07:57 | XRR_ITS ---
PROCEDURE INFORMATION: Exam: XR Chest Exam date and time: 08/08/2024 8:03 AM Age: 74 years old Clinical indication: Shortness of breath TECHNIQUE: Imaging protocol: Radiologic exam of the chest. Views: 1 view. COMPARISON: CT lung screening [id number] 05/25/2024 9:46 AM FINDINGS: Lungs: Unremarkable. No consolidation. Pleural spaces: Unremarkable. No pleural effusion. No pneumothorax. Heart/Mediastinum: Unremarkable. No cardiomegaly. Bones/joints: Unremarkable. XR/XR chest 1V portable [id number] IMPRESSION: No acute findings.
--- NOTE | 2024-08-08 07:58 | ECG_ITS ---
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1950 Requested By: Neli Riley Order Number: [id number] Ariana MD: FRANKY CAMACHO Measurements Intervals [place] Rate: 126 P: 0 SC: 0 QRS: 45 QRSD: 102 T: 29 QT: 306 QTc: 443 Interpretive Statements ATRIAL FIBRILLATION WITH RAPID VENTRICULAR RESPONSE MINIMAL ST DEPRESSION [0.025+ mV ST DEPRESSION] ABNORMAL RHYTHM ECG Compared to ECG 04/04/2024 20:29:57 ST (T wave) deviation now present Ventricular premature complex(es) no longer present Aberrant conduction of supraventricular beat(s) no longer present T-wave abnormality no longer present Electronically Signed On 08-16-2024 21:46:35 CDT by FRANKY CAMACHO [id number]
--- NOTE | 2024-08-08 08:05 | W.ED.SOB ---
HPI - SOB/Dyspnea General: Chief Complaint: Shortness of Breath/Dyspnea Stated Complaint: sob, dizziness Time Seen by Provider: 08/08/24 08:01 History of Present Illness: HPI Narrative: 74-year-old man with history of COPD, tobacco dependence and A-fib who presents to the emergency room with shortness of breath and lower extremity swelling. He says this been going on and a worsening way for about a week. He had gone to clinic and they sent him to the emergency room for heart rate issues. He says he does take a diuretic but he does not think he takes any medicines for atrial fibrillation. However I see Eliquis listed in his medication list. No chest pain. No altered mental status. No fevers. Some cough. Related Data Home Medications ?Medication ?Instructions ?Recorded ?Confirmed atorvastatin 20 mg tablet 20 mg PO QAM 10/11/19 07/08/24 citalopram 10 mg tablet 10 mg PO BEDTIME 10/11/19 07/08/24 montelukast 10 mg tablet 10 mg PO DAILY PRN Allergy Symptoms 10/11/19 07/08/24 trazodone 100 mg tablet 100 mg PO BEDTIME 10/11/19 07/08/24 aspirin 81 mg chewable tablet 81 mg PO QAM 11/03/19 07/08/24 Previous Rx's ?Medication ?Instructions ?Recorded Diabetic shoes #1 ea 03/22/23 apixaban 5 mg tablet (Eliquis) 5 mg PO BID #90 tabs 04/24/23 diltiazem HCl 240 mg 240 mg PO DAILY #30 tabs 09/16/23 tablet,extended release 24 hr (Cardizem LA) furosemide 20 mg tablet (Lasix) 20 mg PO DAILY #30 tabs 09/16/23 ipratropium 0.5 mg-albuterol 3 mg 3 ml inhalation TID #180 mL 10/02/23 (2.5 mg base)/3 mL nebulization soln amoxicillin 500 mg-potassium 1 tab PO BID #14 tabs 04/04/24 clavulanate 125 mg tablet (Augmentin) hydrocodone 5 mg-acetaminophen 325 1 tab PO Q6H PRN pain #14 tabs 04/04/24 mg tablet ondansetron 4 mg disintegrating 4 mg PO Q6H PRN nausea and 04/04/24 tablet vomiting #14 tabs fluticasone furoate 100 See Rx Instructions .Route 04/27/24 mcg-vilanterol 25 mcg/dose .COMPLEX #60 ea inhalation powder (Breo Ellipta) oxybutynin chloride 5 mg tablet 5 mg PO DAILY #30 tabs 06/15/24 Allergies Allergy/AdvReac Type Severity Reaction Status Date / Time No Known Allergies Allergy Verified 07/08/24 14:14 Review of Systems Narrative: Constitutional symptoms: Negative except as documented in HPI. Skin symptoms: Negative except as documented in HPI. Eye symptoms: Negative except as documented in HPI. ENMT symptoms: Negative except as documented in HPI. Respiratory symptoms: Negative except as documented in HPI. Cardiovascular symptoms: Negative except as documented in HPI. Gastrointestinal symptoms: Negative except as documented in HPI. Genitourinary symptoms: Negative except as documented in HPI. Musculoskeletal symptoms: Negative except as documented in HPI. Neurologic symptoms: Negative except as documented in HPI. Psychiatric symptoms: Negative except as documented in HPI. Endocrine symptoms: Negative except as documented in HPI. [facility] ED PFSH: Medical History Atrial fibrillation Ischemic cardiomyopathy EF 45% Obstructive sleep apnea Unable to tolerate CPAP CAD (coronary atherosclerotic disease) GERD (gastroesophageal reflux disease) DM type 2 (diabetes mellitus, type 2) Depression Anxiety Hypertension COPD (chronic obstructive pulmonary disease) Surgical History Hx of tonsillectomy H/O foot surgery History of carpal tunnel surgery H/O cardiac catheterization Stent 1998 Family History Other Diabetes Denies family history of Liver disease CAD (coronary artery disease) Aneurysm Autoimmune disease Clotting disorder Dementia Heart disease Hyperlipidemia Psychiatric illness Chronic kidney disease (CKD) Bleeding disorder Lung disease Cancer Hypertension Thyroid disease Stroke Social History Smoking and tobacco/nicotine status: current every day tobacco/nicotine user cigarettes Packs smoked per day: 1 Years cigarettes smoked: 50 Alcohol intake: former Substance/Drug Use: never Household members: spouse and family Housing: House Current occupational status: retired Physical Exam Narrative: EXAM NARRATIVE: General: Alert, no acute distress. Skin: Warm, dry. Head: Normocephalic, atraumatic. Neck: Supple, trachea midline. Eye: Extraocular movements are intact. Ears, nose, mouth and throat: Oral mucosa moist. Cardiovascular: Tachycardic, irregular, Normal peripheral perfusion. 2+ pitting edema with venous stasis dermatitis Respiratory: some expiratory wheeze, mild increased wob, breath sounds are equal, Symmetrical chest wall expansion. Gastrointestinal: Soft, Nontender, Non distended, Normal bowel sounds. Musculoskeletal: Normal ROM, no deformity. Neurological: Alert and oriented, No focal neurological deficit observed. Psychiatric: Cooperative, appropriate mood & affect. Course Vital Signs: Vital signs: Vital Signs Temperature 97.6 F 08/08/24 08:01 Pulse Rate 109 H 08/08/24 08:42 Respiratory Rate 18 08/08/24 08:15 Blood Pressure 125/85 08/08/24 08:42 Pulse Oximetry 94 08/08/24 08:42 Oxygen Delivery Me thod Room Air 08/08/24 08:42 MDM - SOB/Dyspnea Medical Decision Making Differential diagnosis for patient with shortness of breath includes but is not limited to and based on the above HPI, review of systems and physical exam: Pneumonia. Bronchitis. Asthma or COPD with acute exacerbation. Acute coronary syndrome / LA. Pulmonary embolism. Anxiety. Congestive heart failure. Viral infections including influenza and Covid-19. Atrial fibrillation. Anxiety. Pleural effusion. Pneumothorax. Orders placed to evaluate differential diagnosis based on the above differential, HPI and physical exam EKG: a time 7:58 AM. Rate 126. Trial fibrillation with rapid ventricular response, No ST-T changes, no ectopy, This was reviewed and interpreted by myself the ER physician that 8:02 AM AB.4 with an O2 sat of 90% on room air Chest x-ray: Stable cardiomegaly. No acute process. No infiltrate. No pneumothorax. This was reviewed and interpreted by myself the emergency room physician. I also reviewed the radiology report. Lab Review: Laboratory results were reviewed and interpreted by myself the emergency room physician. No leukocytosis. No anemia. No new renal failure. proBNP is elevated around 1999 but it has been higher in the past. Troponin is at or near his baseline at 51. Repeat is pending at the time of admission. Repeat EKG: Time 1004. Rate 114. Atrial fibrillation with rapid ventricular response, No ST-T changes, no ectopy, This was reviewed and interpreted by myself the ER physician at 1006. Rate has decreased from 126 to 114. I reviewed the patient's medical record. Reexamination: Still with some mild wheeze. Patient requests a breathing treatment. Heart rate has slowed some at rest but with any activity bounces up into the 120s and 130s. Consultation: I spoke with Dr. Burton who is on-call for the hospitalist service who agrees to admission. Assessment and plan: A-fib with RVR COPD Edema Congestive heart failure Tobacco dependence ?Diltiazem drip and bolus. IV Lasix. P.o. [place]. DuoNeb updraft. -I discussed the patient with the hospitalist on-call who is admitting the patient. - Discussed findings and plan with patient. Answered any questions. - All laboratory values were reviewed and interpreted personally by myself, the ER physician - All imaging was reviewed and interpreted personally by myself, the ER physician. - Evaluation and treatment of this problem were appropriate in the emergency setting Lab Data 08/08/24 08:03 08/08/24 08:03 Labs/Radiology: Radiology Impressions Chest X-Ray 08/08/24 07:57 IMPRESSION: No acute findings. Laboratory Results WBC 10.70 10^3/uL (3.29-11.43) 08/08/24 08:03 RBC 5.66 10^6/uL (3.85-5.65) H 08/08/24 08:03 Hgb 15.80 g/dL (11.27-16.99) 08/08/24 08:03 Hct 50.7 % (37-53) 08/08/24 08:03 MCV 89.6 fl (82-101) 08/08/24 08:03 MCH 27.9 pg (27-33) 08/08/24 08:03 MCHC 31.2 g/dL (30-55) 08/08/24 08:03 RDW 15.3 % (12.1-15.1) H 08/08/24 08:03 Plt Count 215 10^3/cmm (157-399) 08/08/24 08:03 MPV 9.9 fL (7.4-10.4) 08/08/24 08:03 Neut % (Auto) 62.5 % 08/08/24 08:03 Lymph % (Auto) 25.2 % 08/08/24 08:03 Taylor % (Auto) 9.8 % 08/08/24 08:03 Eos % (Auto) 1.4 % 08/08/24 08:03 Baso % (Auto) 0.7 % 08/08/24 08:03 Neut # (Auto) 6.69 10^3/uL (1.8-7.7) 08/08/24 08:03 Lymph # (Auto) 2.7 10^3/uL (0.8-4.8) 08/08/24 08:03 Taylor # (Auto) 1.1 10^3/uL (0.2-0.9) H 08/08/24 08:03 Eos # (Auto) 0.2 10^3/uL (0.0-0.8) 08/08/24 08:03 Baso # (Auto) 0.1 10^3/uL (0.0-0.1) 08/08/24 08:03 Nucleated RBC % (auto) 0 % 08/08/24 08:03 Nucleated RBCs # 0.0 /100WBC 08/08/24 08:03 Specimen Type Arterial 08/08/24 08:01 Sample Site Brachial, right 08/08/24 08:01 ABG pH 7.40 (7.35-7.45) 08/08/24 08:01 ABG pCO2 46.3 mmHg (35-45) H 08/08/24 08:01 ABG pO2 70.7 mmHg (80.0-100.0) L 08/08/24 08:01 ABG PO2/FiO2 Ratio 336 08/08/24 08:01 ABG HCO3 28.7 mmol/L (22-26) H 08/08/24 08:01 ABG O2 Saturation 95.3 08/08/24 08:01 ABG Base Excess 3.1 mmol/L (-2.0-2.0) H 08/08/24 08:01 Joseluis Test Pos 08/08/24 08:01 A-a O2 Gradient 2.8 mmHg (5-10) L 08/08/24 08:01 Hematocrit 46.3 % (42-52) 08/08/24 08:01 Hgb O2 Saturation 90.3 % (95-100) L 08/08/24 08:01 Carboxyhemoglobin 5.3 %THgb (0.4-20.1) 08/08/24 08:01 Methemoglobin 0.0 % (0.4-1.5) L 08/08/24 08:01 Total Hemoglobin 15.1 g/dL (14-18) 08/08/24 08:01 Sodium 139.0 mmol/L (131-143) 08/08/24 08:01 Potassium 4.2 mmol/L (3.5-5.0) 08/08/24 08:01 Glucose 93.0 mg/dL (70-115) 08/08/24 08:01 Ionized Calcium 1.2 mmol/L (1.1-1.4) 08/08/24 08:01 O2 Delivery Device Room air 08/08/24 08:01 FiO2 21.0 % 08/08/24 08:01 Clinical Project Assistant ID [place] 08/08/24 08:01 Sodium 139 mmol/L (136-145) 08/08/24 08:03 Potassium 4.5 mmol/L (3.5-5.1) 08/08/24 08:03 Chloride 99 mmol/L (98-107) 08/08/24 08:03 Carbon Dioxide 28 mmol/L (22-29) 08/08/24 08:03 Anion Gap 16.5 (5-19) 08/08/24 08:03 BUN 19 mg/dL (8-23) 08/08/24 08:03 Creatinine 1.0 mg/dL (0.7-1.2) 08/08/24 08:03 GFR Calculation Not Reportable 08/08/24 08:03 Glucose 97 mg/dL (65-115) 08/08/24 08:03 Calculated Osmolality 290 mOsm/kg (285-295) 08/08/24 08:03 Calcium 9.2 mg/dL (8.5-10.5) 08/08/24 08:03 Total Bilirubin 1.3 mg/dL (0.15-1.2) H 08/08/24 08:03 AST 17 U/L (0-40) 08/08/24 08:03 ALT 17 U/L (0-41) 08/08/24 08:03 Alkaline Phosphatase 120 U/L (40-130) 08/08/24 08:03 Troponin T Baseline 51 ng/L (0-15) H 08/08/24 08:03 NT-Pro-B Natriuret Pep 1835 pg/mL (0-125) H 08/08/24 08:03 Total Protein 7.7 g/dL (6.6-8.7) 08/08/24 08:03 Albumin 4.4 g/dL (3.5-5.2) 08/08/24 08:03 Globulin 3.3 g/dL (1.3-4.6) 08/08/24 08:03 Amorphous Sediment Not Reportable 08/08/24 09:52 Influenza A (PCR) Negative (Negative) 08/08/24 08:03 Influenza Type B (PCR) Negative (Negative) 08/08/24 08:03 RSV (PCR) Negative (Negative) 08/08/24 08:03 SARS-CoV-2 (PCR) Negative (Negative) 08/08/24 08:03 All radiology interpretation(s) finalized by discharge Discharge Plan Discharge Patient Disposition: Admitted As Inpatient Clinical Impression: Atrial fibrillation with rapid ventricular response, COPD (chronic obstructive pulmonary disease), Congestive heart failure, Tobacco dependence, Edema Condition: Stable Coding Level of Care Code ED Parking Meter Collector for Jon Hunter
[2024-08-08 08:12] LABS: Basophils # 0.1 10^3/uL (0.0-0.1); Basophils % 0.7 %; Eosinophils # 0.2 10^3/uL (0.0-0.8); Eosinophils % 1.4 %; Hematocrit 50.7 % (37-53); Lymphocytes # 2.7 10^3/uL (0.8-4.8); Lymphocytes % 25.2 %; Mean Corpuscular HGB Conc 31.2 g/dL (30-55); Mean Corpuscular Hemoglobin 27.9 pg (27-33); Mean Corpuscular Volume 89.6 fl (82-101); Mean Platelet Volume 9.9 fL (7.4-10.4); Monocytes # 1.1 10^3/uL (0.2-0.9); Monocytes % 9.8 %; Neutrophils # 6.69 10^3/uL (1.8-7.7); Neutrophils % 62.5 %; Nucleated Red Blood Cells % 0 %; Platelet Count 215 10^3/cmm (157-399); Red Blood Count 5.66 10^6/uL (3.85-5.65); Red Cell Distribution Width 15.3 % (12.1-15.1)
[2024-08-08 08:12] LABS: ABG PCO2 46.3 mmHg (35-45); Alveolar-Arterial Oxygen Gradi 2.8 mmHg (5-10); Arterial Blood Gas Hematocrit 46.3 % (42-52); Base Excess ABG 3.1 mmol/L (-2.0-2.0); Blood Gas Allen Test Pos; Blood Gas Operator Identificat WALCI; Blood Gas Sample Site Brachial, right; Blood Gas Sample Type Arterial; Carboxyhemoglobin 5.3 %THgb (0.4-20.1); HCO3 ABG 28.7 mmol/L (22-26); HGB O2 Sat 90.3 % (95-100); Ionized Calcium Level - ABG 1.2 mmol/L (1.1-1.4); Oxygen Device ROOM AIR; Oxygen Saturation ABG 95.3; PO2 ABG 70.7 mmHg (80.0-100.0); PO2 FiO2 Ratio Arterial Blood 336; Potassium Level - ABG 4.2 mmol/L (3.5-5.0); Total Hemoglobin 15.1 g/dL (14-18)
[2024-08-08 08:33] LABS: Troponin(5th) Baseline 51 ng/L (0-15)
[2024-08-08 08:43] LABS: Alanine Aminotransferase 17 U/L (0-41); Albumin Level 4.4 g/dL (3.5-5.2); Alkaline Phosphatase 120 U/L (40-130); Anion Gap 16.5 (5-19); Aspartate Amino Transferase 17 U/L (0-40); Blood Urea Nitrogen 19 mg/dL (8-23); Calcium 9.2 mg/dL (8.5-10.5); Carbon Dioxide 28 mmol/L (22-29); Chloride 99 mmol/L (98-107); Globulin 3.3 g/dL (1.3-4.6); Glucose 97 mg/dL (65-115); NT Pro B Type Natriuretic Pept 1835 pg/mL (0-125); Osmolality Calculated 290 mOsm/kg (285-295); Potassium 4.5 mmol/L (3.5-5.1); Sodium 139 mmol/L (136-145); Total Bilirubin 1.3 mg/dL (0.15-1.2); Total Protein 7.7 g/dL (6.6-8.7)
[2024-08-08 08:51] LABS: Influenza A NEGATIVE (Negative); Influenza B NEGATIVE (Negative); Respiratory Syncytial Virus Ce NEGATIVE (Negative); SARS-CoV-2 PCR NEGATIVE (Negative)
--- NOTE | 2024-08-08 10:04 | ECG_ITS ---
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
[2024-08-08 10:07] LABS: Urine Appearance Clear (CLEAR); Urine Color Dark Yellow (Yellow); pH Urine 6 (5-7)
[2024-08-08 10:08] LABS: Bilirubin Urine Neg (Negative); Blood Urine 2+ (Negative); Glucose Urine UA Norm (Normal); Ketones Urine Negative (Negative); Leukocyte Esterase Urine 2+ (Negative); Nitrate Urine Negative (Negative); Protein Urine 1+ (Negative); Urobilinogen Urine 1 mg/dL (Negative)
[2024-08-08 10:09] LABS: Bacteria Urine Trace /hpf; Hyaline Casts Urine 4.11 /lpf; Squamous Epithelial Cell Urine 0-5 /hpf (0-5); WBC Urine 51-100 /hpf (0-5)
[2024-08-08] MEDS: ipratropium-albuterol 3 mL Neb INHALATION (10:13)
[2024-08-08 10:18] LABS: Add Urine Culture? Yes
[2024-08-08] MEDS: dilTIAZem 5 mg/mL SDV 5 mL 10 MG IVP (10:30)
[2024-08-08] MEDS: FUROsemide 10 mg/mL SDV 4mL 40 MG IVP ×2 (10:37→18:57)
[2024-08-08 10:40] LABS: Troponin 5 2HR 46.93 ng/L (0-15)
[2024-08-08] MEDS: cefTRIAXone 1,000 mg SDV 1000 MG IVP (10:44)
[2024-08-08 10:49] LABS: Troponin 5 2HR Delta -4.07 ABS# (0-10)
[2024-08-08] MEDS: dilTIAZem 100 MG in sodium chloride 0.9% (add-van) 100 ML IV (10:54)
[2024-08-08] MEDS: HYDROcodone-acetaminophen 5-325 mg Tablet 1 TAB PO ×2 (10:57→18:35)
--- NOTE | 2024-08-08 12:38 | PM.HP ---
Providers/Chief Complaint Admitting Physician: Dg Burton DO Primary Care Provider: Kacey Chew Chief Complaint: sob, dizziness History of Present Illness Jasper Savage is a 74 year old male w/ PMH of afib, ischemic cardiomyopathy last EF showing 45%, stripping sleep apnea, CAD, type 2 diabetes, GERD, hypertension, presented to the ER after 5 days of persistent lower extremity swelling, shortness of breath, elevated heart rate. He was seen earlier this morning at the urgent care and was referred to the ER for further workup. Upon presentation to the ER his heart rate was 120-130 range. His blood pressure was noted to be normal at this time. He did endorse having shortness of breath, and what he felt was anterior chest pressure. An initial EKG showed atrial fibrillation with rapid ventricular response, heart rate at that time was 126. He did have minimal ST depression noted on his EKG. He was started on diltiazem drip. His second EKG was unchanged with exception of heart rate which trended down to 114. BNP was 1835, troponins were elevated but without delta. He did have an elevated bilirubin, which appears chronic for him. Currently at 1.3. Urinalysis was also performed which did show large amount of white blood cells, leuk esterase, and blood. This was also sent for culture. He received a dose of ceftriaxone in the ER. Review of Systems General: Reports: 10 or more systems reviewed and unremarkable except in HPI and below Medications/Allergies Home Medications ?Medication ?Instructions ?Recorded ?Confirmed ?Last Taken ?Type atorvastatin 20 mg tablet 20 mg PO QAM 10/11/19 08/08/24 08/07/24 History trazodone 100 mg tablet 100 mg PO BEDTIME 10/11/19 08/08/24 08/07/24 History Diabetic shoes #1 ea 03/22/23 08/08/24 Unknown Rx apixaban 5 mg tablet (Eliquis) 5 mg PO BID #90 tabs 04/24/23 08/08/24 08/07/24 Rx diltiazem HCl 240 mg 240 mg PO DAILY #30 tabs 09/16/23 08/08/24 08/07/24 Rx tablet,extended release 24 hr (Cardizem LA) furosemide 20 mg tablet (Lasix) 20 mg PO DAILY #30 tabs 09/16/23 08/08/2408/07/25 Rx oxybutynin chloride 5 mg tablet 5 mg PO DAILY #30 tabs 06/15/24 08/08/24 08/07/24 Rx albuterol sulfate 2.5 mg/3 mL 2.5 mg inhalation QID 08/08/24 08/08/24 08/07/24 History (0.083 %) solution for nebulization fluticasone furoate 100 1 inh inhalation DAILY 08/08/24 08/08/24 08/07/24 History mcg-vilanterol 25 mcg/dose inhalation powder (Breo Ellipta) Allergies Allergy/AdvReac Type Severity Reaction Status Date / Time No Known Allergies Allergy Verified 07/08/24 14:14 PFSH Acute PFSH: Medical History Atrial fibrillation Ischemic cardiomyopathy EF 45% Obstructive sleep apnea Unable to tolerate CPAP CAD (coronary atherosclerotic disease) GERD (gastroesophageal reflux disease) DM type 2 (diabetes mellitus, type 2) Depression Anxiety Hypertension COPD (chronic obstructive pulmonary disease) Surgical History Hx of tonsillectomy H/O foot surgery History of carpal tunnel surgery H/O cardiac catheterization Stent 1998 Family History Other Diabetes Denies family history of Liver disease CAD (coronary artery disease) Aneurysm Autoimmune disease Clotting disorder Dementia Heart disease Hyperlipidemia Psychiatric illness Chronic kidney disease (CKD) Bleeding disorder Lung disease Cancer Hypertension Thyroid disease Stroke Social History Smoking and tobacco/nicotine status: current every day tobacco/nicotine user cigarettes Packs smoked per day: 1 Years cigarettes smoked: 50 Alcohol intake: former Substance/Drug Use: never Household members: spouse and family Housing: House Current occupational status: retired Vitals/I&O/Wt Last Vital Signs Temp 97.6 F 08/08/24 08:01 Pulse 103 H 08/08/24 11:40 Resp 14 08/08/24 11:30 BP 123/94 08/08/24 11:40 Pulse Ox 94 08/08/24 11:40 O2 Del Method Nasal Cannula 08/08/24 11:30 O2 Flow Rate 1 08/08/24 11:30 08/07/24 08/08/24 08/08/24 22:59 06:59 14:59 Intake Total 6.333 / 6.333 Balance 6.333 / 6.333 Weight last 48 hrs Weight 245 lb Physical Exam Narrative: General: Cooperative patient in no apparent distress. Well developed. HEENT: Normocephalic, Atraumatic. External ears normal. Nasal passages patent without drainage. MMM. Heart: Irregular irregular with elevated Rate. Resp: LCTA. No respiratory distress, no use of accessory muscles. Abd: Soft, non-tender. Non-distended. Extremities: 2+LE edema is going's Skin: Mild erythematous scaling on the feet bilaterally. Data 08/08/24 08:03 08/08/24 08:03 Micro: Microbiology 08/08/24 08:26 Blood Culture - Preliminary Blood SPECIMEN COLLECTED 08/08/24 08:03 Blood Culture - Preliminary Blood SPECIMEN COLLECTED A&P Assessment and plan (1) Atrial fibrillation with rapid ventricular response: (2) Heart failure with reduced ejection fraction: (3) Acute exacerbation of CHF (congestive heart failure): Qualifiers: Heart failure type: systolic Qualified Code(s): I50.23 - Acute on chronic systolic (congestive) heart failure (4) DM type 2 (diabetes mellitus, type 2): Qualifiers: Diabetes mellitus intermediate designer insulin use: without penitentiary use Diabetes mellitus complication status: without complication Qualified Code(s): E11.9 - Type 2 diabetes mellitus without complications (5) Edema: Qualifiers: Edema type: unspecified Qualified Code(s): R60.9 - Edema, unspecified (6) COPD (chronic obstructive pulmonary disease): Qualifiers: COPD type: unspecified COPD Qualified Code(s): J44.9 - Chronic obstructive pulmonary disease, unspecified (7) UTI (urinary tract infection): Qualifiers: Urinary tract infection type: acute cystitis Hematuria presence: with hematuria Qualified Code(s): N30.01 - Acute cystitis with hematuria Plan 74-year-old female admitted today for atrial fibrillation with rapid ventricular response, exacerbation of systolic heart failure, volume overload. - Admit to [facility] for inpatient care. - Currently on diltiazem drip we will maintain this until his heart rate stabilizes. His most recent heart rate was elevated to 107and better controlled. Will switch to oral therapies or possibly beta-garima in the next 1 to 2 days. - Continue Rocephin for UTI with total treatment of at least 3 to 5 days. Urinalysis sent for culture. - He was given a dose of Lasix in the ER as well and he has had good output since. Reports that he has filled his urinal up about 2 times since he was in the ER. Says that his legs do feel like they are not as swollen, and he is breathing better. - Daily Lasix for now. - Daily I's and O's. - He has not had an echo in quite some time. The last in our system was from March 2023. Consider repeat during this today. - Recheck a.m. labs. - A1c next draw. - Will switch back to his oral Diltiazem when rate is stable. Code Status: Full IVF: None DVT PPx: Eliquis GI PPx: None ABx: Rocephin Diet: Regular Discharge plan: Home when appropriate. PDMP PDMP Reviewed: Not Reviewed Attestations Medical Necessity Statement*: Will need inpatient treatment for acute atrial fibrillation with rapid ventricular response, acute exacerbation of congestive heart failure, urinary tract infection requiring IV antibiotics, ongoing labs and cultures, and close monitoring of vitals. Coding Level of Care Code Acute Code for Chg Fwd Moderate MDM includes number and complexity of problems actively addressed during encounter, amount and/or complexity of data reviewed/ordered and described risk of complication, morbidity or mortality of management as documented Diagnoses Atrial fibrillation with rapid ventricular response I48.91 Heart failure with reduced ejection fraction I50.20 Acute on chronic systolic congestive heart failure I50.23 Heart failure type: systolic Type 2 diabetes mellitus without complication, without long-term current use of insulin E11.9 Diabetes mellitus penitentiary insulin use: without penitentiary use Diabetes mellitus complication status: without complication Edema, unspecified type R60.9 Edema type: unspecified Chronic obstructive pulmonary disease, unspecified COPD type J44.9 COPD type: unspecified COPD Acute cystitis with hematuria N30.01 Urinary tract infection type: acute cystitis Hematuria presence: with hematuria
[2024-08-08 14:45] LABS: Troponin 5 6HR 50.21 ng/L (0-15)
[2024-08-08 14:46] LABS: Troponin 5 6HR Delta -0.79 ng/L (0-12)
[2024-08-08] MEDS: albuterol 2.5 mg/3 mL Neb INHALATION ×2 (15:31→20:36)
[2024-08-08] MEDS: guaiFENesin-dextromethorphan UDC 10 mL 5 ML PO (17:33)
[2024-08-08] MEDS: apixaban 5 mg Tablet PO (17:33)
[2024-08-08] MEDS: budesonide 0.5 mg/2 mL Neb INHALATION (20:36)
[2024-08-08] MEDS: trazodone 100 mg Tablet PO (20:39)
[2024-08-09] VITALS (8 sets, daily range): BP systolic 99–122; BP diastolic 69–74; PULSE 94–108; RESP 17–24; TEMP 36.4–37; O2SAT 90–96
[2024-08-09] MEDS: dilTIAZem 100 MG in sodium chloride 0.9% (add-van) 100 ML IV (02:33)
[2024-08-09] MEDS: albuterol 2.5 mg/3 mL Neb INHALATION ×3 (03:45→11:22)
[2024-08-09 03:52] LABS: Basophils # 0.1 10^3/uL (0.0-0.1); Basophils % 0.7 %; Eosinophils # 0.2 10^3/uL (0.0-0.8); Eosinophils % 1.5 %; Hematocrit 50.4 % (37-53); Lymphocytes # 2.1 10^3/uL (0.8-4.8); Lymphocytes % 20.8 %; Mean Corpuscular HGB Conc 30.4 g/dL (30-55); Mean Corpuscular Volume 92.1 fl (82-101); Mean Platelet Volume 9.7 fL (7.4-10.4); Monocytes # 1.1 10^3/uL (0.2-0.9); Monocytes % 10.4 %; Neutrophils # 6.71 10^3/uL (1.8-7.7); Neutrophils % 66.2 %; Nucleated Red Blood Cells % 0 %; Platelet Count 199 10^3/cmm (157-399); Red Blood Count 5.47 10^6/uL (3.85-5.65); Red Cell Distribution Width 15.2 % (12.1-15.1); White Blood Count 10.13 10^3/uL (3.29-11.43)
[2024-08-09 04:31] LABS: Alanine Aminotransferase 14 U/L (0-41); Alkaline Phosphatase 110 U/L (40-130); Anion Gap 12.8 (5-19); Aspartate Amino Transferase 15 U/L (0-40); Blood Urea Nitrogen 22 mg/dL (8-23); Calcium 8.9 mg/dL (8.5-10.5); Carbon Dioxide 34 mmol/L (22-29); Chloride 97 mmol/L (98-107); Chol HDL Ratio 2.71 mg/dL (1.0-5.00); Cholesterol 114 mg/dL (0-200); Globulin 3.4 g/dL (1.3-4.6); Glucose 105 mg/dL (65-115); HDL Cholesterol 42 mg/dL (60-100); LDL Cholesterol Calculated 55 mg/dL (50-129); LDL HDL Ratio 1.31 RATIO (0.00-3.22); Osmolality Calculated 294 mOsm/kg (285-295); Potassium 3.8 mmol/L (3.5-5.1); Sodium 140 mmol/L (136-145); Thyroid Stimulating Hormone 2.01 uIU/mL (0.27-4.20); Total Bilirubin 1.6 mg/dL (0.15-1.2); Total Protein 7.4 g/dL (6.6-8.7); Triglycerides 85 mg/dL (0-150)
[2024-08-09 04:36] LABS: Estmated Average Glucose 123; Hemoglobin A1C 5.9 % (4.0-6.0)
[2024-08-09] MEDS: atorvastatin 40 mg Tablet 20 MG PO (05:06)
[2024-08-09] MEDS: FUROsemide 10 mg/mL SDV 4mL 40 MG IVP (05:06)
[2024-08-09 05:40] LABS: Vitamin B12 401 pg/mL (232-1245)
[2024-08-09] MEDS: apixaban 5 mg Tablet PO (08:26)
[2024-08-09] MEDS: budesonide 0.5 mg/2 mL Neb INHALATION (08:50)
[2024-08-09] MEDS: dilTIAZem ER (24HR) 240 mg Capsule PO (11:50)
[2024-08-09] MEDS: cefTRIAXone 1,000 mg SDV 1000 MG IVP (11:50)
--- NOTE | 2024-08-09 14:29 | PC.NURSE ---
Prescriptions called into [facility] pharmacy and ones sent to [facility] were cancelled. Patient discharged to home. Patient refused home oxygen evaluation and stated I dont need oxygen, Im not going to wear it at home. Patient was discharged with CHF stoplight and heart failure education.
--- NOTE | 2024-08-09 14:30 | P.DS_ITS ---
Discharge Providers Date of Admission: 08/08/24 09:55 Date of Discharge: August 09, 2024 Attending Provider at Admission: Dg Burton DO Attending Provider at Discharge: Dg Burton DO Primary Care Provider: Kacey Chew Diagnoses at Discharge Discharge Diagnosis (1) Atrial fibrillation with rapid ventricular response: Status: Acute (2) Heart failure with reduced ejection fraction: Status: Acute (3) Acute exacerbation of CHF (congestive heart failure): Status: Acute Qualifiers: Heart failure type: systolic Qualified Code(s): I50.23 - Acute on chronic systolic (congestive) heart failure (4) DM type 2 (diabetes mellitus, type 2): Status: Chronic Qualifiers: Diabetes mellitus exterminator helper termite insulin use: without snf use Diabetes mellitus complication status: without complication Qualified Code(s): E11.9 - Type 2 diabetes mellitus without complications (5) Edema: Status: Acute Qualifiers: Edema type: unspecified Qualified Code(s): R60.9 - Edema, unspecified (6) COPD (chronic obstructive pulmonary disease): Status: Acute Qualifiers: COPD type: unspecified COPD Qualified Code(s): J44.9 - Chronic obstructive pulmonary disease, unspecified (7) UTI (urinary tract infection): Status: Acute Qualifiers: Urinary tract infection type: acute cystitis Hematuria presence: with hematuria Qualified Code(s): N30.01 - Acute cystitis with hematuria Reason for Visit Reason for Visit: sob, dizziness Brief History: 74-year-old female past medical history of A-fib, ischemic cardiomyopathy, systolic heart failure, who presented to ER with lower extremity swelling, shortness of breath, elevated heart rate. He had been seen in the urgent care earlier in the morning and was referred to the ER for further workup. Upon presentation to the ER his heart rate was in the 1 20-1 30 range. His blood pressure was slightly elevated at that time, and he was describing anterior chest pain. Cardiac workup was negative. EKG did show atrial fibrillation with RVR. He was started on a diltiazem drip in the ER and his heart rate did improved. He initially had an elevated troponin which trended down upon recheck. Urinalysis was performed and showed a large amount of white blood cells, leuk esterase, and RBCs. He was treated with ceftriaxone in the ER and the urine was sent for culture. Hospital Course Hospital Course He was admitted, started on telemetry, antibiotics were continued. He did receive some breathing treatments which he reports helped with overall respiratory effort. He continued the diltiazem drip overnight and was restarted on his home oral dosing. His heart rate did improve into the 90 bpm range. On day 2 of his hospitalization he was requesting to go home as he was feeling back to his normal self. Discussed with him that he does have a urine culture pending, and that he would need to continue antibiotics for a total of 7 days. He did receive 2 days of Rocephin while in the hospital. Cefdinir was sent to his pharmacy to complete 5 more days. Physical Exam Narrative: General: Cooperative patient in no apparent distress. Well developed. HEENT: Normocephalic, Atraumatic. External ears normal. Nasal passages patent without drainage. MMM. Heart: Irregular irregular. Rate is normal range. Resp: LCTA. No respiratory distress, no use of accessory muscles. Abd: Soft, non-tender. Non-distended. Extremities: 1+ lower extremity edema. Skin: Mild erythematous scaling on the feet bilaterally. Urinary Catheter Management: Kelley: Cath Placed During This Visit: yes Reason for Continuing Indwelling Catheter: Acute Urinary Retention or Obstruction Urinary Catheter Date of Insertion: 08/08/24 Urinary Catheter Time of Insertion: 16:00 Discharge Data Studies Completed and Pending Completed Studies During Hospitalization Category Date Time Status XR chest 1V portable [id number] Stat Exams 08/08/24 07:57 Completed Pending at discharge Category Date Time Status Blood Culture Stat Lab 08/08/24 08:26 Results Urine Culture Stat Lab 08/08/24 09:52 Received Radiology Impressions Chest X-Ray 08/08/24 07:57 IMPRESSION: No acute findings. Laboratory Results WBC 10.13 10^3/uL (3.29-11.43) 08/09/24 03:04 RBC 5.47 10^6/uL (3.85-5.65) 08/09/24 03:04 Hgb 15.30 g/dL (11.27-16.99) 08/09/24 03:04 Hct 50.4 % (37-53) 08/09/24 03:04 MCV 92.1 fl (82-101) 08/09/24 03:04 MCH 28.0 pg (27-33) 08/09/24 03:04 MCHC 30.4 g/dL (30-55) 08/09/24 03:04 RDW 15.2 % (12.1-15.1) H 08/09/24 03:04 Plt Count 199 10^3/cmm (157-399) 08/09/24 03:04 MPV 9.7 fL (7.4-10.4) 08/09/24 03:04 Neut % (Auto) 66.2 % 08/09/24 03:04 Lymph % (Auto) 20.8 % 08/09/24 03:04 [place] % (Auto) 10.4 % 08/09/24 03:04 Eos % (Auto) 1.5 % 08/09/24 03:04 Baso % (Auto) 0.7 % 08/09/24 03:04 Neut # (Auto) 6.71 10^3/uL (1.8-7.7) 08/09/24 03:04 Lymph # (Auto) 2.1 10^3/uL (0.8-4.8) 08/09/24 03:04 [place] # (Auto) 1.1 10^3/uL (0.2-0.9) H 08/09/24 03:04 Eos # (Auto) 0.2 10^3/uL (0.0-0.8) 08/09/24 03:04 Baso # (Auto) 0.1 10^3/uL (0.0-0.1) 08/09/24 03:04 Nucleated RBC % (auto) 0 % 08/09/24 03:04 Nucleated RBCs # 0.0 /100WBC 08/09/24 03:04 Specimen Type Arterial 08/08/24 08:01 Sample Site Brachial, right 08/08/24 08:01 ABG pH 7.40 (7.35-7.45) 08/08/24 08:01 ABG pCO2 46.3 mmHg (35-45) H 08/08/24 08:01 ABG pO2 70.7 mmHg (80.0-100.0) L 08/08/24 08:01 ABG PO2/FiO2 Ratio 336 08/08/24 08:01 ABG HCO3 28.7 mmol/L (22-26) H 08/08/24 08:01 ABG O2 Saturation 95.3 08/08/24 08:01 ABG Base Excess 3.1 mmol/L (-2.0-2.0) H 08/08/24 08:01 Joseluis Test Pos 08/08/24 08:01 A-a O2 Gradient 2.8 mmHg (5-10) L 08/08/24 08:01 Hematocrit 46.3 % (42-52) 08/08/24 08:01 Hgb O2 Saturation 90.3 % (95-100) L 08/08/24 08:01 Carboxyhemoglobin 5.3 %THgb (0.4-20.1) 08/08/24 08:01 Methemoglobin 0.0 % (0.4-1.5) L 08/08/24 08:01 Total Hemoglobin 15.1 g/dL (14-18) 08/08/24 08:01 Sodium 139.0 mmol/L (131-143) 08/08/24 08:01 Potassium 4.2 mmol/L (3.5-5.0) 08/08/24 08:01 Glucose 93.0 mg/dL (70-115) 08/08/24 08:01 Ionized Calcium 1.2 mmol/L (1.1-1.4) 08/08/24 08:01 O2 Delivery Device Room air 08/08/24 08:01 FiO2 21.0 % 08/08/24 08:01 Chain Puller ID [place] 08/08/24 08:01 Sodium 140 mmol/L (136-145) 08/09/24 03:04 Potassium 3.8 mmol/L (3.5-5.1) 08/09/24 03:04 Chloride 97 mmol/L (98-107) L 08/09/24 03:04 Carbon Dioxide 34 mmol/L (22-29) H 08/09/24 03:04 Anion Gap 12.8 (5-19) 08/09/24 03:04 BUN 22 mg/dL (8-23) 08/09/24 03:04 Creatinine 1.0 mg/dL (0.7-1.2) 08/09/24 03:04 GFR Calculation Not Reportable 08/09/24 03:04 Glucose 105 mg/dL (65-115) 08/09/24 03:04 Estimat Average Glucose 123 08/09/24 03:04 Hemoglobin A1c 5.9 % (4.0-6.0) 08/09/24 03:04 Calculated Osmolality 294 mOsm/kg (285-295) 08/09/24 03:04 Calcium 8.9 mg/dL (8.5-10.5) 08/09/24 03:04 Magnesium 2.0 mg/dL (1.7-2.3) 08/09/24 03:04 Total Bilirubin 1.6 mg/dL (0.15-1.2) H 08/09/24 03:04 AST 15 U/L (0-40) 08/09/24 03:04 ALT 14 U/L (0-41) 08/09/24 03:04 Alkaline Phosphatase 110 U/L (40-130) 08/09/24 03:04 Troponin T Baseline 51 ng/L (0-15) H 08/08/24 08:03 Troponin T 120 Minute 46.93 ng/L (0-15) H 08/08/24 10:18 Delta Troponin T -4.07 ABS# (0-10) L 08/08/24 10:18 Troponin T Hi Sens 6Hr 50.21 ng/L (0-15) H 08/08/24 14:20 Troponin T Hi Sens 6Hr Delta -0.79 ng/L (0-12) L 08/08/24 14:20 NT-Pro-B Natriuret Pep 1835 pg/mL (0-125) H 08/08/24 08:03 Total Protein 7.4 g/dL (6.6-8.7) 08/09/24 03:04 Albumin 4.0 g/dL (3.5-5.2) 08/09/24 03:04 Globulin 3.4 g/dL (1.3-4.6) 08/09/24 03:04 Triglycerides 85 mg/dL (0-150) 08/09/24 03:04 Cholesterol 114 mg/dL (0-200) 08/09/24 03:04 LDL Cholesterol, Calc 55 mg/dL (50-129) 08/09/24 03:04 HDL Cholesterol 42 mg/dL (60-100) L 08/09/24 03:04 LDL/HDL Ratio 1.31 RATIO (0.00-3.22) 08/09/24 03:04 Cholesterol/HDL Ratio 2.71 mg/dL (1.0-5.00) 08/09/24 03:04 Vitamin B12 401 pg/mL (232-1245) 08/09/24 03:04 TSH 2.01 uIU/mL (0.27-4.20) 08/09/24 03:04 Urine Color Dark yellow (Yellow) A 08/08/24 09:52 Urine Appearance Clear (CLEAR) 08/08/24 09:52 Urine pH 6 (5-7) 08/08/24 09:52 Ur Specific [place] 1.020 (1.005-1.030) 08/08/24 09:52 Urine Protein 1+ (Negative) H 08/08/24 09:52 Urine Glucose (UA) Norm (Normal) 08/08/24 09:52 Urine Ketones Negative (Negative) 08/08/24 09:52 Urine Blood 2+ (Negative) H 08/08/24 09:52 Urine Nitrate Negative (Negative) 08/08/24 09:52 Urine Bilirubin Neg (Negative) 08/08/24 09:52 Urine Urobilinogen 1 mg/dL (Negative) H 08/08/24 09:52 Ur Leukocyte Esterase 2+ (Negative) H 08/08/24 09:52 Urine RBC 6-10 /hpf (0-2) 08/08/24 09:52 Urine WBC 51-100 /hpf (0-5) H 08/08/24 09:52 Ur Squamous Epith Cells 0-5 /hpf (0-5) 08/08/24 09:52 Amorphous Sediment Not Reportable 08/08/24 09:52 Urine Bacteria Trace /hpf (NONE) 08/08/24 09:52 Hyaline Casts 4.11 /lpf 08/08/24 09:52 Influenza A (PCR) Negative (Negative) 08/08/24 08:03 Influenza Type B (PCR) Negative (Negative) 08/08/24 08:03 RSV (PCR) Negative (Negative) 08/08/24 08:03 SARS-CoV-2 (PCR) Negative (Negative) 08/08/24 08:03 Vitals Last Vital Signs Temp 98.6 F 08/09/24 14:22 Pulse 98 08/09/24 14:22 Resp 18 08/09/24 14:22 BP 111/69 08/09/24 14:22 Pulse Ox 90 08/09/24 14:22 O2 Del Method Nasal Cannula 08/09/24 12:00 O2 Flow Rate 3 08/09/24 11:10 Discharge Plan Discharge Patient Disposition: Home Condition: Stable Prescriptions: New cefdinir 300 mg capsule 300 mg PO BID 5 Days Qty: 10 0RF azithromycin 250 mg tablet See Rx Instructions .ROUTE .COMPLEX Qty: 6 0RF Rx Instructions: For 250 mg dose pack: take 500 mg today (day 1), then 250 mg for 4 days (days 2-5) Continued Eliquis 5 mg tablet 5 mg PO BID Qty: 90 2RF (DME) Diabetic shoes See Rx Instructions .ROUTE .MEDSUPPLY Qty: 1 0RF Rx Instructions: With 3 pairs of inserts made by the shoe [employer] oxybutynin chloride 5 mg tablet 5 mg PO DAILY Qty: 30 0RF atorvastatin 20 mg tablet 20 mg PO QAM trazodone 100 mg tablet 100 mg PO BEDTIME albuterol sulfate 2.5 mg /3 mL (0.083 %) solution for nebulization 2.5 mg inhalation QID fluticasone furoate-vilanterol [Breo Ellipta] 100-25 mcg/dose blister with device 1 inh inhalation DAILY furosemide [Lasix] 20 mg tablet 20 mg PO DAILY Qty: 30 0RF diltiazem HCl [Cardizem LA] 240 mg tablet extended release 24 hr 240 mg PO DAILY Qty: 30 0RF Discharge Orders: Discharge Order (Routine); Ordered 08/09/24 Ordered By: Dg Burton Referrals: Kacey Chew PA [Primary Care Provider] - 7-10 days (Please schedule a follow up within 7-10days) Discharge Diet: Cardiac Discharge Activity: Resume usual activity Patient Instructions: Heart Failure (DC), CHF Stoplight, Opioid Safety Discharge Attestations Time Spent in Discharge Care*: greater than 30 min (42) Specific Discharge Activities: educating patient, discussing with pcp/other providers, documenting/other paperwork and evaluating patient/reviewing data Quality Metrics Clinical Quality Measures [ No reported AMI, CVA or VTE this stay] Coding Level of Care Code Acute Code for Chg Fwd Total time (in minutes) for Discharge: 42 Diagnoses Atrial fibrillation with rapid ventricular response I48.91 Heart failure with reduced ejection fraction I50.20 Acute on chronic systolic congestive heart failure I50.23 Heart failure type: systolic Type 2 diabetes mellitus without complication, without long-term current use of insulin E11.9 Diabetes mellitus exterminator helper termite insulin use: without exterminator helper termite use Diabetes mellitus complication status: without complication Edema, unspecified type R60.9 Edema type: unspecified Chronic obstructive pulmonary disease, unspecified COPD type J44.9 COPD type: unspecified COPD Acute cystitis with hematuria N30.01 Urinary tract infection type: acute cystitis Hematuria presence: with hematuria
== END 2024-08-09 14:29 | disposition home or self-care (01) ==
LOC: ER 09:58 → CSU 11:36
PROVIDERS: Admitting Provider Family Medicine; Emergency Provider Emergency Medicine; PCP Physician Assistant; Visit Provider Family Medicine
DX: I48.91 Unspecified atrial fibrillation (principal); I50.20 Unspecified systolic (congestive) heart failure; I50.23 Acute on chronic systolic (congestive) heart failure; E11.9 Type 2 diabetes mellitus without complications; R60.9 Edema, unspecified; J44.9 Chronic obstructive pulmonary disease, unspecified; N30.01 Acute cystitis with hematuria; Z79.01 Long term (current) use of anticoagulants; K21.9 Gastro-esophageal reflux disease without esophagitis; G47.33 Obstructive sleep apnea (adult) (pediatric); Z83.3 Family history of diabetes mellitus; F17.210 Nicotine dependence, cigarettes, uncomplicated; Z79.82 Long term (current) use of aspirin; E80.7 Disorder of bilirubin metabolism, unspecified
CPT/HCPCS: 36415; 36600; 51702; 71045; 80051; 80053; 80061; 81001; 82330; 82607; 82805; 83036; 83735; 83880; 84443; 84484; 85025; 87040; 87077; 87086; 87186; 87637; 93005; 94640; 96365; 96366; 96375; 99285; G0378; J0696; J1940; J3490; J7613; J7626; J9999

== ENCOUNTER → 2024-08-20 07:23 | Outpatient (BNVA) | payer MEDICARE, SELFPAY | PROVIDERS: PCP Physician Assistant; Referring Provider Physician Assistant; Visit Provider Nurse Practitioner Family | DX: M54.2 Cervicalgia (principal); M54.9 Dorsalgia, unspecified; G89.29 Other chronic pain; F17.210 Nicotine dependence, cigarettes, uncomplicated | CPT/HCPCS: 99214 ==

== ENCOUNTER → 2024-09-15 07:27 | Outpatient (BNVA) | payer MEDICARE, SELFPAY | PROVIDERS: PCP Physician Assistant; Visit Provider Podiatrist Foot & Ankle Surgery | DX: E11.42 Type 2 diabetes mellitus with diabetic polyneuropathy (principal); L60.3 Nail dystrophy; L84 Corns and callosities; I73.9 Peripheral vascular disease, unspecified | CPT/HCPCS: 11056; 11721; 99213 ==

== ENCOUNTER 2024-09-29 08:18 | Observation (INO) | payer MEDICARE, SELFPAY ==
[2024-09-29] VITALS (11 sets, daily range): BP systolic 114–135; BP diastolic 69–86; PULSE 78–120; RESP 15–20; TEMP 36.4–36.9; O2SAT 91–95
--- NOTE | 2024-09-29 08:23 | ECG_ITS ---
[employer] Software Test Date: 2024-09-29 Pat Name: Jasper Savage Department: Room: Gender: Male Radio Station Engineer: : [id number] Requested By: Lj Riley Order Number: [id number] Ariana MD: Hailey Holley M.D. Measurements Intervals [place] Rate: 132 P: 0 TX: 0 QRS: 73 QRSD: 104 T: -11 QT: 314 QTc: 466 Interpretive Statements ATRIAL FIBRILLATION WITH RAPID VENTRICULAR RESPONSE NONSPECIFIC ST & T-WAVE ABNORMALITY Compared to ECG 08/08/2024 10:04:07 No significant changes Electronically Signed On 09-29-2024 17:45:12 CDT by Hailey Holley M.D. [email or web address]
--- NOTE | 2024-09-29 08:37 | XRR_ITS ---
PROCEDURE INFORMATION: Exam: XR Chest Exam date and time: 09/29/2024 8:43 AM Age: 74 years old Clinical indication: Pain; Shortness of breath; Angina pectoris; Additional info: Chest pain TECHNIQUE: Imaging protocol: Radiologic exam of the chest. Views: 1 view. COMPARISON: 1. CR XR chest 2V* [id number] 09/28/2024 10:50 AM 2. CR XR chest 1V portable [id number] 08/08/2024 8:03 AM FINDINGS: Lungs: No new focal infiltrate seen of the lungs. Pleural spaces: No large or obvious pneumothorax nor pleural effusion seen. Heart/Mediastinum: Heart size remains enlarged. Vasculature: Atherosclerotic disease. Bones/joints: Degenerative changes spine. Other findings: Patient appears tilted, rotated slightly to the left. XR/XR chest 1V portable [id number] IMPRESSION: No acute findings seen of the chest.
--- NOTE | 2024-09-29 08:38 | W.ED.ARRPALP ---
HPI - Arrhythmia/Palpitations General: Chief Complaint: Shortness of Breath/Dyspnea Stated Complaint: SOB Time Seen by Provider: 09/29/24 08:37 History of Present Illness: 74-year-old male presents emergency room complaining of increasing shortness of breath decreased exercise tolerance. Patient was seen by his primary care doctor yesterday and they increase his Lasix he has taken 2 doses since then he has noticed increased urine output he has significant amount of swelling in his legs continues to have rapid heart rate and declining exercise tolerance. He denies any fever sweats or chills. Patient has a known history of atrial fibrillation he is on anticoagulation he takes diltiazem for his A-fib. He did not take any of his medicines this morning. On arrival here he is symptomatic with a rapid heart rate rhythm strip shows A-fib with RVR he is also complaining of significant amount of swelling in his lower extremities PND at night keeping him from sleeping Related Data Home Medications ?Medication ?Instructions ?Recorded ?Confirmed atorvastatin 20 mg tablet 20 mg PO QAM 10/11/19 09/29/24 trazodone 100 mg tablet 100 mg PO BEDTIME PRN Sleep 10/11/19 09/29/24 albuterol sulfate 2.5 mg/3 mL 2.5 mg inhalation QID 08/08/24 09/29/24 (0.083 %) solution for nebulization fluticasone furoate 100 1 inh inhalation DAILY 08/08/24 09/29/24 mcg-vilanterol 25 mcg/dose inhalation powder (Breo Ellipta) budesonide-formoterol HFA 160 2 puff inhalation BID 09/29/24 09/29/24 mcg-4.5 mcg/actuation aerosol inhaler cetirizine 10 mg tablet 10 mg PO DAILY 09/29/24 09/29/24 doxycycline hyclate 100 mg capsule 100 mg PO BID 09/29/24 09/29/24 fluticasone propionate 50 1 spray intranasal DAILY 09/29/24 09/29/24 mcg/actuation nasal spray,suspension furosemide 40 mg tablet 40 mg PO BID 09/29/24 09/29/24 potassium chloride 20 mEq 20 meq PO DAILY 09/29/24 09/29/24 tablet,extended release prednisone 20 mg tablet 20 mg PO DAILY 09/29/24 09/29/24 Previous Rx's ?Medication ?Instructions ?Recorded Diabetic shoes #1 ea 03/22/23 apixaban 5 mg tablet (Eliquis) 5 mg PO BID #90 tabs 04/24/23 diltiazem HCl 240 mg 240 mg PO DAILY #30 tabs 09/16/23 tablet,extended release 24 hr (Cardizem LA) oxybutynin chloride 5 mg tablet 5 mg PO DAILY #30 tabs 06/15/24 baclofen 10 mg tablet 10 mg PO BID PRN muscle spasm #60 08/20/24 tabs diabetic shoes with 3 custom #1 ea 09/15/24 inserts Allergies Allergy/AdvReac Type Severity Reaction Status Date / Time No Known Allergies Allergy Verified 09/15/24 07:30 Review of Systems Const: Denies: fever(s) or chills Card: Reports: irregular heart rhythm, edema, swelling of feet/ankles, dyspnea on exertion and orthopnea; Denies: chest pain Resp: Reports: dyspnea GI: Denies: abdominal pain : Denies: dysuria, urinary frequency or urinary urgency Musc: Denies: neck pain or back pain Skin/Breast: Denies: rash PFSH ED PFSH: Medical History Atrial fibrillation Ischemic cardiomyopathy EF 45% Obstructive sleep apnea Unable to tolerate CPAP CAD (coronary atherosclerotic disease) GERD (gastroesophageal reflux disease) DM type 2 (diabetes mellitus, type 2) Depression Anxiety Hypertension COPD (chronic obstructive pulmonary disease) Surgical History Hx of tonsillectomy H/O foot surgery History of carpal tunnel surgery H/O cardiac catheterization Stent 1998 Family History Other Diabetes Denies family history of Liver disease CAD (coronary artery disease) Aneurysm Autoimmune disease Clotting disorder Dementia Heart disease Hyperlipidemia Psychiatric illness Chronic kidney disease (CKD) Bleeding disorder Lung disease Cancer Hypertension Thyroid disease Stroke Social History Smoking and tobacco/nicotine status: current every day tobacco/nicotine user cigarettes Packs smoked per day: 1 Years cigarettes smoked: 50 Alcohol intake: former Substance/Drug Use: never Household members: spouse and family Housing: House Current occupational status: retired Physical Exam Const: GENERAL APPEARANCE: cooperative ORIENTATION/CONSCIOUSNESS: Yes awake, Yes oriented to person, Yes oriented to place and Yes oriented to time HENMT: COMMON NORMALS: normocephalic, atraumatic and hearing grossly normal bilaterally HEAD & SCALP: normocephalic and atraumatic Resp: COMMON NORMALS: normal respiratory effort, No retractions and No use of accessory muscles AUSCULTATION: crackles Cardio: COMMON NORMALS: No murmurs present (Cardio) RATE: tachycardic RHYTHM: abnormal rhythm irregularly irregular GI: COMMON NORMALS: Soft to palpation and No hepatosplenomegaly present AUSCULTATION: Yes normoactive bowel sounds PALPATION: Yes Soft to palpation, No Tenderness to palpation present (GI), No Guarding due to palpation present (GI) and Yes No hepatosplenomegaly present Extremity: OTHER: 2+ edema lower extremities to the level of the thigh with skin breakdown some dry eschar on the right lower leg. No signs of infection at this time Neuro: SENSORIUM/ORIENTATION: Yes oriented to person, Yes oriented to place and Yes oriented to time Skin: COMMON NORMALS: no rashes or lesions noted GENERAL SKIN EXAM: no rashes or lesions noted Course Vital Signs: Vital signs: Vital Signs Temperature 98.0 F 09/29/24 08:26 Pulse Rate 101 H 09/29/24 11:09 Respiratory Rate 20 H 09/29/24 08:26 Blood Pressure 126/78 09/29/24 11:09 Pulse Oximetry 95 09/29/24 11:09 Oxygen Delivery Me thod Nasal Cannula 09/29/24 11:31 MDM - Arrhythmia/Palpitations Medical Decision Making A-fib with RVR decompensated congestive heart failure. Patient started on Cardizem titrated up to achieve rate control was also given Lasix discussed with hospitalist orders written Medical Records I reviewed the patient's medical records. Lab Data I reviewed the patient's lab results. 09/29/24 08:55 09/29/24 08:55 Radiology Impressions Chest X-Ray 09/29/24 08:37 IMPRESSION: No acute findings seen of the chest. Laboratory Results WBC 16.59 10^3/uL (3.29-11.43) H 09/29/24 08:55 RBC 5.67 10^6/uL (3.85-5.65) H 09/29/24 08:55 Hgb 15.60 g/dL (11.27-16.99) 09/29/24 08:55 Hct 50.9 % (37-53) 09/29/24 08:55 MCV 89.8 fl (82-101) 09/29/24 08:55 MCH 27.5 pg (27-33) 09/29/24 08:55 MCHC 30.6 g/dL (30-55) 09/29/24 08:55 RDW 14.4 % (12.1-15.1) 09/29/24 08:55 Plt Count 281 10^3/cmm (157-399) 09/29/24 08:55 MPV 9.6 fL (7.4-10.4) 09/29/24 08:55 Neut % (Auto) 59.3 % 09/29/24 08:55 Lymph % (Auto) 31.8 % 09/29/24 08:55 Sawyer % (Auto) 6.6 % 09/29/24 08:55 Eos % (Auto) 1.4 % 09/29/24 08:55 Baso % (Auto) 0.4 % 09/29/24 08:55 Neut # (Auto) 9.85 10^3/uL (1.8-7.7) H 09/29/24 08:55 Lymph # (Auto) 5.3 10^3/uL (0.8-4.8) H 09/29/24 08:55 Sawyer # (Auto) 1.1 10^3/uL (0.2-0.9) H 09/29/24 08:55 Eos # (Auto) 0.2 10^3/uL (0.0-0.8) 09/29/24 08:55 Baso # (Auto) 0.1 10^3/uL (0.0-0.1) 09/29/24 08:55 Nucleated RBC % (auto) 0 % 09/29/24 08:55 Nucleated RBCs # 0.0 /100WBC 09/29/24 08:55 Sodium 143 mmol/L (136-145) 09/29/24 08:55 Potassium 3.8 mmol/L (3.5-5.1) 09/29/24 08:55 Chloride 97 mmol/L (98-107) L 09/29/24 08:55 Carbon Dioxide 34 mmol/L (22-29) H 09/29/24 08:55 Anion Gap 15.8 (5-19) 09/29/24 08:55 BUN 25 mg/dL (8-23) H 09/29/24 08:55 Creatinine 0.9 mg/dL (0.7-1.2) 09/29/24 08:55 GFR Calculation Not Reportable 09/29/24 08:55 Glucose 112 mg/dL (65-115) 09/29/24 08:55 Calculated Osmolality 301 mOsm/kg (285-295) H 09/29/24 08:55 Calcium 9.4 mg/dL (8.5-10.5) 09/29/24 08:55 Total Bilirubin 0.8 mg/dL (0.15-1.2) 09/29/24 08:55 AST 11 U/L (0-40) 09/29/24 08:55 ALT 15 U/L (0-41) 09/29/24 08:55 Alkaline Phosphatase 102 U/L (40-130) 09/29/24 08:55 Troponin T Baseline 54 ng/L (0-15) H 09/29/24 08:55 Troponin T 120 Minute 52.78 ng/L (0-15) H 09/29/24 10:22 Delta Troponin T -1.22 ABS# (0-10) L 09/29/24 10:22 Total Protein 6.8 g/dL (6.6-8.7) 09/29/24 08:55 Albumin 4.0 g/dL (3.5-5.2) 09/29/24 08:55 Globulin 2.8 g/dL (1.3-4.6) 09/29/24 08:55 Urine Color Yellow (Yellow) 09/29/24 09:53 Urine Appearance Clear (CLEAR) 09/29/24 09:53 Urine pH 7.5 (5-7) 09/29/24 09:53 Ur Specific Hubbard 1.014 (1.005-1.030) 09/29/24 09:53 Urine Protein Trace (Negative) A 09/29/24 09:53 Urine Glucose (UA) Negative (Normal) 09/29/24 09:53 Urine Ketones Negative (Negative) 09/29/24 09:53 Urine Blood Negative (Negative) 09/29/24 09:53 Urine Nitrate Negative (Negative) 09/29/24 09:53 Urine Bilirubin Negative (Negative) 09/29/24 09:53 Urine Urobilinogen 1.0 mg/dL (Negative) 09/29/24 09:53 Ur Leukocyte Esterase Negative (Negative) 09/29/24 09:53 Urine RBC 0-2 /hpf (0-2) 09/29/24 09:53 Urine WBC 0-5 /hpf (0-5) 09/29/24 09:53 Ur Squamous Epith Cells 0-5 /hpf (0-5) 09/29/24 09:53 Amorphous Sediment Not Reportable 09/29/24 09:53 Urine Bacteria None seen /hpf (NONE) 09/29/24 09:53 Hyaline Casts 0-4 /lpf H 09/29/24 09:53 All radiology interpretation(s) finalized by discharge Discharge Plan Discharge Patient Disposition: Admitted As Inpatient Admit Provider: Alonzo Shahid Clinical Impression: Atrial fibrillation with rapid ventricular response, Acute exacerbation of CHF (congestive heart failure), COPD (chronic obstructive pulmonary disease) Condition: Stable Coding Level of Care Code ED Adhesive Primer for Jon Hunter
[2024-09-29 08:58] LABS: Basophils # 0.1 10^3/uL (0.0-0.1); Basophils % 0.4 %; Eosinophils # 0.2 10^3/uL (0.0-0.8); Eosinophils % 1.4 %; Hematocrit 50.9 % (37-53); Lymphocytes # 5.3 10^3/uL (0.8-4.8); Lymphocytes % 31.8 %; Mean Corpuscular HGB Conc 30.6 g/dL (30-55); Mean Corpuscular Hemoglobin 27.5 pg (27-33); Mean Corpuscular Volume 89.8 fl (82-101); Mean Platelet Volume 9.6 fL (7.4-10.4); Monocytes # 1.1 10^3/uL (0.2-0.9); Monocytes % 6.6 %; Neutrophils # 9.85 10^3/uL (1.8-7.7); Neutrophils % 59.3 %; Nucleated Red Blood Cells % 0 %; Platelet Count 281 10^3/cmm (157-399); Red Blood Count 5.67 10^6/uL (3.85-5.65); Red Cell Distribution Width 14.4 % (12.1-15.1); White Blood Count 16.59 10^3/uL (3.29-11.43)
[2024-09-29] MEDS: dilTIAZem 5 mg/mL SDV 5 mL 10 MG IVP (09:05)
[2024-09-29] MEDS: dilTIAZem 100 MG in sodium chloride 0.9% (add-van) 100 ML IV (09:06)
[2024-09-29 09:20] LABS: Alanine Aminotransferase 15 U/L (0-41); Alkaline Phosphatase 102 U/L (40-130); Anion Gap 15.8 (5-19); Aspartate Amino Transferase 11 U/L (0-40); Blood Urea Nitrogen 25 mg/dL (8-23); Calcium 9.4 mg/dL (8.5-10.5); Carbon Dioxide 34 mmol/L (22-29); Chloride 97 mmol/L (98-107); Creatinine Clr Calc Pharmacy 92.6101; Globulin 2.8 g/dL (1.3-4.6); Glucose 112 mg/dL (65-115); Osmolality Calculated 301 mOsm/kg (285-295); Potassium 3.8 mmol/L (3.5-5.1); Sodium 143 mmol/L (136-145); Total Bilirubin 0.8 mg/dL (0.15-1.2); Total Protein 6.8 g/dL (6.6-8.7)
[2024-09-29 09:21] LABS: Troponin(5th) Baseline 54 ng/L (0-15)
[2024-09-29 09:37] LABS: Slide Review Slide Review Perform
[2024-09-29] MEDS: FUROsemide 10 mg/mL SDV 4mL 40 MG IVP (09:45)
[2024-09-29 10:07] LABS: Bilirubin Urine Negative (Negative); Blood Urine Negative (Negative); Glucose Urine UA Negative (Normal); Ketones Urine Negative (Negative); Leukocyte Esterase Urine Negative (Negative); Nitrate Urine Negative (Negative); Protein Urine Trace (Negative); Specific Gravity, Urine 1.014 (1.005-1.030); Urine Appearance Clear (CLEAR); Urine Color Yellow (Yellow); pH Urine 7.5 (5-7)
[2024-09-29 10:12] LABS: Add Urine Microscopic? YES; Bacteria Urine None Seen /hpf; Hyaline Casts Urine 0-4 /lpf; RBC Urine 0-2 /hpf (0-2); Squamous Epithelial Cell Urine 0-5 /hpf (0-5); WBC Urine 0-5 /hpf (0-5)
[2024-09-29 10:15] LABS: Add Urine Culture? No
--- NOTE | 2024-09-29 10:37 | ECG_ITS ---
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 Measurements Intervals Ruth Rate: 94 P: 0 MS: 0 QRS: 81 QRSD: 110 T: -8 QT: 356 QTc: 446 Interpretive Statements ATRIAL FIBRILLATION NONSPECIFIC T-WAVE ABNORMALITY Compared to ECG 09/29/2024 08:23:03 No significant changes Electronically Signed On 09-29-2024 17:48:53 CDT by Hailey Holley M.D. [email or web address]
[2024-09-29 10:50] LABS: Troponin 5 2HR 52.78 ng/L (0-15)
[2024-09-29 10:54] LABS: Troponin 5 2HR Delta -1.22 ABS# (0-10)
--- NOTE | 2024-09-29 13:15 | ECG_ITS ---
[facility] Test Date: 2024-09-29 Pat Name: Jasper Savage Department: Room: 106 Gender: Male Leg Man: : 1950 Requested By: Lj Riley Order Number: [id number] Ariana MD: Hailey Holley M.D. Measurements Intervals Dalton Rate: 98 P: 0 UT: 0 QRS: 35 QRSD: 109 T: 28 QT: 365 QTc: 468 Interpretive Statements ATRIAL FIBRILLATION MINIMAL ST DEPRESSION [0.025+ mV ST DEPRESSION] ABNORMAL RHYTHM ECG Compared to ECG 09/29/2024 10:25:06 ST (T wave) deviation now present T-wave abnormality no longer present Electronically Signed On 09-29-2024 17:48:24 CDT by Hailey Holley M.D. [email or web address]
--- NOTE | 2024-09-29 13:24 | PM.HP ---
Providers/Chief Complaint Admitting Physician: Alonzo Shahid Primary Care Provider: Kacey Chew Chief Complaint: SOB History of Present Illness Jasper Savage is a 74 year old male with a history of congestive heart failure and COPD presenting with worsening swelling and weeping edema of the legs, shortness of breath, and cough. The patient reports that the symptoms have been ongoing for about three to four weeks. The cough was previously productive of green phlegm but is not currently producing sputum. The patient recently increased their Lasix dose to 40 mg twice daily with their primary doctor, but continues to retain fluid and experience shortness of breath and cough. The patient denies chest pain, pressure, fever, chills, throat pain, sneezing, nausea, vomiting, diarrhea, blood in stool, dark black stools, and blood in urine. The patient reports leg and foot soreness. The patient has a history of using home oxygen, which was discontinued, and takes breathing treatments at home. The patient is in the process of quitting smoking, currently smoking about a pack per day, previously more. The patient walks a little at home and does not use a cane. The patient?s son is listed as their decision-maker if needed. No additional concerns or questions were raised by the patient during the encounter. Recently was given a 5 day course of prednisone. Review of Systems Const: Denies: fever(s), chills, body aches or malaise ENMT: Denies: throat pain Card: Reports: swelling of feet/ankles (and pain.), dyspnea on exertion and orthopnea; Denies: chest pain, edema or pre-syncope Resp: Reports: dyspnea; Denies: productive cough, change in phlegm color or hemoptysis GI: Denies: abdominal pain, nausea, vomiting, diarrhea, constipation, hematochezia or melena : Denies: flank pain, difficulty urinating, urinary frequency or hematuria Musc: Denies: back pain, joint swelling or joint redness Skin/Breast: Denies: rash or new lesions Neuro: Denies: headache(s) or confusion Medications/Allergies Home Medications ?Medication ?Instructions ?Recorded ?Confirmed ?Last Taken ?Type atorvastatin 20 mg tablet 20 mg PO QAM 10/11/19 09/29/24 09/28/24 History trazodone 100 mg tablet 100 mg PO BEDTIME PRN Sleep 10/11/19 09/29/24 08/07/24 History Diabetic shoes #1 ea 03/22/23 09/29/24 Unknown Rx apixaban 5 mg tablet (Eliquis) 5 mg PO BID #90 tabs 04/24/23 09/29/24 09/28/24 Rx diltiazem HCl 240 mg 240 mg PO DAILY #30 tabs 09/16/23 09/29/24 09/28/24 Rx tablet,extended release 24 hr (Cardizem LA) oxybutynin chloride 5 mg tablet 5 mg PO DAILY #30 tabs 06/15/24 09/29/24 09/28/24 Rx albuterol sulfate 2.5 mg/3 mL 2.5 mg inhalation QID 08/08/24 09/29/24 09/28/24 History (0.083 %) solution for nebulization fluticasone furoate 100 1 inh inhalation DAILY 08/08/24 09/29/24 09/28/24 History mcg-vilanterol 25 mcg/dose inhalation powder (Breo Ellipta) baclofen 10 mg tablet 10 mg PO BID PRN muscle spasm #60 08/20/24 09/29/24 Unknown Rx tabs diabetic shoes with 3 custom #1 ea 09/15/24 09/29/24 Unknown Rx inserts budesonide-formoterol HFA 160 2 puff inhalation BID 09/29/24 09/29/24 09/28/24 History mcg-4.5 mcg/actuation aerosol inhaler cetirizine 10 mg tablet 10 mg PO DAILY 09/29/24 09/29/24 09/28/24 History doxycycline hyclate 100 mg capsule 100 mg PO BID 09/29/24 09/29/24 09/28/24 History fluticasone propionate 50 1 spray intranasal DAILY 09/29/24 09/29/24 09/28/24 History mcg/actuation nasal spray,suspension furosemide 40 mg tablet 40 mg PO BID 09/29/24 09/29/24 09/28/24 History potassium chloride 20 mEq 20 meq PO DAILY 09/29/24 09/29/24 09/28/24 History tablet,extended release prednisone 20 mg tablet 20 mg PO DAILY 09/29/24 09/29/24 09/28/24 History Allergies Allergy/AdvReac Type Severity Reaction Status Date / Time No Known Allergies Allergy Verified 09/15/24 07:30 PFSH Acute PFSH: Medical History Atrial fibrillation Ischemic cardiomyopathy EF 45% Obstructive sleep apnea Unable to tolerate CPAP CAD (coronary atherosclerotic disease) GERD (gastroesophageal reflux disease) DM type 2 (diabetes mellitus, type 2) Depression Anxiety Hypertension COPD (chronic obstructive pulmonary disease) Surgical History Hx of tonsillectomy H/O foot surgery History of carpal tunnel surgery H/O cardiac catheterization Stent 1998 Family History Other Diabetes Denies family history of Liver disease CAD (coronary artery disease) Aneurysm Autoimmune disease Clotting disorder Dementia Heart disease Hyperlipidemia Psychiatric illness Chronic kidney disease (CKD) Bleeding disorder Lung disease Cancer Hypertension Thyroid disease Stroke Social History Smoking and tobacco/nicotine status: current every day tobacco/nicotine user cigarettes Packs smoked per day: 1 Years cigarettes smoked: 50 Alcohol intake: former Substance/Drug Use: never Household members: spouse and family Housing: House Current occupational status: retired Vitals/I&O/Wt Last Vital Signs Temp 98.0 F 09/29/24 08:26 Pulse 101 H 09/29/24 11:09 Resp 20 H 09/29/24 08:26 BP 126/78 09/29/24 11:09 Pulse Ox 95 09/29/24 11:09 O2 Del Method Nasal Cannula 09/29/24 11:31 09/28/24 09/29/24 09/29/24 22:59 06:59 14:59 Intake Total 13.125 / 13.125 Balance 13.125 / 13.125 Weight last 48 hrs Weight 108.2 kg Weight 111.13 kg Physical Exam Const: COMMON NORMALS: patient oriented x3 and alert GENERAL APPEARANCE: cooperative ORIENTATION/CONSCIOUSNESS: Yes awake HENMT: COMMON NORMALS: oropharynx normal Neck/C-Spine: COMMON NORMALS: no JVD Resp: COMMON NORMALS: normal respiratory effort and clear to auscultation bilaterally AUSCULTATION: clear to auscultation bilaterally Cardio: COMMON NORMALS: no JVD, regular rhythm, S1 normal heart sound present, S2 normal heart sound present and No murmurs present (Cardio) RHYTHM: regular rhythm HEART SOUNDS: S1 normal heart sound present and S2 normal heart sound present GI: COMMON NORMALS: Normal to inspection, nondistended, normoactive bowel sounds present, Soft to palpation and non-tender PALPATION: Yes Soft to palpation Extremity: COMMON NORMALS: no joint enlargement GENERAL: Yes edema (3+) Neuro: COMMON NORMALS: patient oriented x3 and moves all extremities SENSORIUM/ORIENTATION: Yes alert Skin: COMMON NORMALS: no rashes or lesions noted GENERAL SKIN EXAM: no rashes or lesions noted OTHER: Dry scaly skin of feet and toes. Data 09/29/24 08:55 09/29/24 08:55 A&P Assessment and plan (1) Acute exacerbation of CHF (congestive heart failure): Acute systolic CHF, reviewed prior echo, EF 40-45% back in March 2023. Global hypokinesis. The patient presents with worsening swelling and weeping edema of the legs, shortness of breath, orthopnea and fluid retention despite increased Lasix dose. No chest pain or pressure. The provider suspects an exacerbation of congestive heart failure. Reviewed vitals, CBC, CMP, troponin, UA, chest x-ray, EKG, ER provider note, discussed with ER provider. - Continue diuretics (Lasix) to manage fluid overload. Continue 4 mg IV Lasix twice daily. Monitor electrolytes with risk of electrolyte deficiency. Monitor risk of kidney injury, hypovolemia. - Monitor response to diuretics and adjust as needed. Complete troponin and EKG series. (2) Atrial fibrillation with rapid ventricular response: Continue Cardizem drip. Wean off drip as tolerating. Resume oral Cardizem. Monitor for risk of hypotension. Reviewed potassium, 3.8, will give 20 mill equivalents of potassium. Check magnesium. Check TSH. Treat acute CHF. Plan COPD: With severe exacerbation, with dyspnea, cough, cough productive of yellow sputum. Was recently prescribed a course of doxycycline and prednisone. Discussed with him we will continue treatment with IV corticosteroid with Solu-Medrol, due to risk of hypertension, gastritis, hyperglycemia, encephalopathy, and antibiotic with ceftriaxone. Collect urine culture. Will give breathing treatments. Leukocytosis: 16.59, although without suggestion of acute infection, without suggestion of cellulitis on bilateral lower extremities, no sign of pneumonia on chest x-ray, no GI or urinary symptoms. COPD with exacerbation. Did receive prednisone recently. DM2: Monitor POC glucose. SSI. Consult carbohydrate diet. HTN: Monitor blood pressure, diuresis as above. History of ischemic cardiomyopathy, CAD VINNY: Unable to tolerate CPAP PDMP PDMP Reviewed: Not Reviewed Attestations Medical Necessity Statement*: Place in observation for further assessment management of acute systolic congestive heart failure, optimization of A-fib with RVR, severe COPD exacerbation. Diagnoses Acute on chronic systolic congestive heart failure I50.23 Heart failure type: systolic Atrial fibrillation with rapid ventricular response I48.91
[2024-09-29] MEDS: acetaminophen 325 mg Tablet 650 MG PO (13:57)
[2024-09-29] MEDS: baclofen 10 mg Tablet PO (13:57)
[2024-09-29] MEDS: lidocaine 2% jelly 1 APPLIC/6 ML TUBE TOPICAL (14:45)
[2024-09-29 14:46] LABS: Magnesium 1.7 mg/dL (1.7-2.3); Thyroid Stimulating Hormone 2.68 uIU/mL (0.27-4.20)
[2024-09-29] MEDS: methylPREDNISolone sod succ 40 mg/mL INJ IVP (14:53)
[2024-09-29] MEDS: cefTRIAXone 1,000 mg SDV 1000 MG IVP (14:53)
[2024-09-29] MEDS: dilTIAZem ER (24HR) 240 mg Capsule PO (14:53)
--- NOTE | 2024-09-29 15:58 | PC.NURSE ---
patient had apneic period during sleeping he had taken his o2 off at some point and upon falling asleep became apneic message sent to provide no new instructions received
[2024-09-29 16:30] LABS: Troponin 5 6HR 55.17 ng/L (0-15); Troponin 5 6HR Delta 1.17 ng/L (0-12)
[2024-09-29] MEDS: apixaban 5 mg Tablet PO (16:53)
[2024-09-29] MEDS: ipratropium-albuterol 3 mL Neb INHALATION (20:45)
[2024-09-30] VITALS (7 sets, daily range): BP systolic 114–138; BP diastolic 62–85; PULSE 79–96; RESP 18–23; TEMP 36.4–36.5; O2SAT 87–96
[2024-09-30] MEDS: methylPREDNISolone sod succ 40 mg/mL INJ IVP ×2 (00:04→05:01)
[2024-09-30] MEDS: ipratropium-albuterol 3 mL Neb INHALATION ×2 (02:19→07:37)
[2024-09-30 04:07] LABS: Basophils % 0.1 %; Hematocrit 51.4 % (37-53); Lymphocytes # 2.4 10^3/uL (0.8-4.8); Lymphocytes % 18.3 %; Mean Corpuscular HGB Conc 30.4 g/dL (30-55); Mean Corpuscular Hemoglobin 27.5 pg (27-33); Mean Corpuscular Volume 90.5 fl (82-101); Mean Platelet Volume 9.8 fL (7.4-10.4); Monocytes # 0.2 10^3/uL (0.2-0.9); Monocytes % 1.2 %; Neutrophils # 10.47 10^3/uL (1.8-7.7); Neutrophils % 79.6 %; Nucleated Red Blood Cells % 0 %; Platelet Count 256 10^3/cmm (157-399); Red Blood Count 5.68 10^6/uL (3.85-5.65); White Blood Count 13.15 10^3/uL (3.29-11.43)
[2024-09-30 04:29] LABS: Alanine Aminotransferase 13 U/L (0-41); Albumin Level 3.5 g/dL (3.5-5.2); Alkaline Phosphatase 102 U/L (40-130); Anion Gap 14.1 (5-19); Aspartate Amino Transferase 9 U/L (0-40); Blood Urea Nitrogen 29 mg/dL (8-23); Carbon Dioxide 34 mmol/L (22-29); Chloride 94 mmol/L (98-107); Creatinine Clr Calc Pharmacy 82.2422; Globulin 3.5 g/dL (1.3-4.6); Glucose 273 mg/dL (65-115); Osmolality Calculated 302 mOsm/kg (285-295); Potassium 4.1 mmol/L (3.5-5.1); Sodium 138 mmol/L (136-145); Total Bilirubin 1.1 mg/dL (0.15-1.2)
[2024-09-30] MEDS: atorvastatin 40 mg Tablet 20 MG PO (05:01)
--- NOTE | 2024-09-30 08:17 | PM.DCS ---
Discharge Providers Date of Admission: 09/29/24 10:24 Date of Discharge: September 30, 2024 Attending Provider at Admission: Alonzo Shahid Attending Provider at Discharge: Alonzo Shahid Primary Care Provider: Kacey Chew Diagnoses at Discharge Discharge Diagnosis (1) Acute exacerbation of CHF (congestive heart failure): Status: Acute Qualifiers: Heart failure type: systolic Qualified Code(s): I50.23 - Acute on chronic systolic (congestive) heart failure (2) Atrial fibrillation with rapid ventricular response: Status: Acute Reason for Visit Reason for Visit: SOB Brief History: Jasper Savage is a 74 year old male with a history of congestive heart failure and COPD presenting with worsening swelling and weeping edema of the legs, shortness of breath, and cough. The patient reports that the symptoms have been ongoing for about three to four weeks. The cough was previously productive of green phlegm but is not currently producing sputum. The patient recently increased their Lasix dose to 40 mg twice daily with their primary doctor, but continues to retain fluid and experience shortness of breath and cough. The patient denies chest pain, pressure, fever, chills, throat pain, sneezing, nausea, vomiting, diarrhea, blood in stool, dark black stools, and blood in urine. The patient reports leg and foot soreness. The patient has a history of using home oxygen, which was discontinued, and takes breathing treatments at home. The patient is in the process of quitting smoking, currently smoking about a pack per day, previously more. The patient walks a little at home and does not use a cane. The patient?s son is listed as their decision-maker if needed. No additional concerns or questions were raised by the patient during the encounter. Recently was given a 5 day course of prednisone. Hospital Course Hospital Course She was admitted and treated for acute exacerbation of CHF, exacerbation of COPD, as well as optimization of control of A-fib with RVR. Received treatment with IV diuresis, IV corticosteroid, ceftriaxone, breathing treatments, and received treatment with Cardizem drip for A-fib with RVR. Today he is feeling much better. Breathing improved. Air entry improved and wheezing resolved. Subjectively he is feeling much better. He is resumed on home regimen of diuretic, will complete prednisone and cefdinir course and continue on Cardizem and Eliquis. Physical Exam Const: COMMON NORMALS: patient oriented x3 and alert GENERAL APPEARANCE: cooperative ORIENTATION/CONSCIOUSNESS: Yes awake HENMT: COMMON NORMALS: oropharynx normal Neck/C-Spine: COMMON NORMALS: no JVD Resp: COMMON NORMALS: normal respiratory effort and clear to auscultation bilaterally AUSCULTATION: clear to auscultation bilaterally Cardio: COMMON NORMALS: no JVD, regular rhythm, S1 normal heart sound present, S2 normal heart sound present and No murmurs present (Cardio) RHYTHM: regular rhythm HEART SOUNDS: S1 normal heart sound present and S2 normal heart sound present GI: COMMON NORMALS: Normal to inspection, nondistended, normoactive bowel sounds present, Soft to palpation and non-tender PALPATION: Yes Soft to palpation Extremity: COMMON NORMALS: no joint enlargement GENERAL: Yes edema (3+) Neuro: COMMON NORMALS: patient oriented x3 and moves all extremities SENSORIUM/ORIENTATION: Yes alert Skin: COMMON NORMALS: no rashes or lesions noted GENERAL SKIN EXAM: no rashes or lesions noted OTHER: Dry scaly skin of feet and toes. Discharge Data Studies Completed and Pending Completed Studies During Hospitalization Category Date Time Status XR chest 1V portable [id number] Stat Exams 09/29/24 08:37 Completed Pending at discharge Category Date Time Status Complete Blood Count w/Auto AM LABS Lab 10/01/24 04:00 Ordered Complete Blood Count w/Auto AM LABS Lab 10/02/24 04:00 Ordered Comprehensive Metabolic Panel AM LABS Lab 10/01/24 04:00 Ordered Comprehensive Metabolic Panel AM LABS Lab 10/02/24 04:00 Ordered Sputum Culture and Gram Stain Routine Lab 09/29/24 14:04 Uncollected Radiology Impressions Chest X-Ray 09/29/24 08:37 IMPRESSION: No acute findings seen of the chest. Laboratory Results WBC 13.15 10^3/uL (3.29-11.43) H 09/30/24 03:41 RBC 5.68 10^6/uL (3.85-5.65) H 09/30/24 03:41 Hgb 15.60 g/dL (11.27-16.99) 09/30/24 03:41 Hct 51.4 % (37-53) 09/30/24 03:41 MCV 90.5 fl (82-101) 09/30/24 03:41 MCH 27.5 pg (27-33) 09/30/24 03:41 MCHC 30.4 g/dL (30-55) 09/30/24 03:41 RDW 14.0 % (12.1-15.1) 09/30/24 03:41 Plt Count 256 10^3/cmm (157-399) 09/30/24 03:41 MPV 9.8 fL (7.4-10.4) 09/30/24 03:41 Neut % (Auto) 79.6 % 09/30/24 03:41 Lymph % (Auto) 18.3 % 09/30/24 03:41 [place] % (Auto) 1.2 % 09/30/24 03:41 Eos % (Auto) 0.0 % 09/30/24 03:41 Baso % (Auto) 0.1 % 09/30/24 03:41 Neut # (Auto) 10.47 10^3/uL (1.8-7.7) H 09/30/24 03:41 Lymph # (Auto) 2.4 10^3/uL (0.8-4.8) 09/30/24 03:41 [place] # (Auto) 0.2 10^3/uL (0.2-0.9) 09/30/24 03:41 Eos # (Auto) 0.0 10^3/uL (0.0-0.8) 09/30/24 03:41 Baso # (Auto) 0.0 10^3/uL (0.0-0.1) 09/30/24 03:41 Nucleated RBC % (auto) 0 % 09/30/24 03:41 Nucleated RBCs # 0.0 /100WBC 09/30/24 03:41 Sodium 138 mmol/L (136-145) 09/30/24 03:41 Potassium 4.1 mmol/L (3.5-5.1) 09/30/24 03:41 Chloride 94 mmol/L (98-107) L 09/30/24 03:41 Carbon Dioxide 34 mmol/L (22-29) H 09/30/24 03:41 Anion Gap 14.1 (5-19) 09/30/24 03:41 BUN 29 mg/dL (8-23) H 09/30/24 03:41 Creatinine 1.0 mg/dL (0.7-1.2) 09/30/24 03:41 GFR Calculation Not Reportable 09/30/24 03:41 Glucose 273 mg/dL (65-115) H 09/30/24 03:41 Calculated Osmolality 302 mOsm/kg (285-295) H 09/30/24 03:41 Calcium 9.0 mg/dL (8.5-10.5) 09/30/24 03:41 Magnesium 1.7 mg/dL (1.7-2.3) 09/29/24 10:22 Total Bilirubin 1.1 mg/dL (0.15-1.2) 09/30/24 03:41 AST 9 U/L (0-40) 09/30/24 03:41 ALT 13 U/L (0-41) 09/30/24 03:41 Alkaline Phosphatase 102 U/L (40-130) 09/30/24 03:41 Troponin T Baseline 54 ng/L (0-15) H 09/29/24 08:55 Troponin T 120 Minute 52.78 ng/L (0-15) H 09/29/24 10:22 Delta Troponin T -1.22 ABS# (0-10) L 09/29/24 10:22 Troponin T Hi Sens 6Hr 55.17 ng/L (0-15) H 09/29/24 15:41 Troponin T Hi Sens 6Hr Delta 1.17 ng/L (0-12) 09/29/24 15:41 Total Protein 7.0 g/dL (6.6-8.7) 09/30/24 03:41 Albumin 3.5 g/dL (3.5-5.2) 09/30/24 03:41 Globulin 3.5 g/dL (1.3-4.6) 09/30/24 03:41 TSH 2.68 uIU/mL (0.27-4.20) 09/29/24 10:22 Urine Color Yellow (Yellow) 09/29/24 09:53 Urine Appearance Clear (CLEAR) 09/29/24 09:53 Urine pH 7.5 (5-7) 09/29/24 09:53 Ur Specific Russell 1.014 (1.005-1.030) 09/29/24 09:53 Urine Protein Trace (Negative) A 09/29/24 09:53 Urine Glucose (UA) Negative (Normal) 09/29/24 09:53 Urine Ketones Negative (Negative) 09/29/24 09:53 Urine Blood Negative (Negative) 09/29/24 09:53 Urine Nitrate Negative (Negative) 09/29/24 09:53 Urine Bilirubin Negative (Negative) 09/29/24 09:53 Urine Urobilinogen 1.0 mg/dL (Negative) 09/29/24 09:53 Ur Leukocyte Esterase Negative (Negative) 09/29/24 09:53 Urine RBC 0-2 /hpf (0-2) 09/29/24 09:53 Urine WBC 0-5 /hpf (0-5) 09/29/24 09:53 Ur Squamous Epith Cells 0-5 /hpf (0-5) 09/29/24 09:53 Amorphous Sediment Not Reportable 09/29/24 09:53 Urine Bacteria None seen /hpf (NONE) 09/29/24 09:53 Hyaline Casts 0-4 /lpf H 09/29/24 09:53 Vitals Last Vital Signs Temp 97.7 F 09/30/24 07:32 Pulse 91 09/30/24 07:44 Resp 18 09/30/24 07:38 BP 114/62 09/30/24 07:32 Pulse Ox 94 09/30/24 07:38 O2 Del Method Nasal Cannula 09/30/24 07:38 O2 Flow Rate 2 09/30/24 07:38 Discharge Plan Discharge Patient Disposition: Home Condition: Stable Prescriptions: New prednisone 20 mg tablet 20 mg PO DAILY Qty: 19 0RF Rx Instructions: 3 tab daily for 3 days, then 2 tab for 3 days, then 1 tab for 3 days, then 1/2 tab for 2 days. cefdinir 300 mg capsule 300 mg PO BID 5 Days Qty: 10 0RF Continued Eliquis 5 mg tablet 5 mg PO BID Qty: 90 2RF (DME) Diabetic shoes See Rx Instructions .ROUTE .MEDSUPPLY Qty: 1 0RF Rx Instructions: With 3 pairs of inserts made by the [employer] (DME) diabetic shoes with 3 custom inserts See Rx Instructions .Route .MEDSUPPLY Qty: 1 0RF Rx Instructions: As directed to [facility] baclofen 10 mg tablet 10 mg PO BID PRN (Reason: muscle spasm) Qty: 60 0RF oxybutynin chloride 5 mg tablet 5 mg PO DAILY Qty: 30 0RF atorvastatin 20 mg tablet 20 mg PO QAM trazodone 100 mg tablet 100 mg PO BEDTIME PRN (Reason: Sleep) albuterol sulfate 2.5 mg /3 mL (0.083 %) solution for nebulization 2.5 mg inhalation QID fluticasone furoate-vilanterol [Breo Ellipta] 100-25 mcg/dose blister with device 1 inh inhalation DAILY diltiazem HCl [Cardizem LA] 240 mg tablet extended release 24 hr 240 mg PO DAILY Qty: 30 0RF furosemide 40 mg tablet 40 mg PO BID cetirizine 10 mg tablet 10 mg PO DAILY fluticasone propionate 50 mcg/actuation spray,suspension 1 spray INTRANASAL DAILY budesonide-formoterol 160-4.5 mcg/actuation HFA aerosol inhaler 2 puff INHALATION BID potassium chloride 20 mEq tablet extended release 20 meq PO DAILY Discontinued doxycycline hyclate 100 mg capsule 100 mg PO BID prednisone 20 mg tablet 20 mg PO DAILY Discharge Orders: Discharge Order (Routine); Ordered 09/30/24 Ordered By: Alonzo Shahid Other Ambulatory Orders: DME: Oxygen (Order) Location: None Selected Ordered By: Alonzo Sahhid Referrals: Kacey Chew PA [Primary Care Provider, [employer] [employer] Coord[facility]] - 10/06/24 1:40 pm Discharge Diet: Cardiac Patient Instructions: Prednisone (By mouth), Cefdinir (By mouth), Heart Failure (GEN), COPD (Chronic Obstructive Pulmonary Disease) (GEN), Opioid Safety Activity Restrictions/Additional Instructions: Consider fluid restriction of less than 1.5 L of fluid per day to help reduce chance of buildup of extra fluid leading to exacerbation of congestive heart failure. Follow-up with your primary doctor for reassessment of heart failure. Follow-up with your primary doctor for reassessment and if blood pressures are staying good consider initiating treatment of Entresto. Complete prednisone taper and antibiotic course for COPD exacerbation. Follow-up with your primary doctor for reassessment. Have your doctor reassess your oxygenation and need for oxygen in office. Have your primary doctor reassess your heart rates with atrial fibrillation. Monitor heart rates at home 2-3 times daily and write down values to bring to your appointment. As discussed, seek medical attention in case of any worsening or new concerning symptoms. Discharge Attestations Time Spent in Discharge Care*: greater than 30 min Quality Metrics Clinical Quality Measures [ No reported AMI, CVA or VTE this stay] Coding Level of Care Code 89757 Total time (in minutes) for Discharge: 35 Diagnoses Acute on chronic systolic congestive heart failure I50.23 Heart failure type: systolic Atrial fibrillation with rapid ventricular response I48.91
[2024-09-30] MEDS: oxybutynin 5 mg Tablet PO (09:02)
[2024-09-30] MEDS: dilTIAZem ER (24HR) 240 mg Capsule PO (09:02)
[2024-09-30] MEDS: apixaban 5 mg Tablet PO (09:02)
[2024-09-30] MEDS: potassium chloride ER 20 mEq Tablet PO (09:02)
--- NOTE | 2024-09-30 10:25 | PC.CHAP ---
Pastoral Care Encounter/Spiritual Assessment Type of Contact [] Declined senior storage engineer visit [] Patient/Family/Request visit [] Outpatient visit [] Follow-up visit [] Physician referral [] Code/Alert [] Routine visit [] Staff referral [] Actively dying [] Patient sleeping [] Family support [] [] Out of room [] Palliative care [] [x] Receiving care in room [] Pre-surgical visit [] Trauma [] Long length of stay [] ICU visit [] Other: Relational/Emotional Strength [] Patient feels connected with others/family/visitors/staff [] Distress [] Loneliness/isolation [] Abandonment Spirituality of Patient [] Person of Jeanne [] Attends Anglican of their Jeanne [] Believes in Prayer [] Reads Bible or Anabaptism materials [] There are Spiritual issues to be addressed Train Examiner Interventions [] Prayer [] Active listening [] Non-anxious presence [] Spiritual/emotional support [] Crisis/trauma care [] Spiritual counseling [] Bereavement support [] Provided bereavement packet [] Provided Bible/devotional materials [] Provided toy/stuffed animal, coloring book to patient or family member [] Provided Communion [] Anointing/Jeremiah [] Salvation [] Completed spiritual assessment [] Other: Impact on Illness or Injury [] Angry [] Fearful [] Anxious [] Often cries [] Exhaustion [] Unable to work [] Unable to attend sabianism [] Unable to walk/stand [] Unable to read [] Unable to drive [] Unable to eat/drink [] Unable to sleep [] Unable to be with family [] Patient intubated [] Other: Summary Time spent with patient
== END 2024-09-30 11:30 | disposition home or self-care (01) ==
LOC: ER 08:42 → CSU 10:25
PROVIDERS: Admitting Provider Internal Medicine; Emergency Provider Family Medicine; PCP Physician Assistant; Visit Provider Internal Medicine
DX: I11.0 Hypertensive heart disease with heart failure (principal); I50.23 Acute on chronic systolic (congestive) heart failure; J44.1 Chronic obstructive pulmonary disease with (acute) exacerbation; I48.91 Unspecified atrial fibrillation; Z79.01 Long term (current) use of anticoagulants; F17.210 Nicotine dependence, cigarettes, uncomplicated; R60.0 Localized edema; G47.33 Obstructive sleep apnea (adult) (pediatric); E11.9 Type 2 diabetes mellitus without complications; F41.9 Anxiety disorder, unspecified; Z95.5 Presence of coronary angioplasty implant and graft
CPT/HCPCS: 36415; 71045; 80053; 81001; 83735; 84443; 84484; 85025; 93005; 94640; 94760; 96365; 96366; 96375; 96376; 99285; 99291; A9270; G0378; J0696; J1938; J2919; J3490; J9999

== ENCOUNTER → 2024-11-17 07:14 | Outpatient (BNVA) | payer MEDICARE, SELFPAY | PROVIDERS: PCP Physician Assistant; Visit Provider Podiatrist Foot & Ankle Surgery | DX: E11.69 Type 2 diabetes mellitus with other specified complication (principal); L60.3 Nail dystrophy; L84 Corns and callosities; I73.9 Peripheral vascular disease, unspecified; G63 Polyneuropathy in diseases classified elsewhere | CPT/HCPCS: 11056; 11721 ==

== ENCOUNTER → 2025-01-14 09:51 | Outpatient (BNVA) | payer MEDICARE, SELFPAY | PROVIDERS: PCP Physician Assistant; Referring Provider Physician Assistant; Visit Provider Internal Medicine Cardiovascular Disease | DX: I48.11 Longstanding persistent atrial fibrillation (principal); Z79.01 Long term (current) use of anticoagulants; I11.0 Hypertensive heart disease with heart failure; I50.20 Unspecified systolic (congestive) heart failure; I25.118 Atherosclerotic heart disease of native coronary artery with other forms of angina pectoris; I73.9 Peripheral vascular disease, unspecified; E11.9 Type 2 diabetes mellitus without complications; F17.210 Nicotine dependence, cigarettes, uncomplicated; R06.09 Other forms of dyspnea; Z98.61 Coronary angioplasty status; R06.02 Shortness of breath | CPT/HCPCS: 36415; 80048; 83880; 99205 ==

== ENCOUNTER → 2025-01-21 08:00 | Outpatient (BNVA) | payer MEDICARE, SELFPAY | PROVIDERS: PCP Physician Assistant; Visit Provider Podiatrist Foot & Ankle Surgery | DX: E11.49 Type 2 diabetes mellitus with other diabetic neurological complication (principal); L60.3 Nail dystrophy; L84 Corns and callosities; I73.9 Peripheral vascular disease, unspecified; G63 Polyneuropathy in diseases classified elsewhere | CPT/HCPCS: 11721 ==

== ENCOUNTER 2025-04-05 08:32 | Emergency (ER) | payer MEDICARE, SELFPAY ==
--- NOTE | 2025-04-05 08:17 | ECG_ITS ---
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 Measurements Intervals [place] Rate: 94 P: 0 DC: 0 QRS: 30 QRSD: 110 T: 33 QT: 345 QTc: 432 Interpretive Statements ATRIAL FIBRILLATION MODERATE INTRAVENTRICULAR CONDUCTION DELAY [105+ ms QRS DURATION, 80+ ms Q/S IN V1/V2, NO Q AND 60+ ms R IN I/aVL/V5/V6] NONSPECIFIC ST & T-WAVE ABNORMALITY Compared to ECG 09/29/2024 13:15:32 Intraventricular conduction delay now present T-wave abnormality now present ST (T wave) deviation no longer present Electronically Signed On 04-05-2025 10:31:33 [employer] by Hailey Holley M.D. [email or web address]
--- NOTE | 2025-04-05 08:17 | XRR_ITS ---
PROCEDURE INFORMATION: Exam: XR Chest Exam date and time: 04/05/2025 8:22 AM Age: 75 years old Clinical indication: Pain; Angina pectoris; Additional info: Chest pain TECHNIQUE: Imaging protocol: Radiologic exam of the chest. Views: 1 view. COMPARISON: CR XR chest 1V portable [id number] 09/29/2024 8:43 AM FINDINGS: Lungs: Unremarkable. No consolidation. Pleural spaces: Unremarkable. No pleural effusion. No pneumothorax. Heart/Mediastinum: Unremarkable. No cardiomegaly. Bones/joints: Unremarkable. XR/XR chest 1V portable [id number] IMPRESSION: No acute findings.
--- NOTE | 2025-04-05 08:21 | W.ED.CHESTPA ---
HPI - Chest Pain General: Chief Complaint: Chest Pain Stated Complaint: chest pain History of Present Illness: 75-year-old man with a history of morbid obesity, atrial fibrillation, chronic anticoagulation on Eliquis, hyperlipidemia, Coronary artery disease status post stents around 30 years ago, hypertension, anxiety and depression who presents emergency room by ambulance from clinic with chest pain. He says he has been having chest pain since about 1 this morning. He says he regularly has it but it usually only last briefly. He says it goes between being a dull ache to some sharp pains. No cough. No fever. No altered mental status. No diaphoresis. He complains of chest pain but however on exam he is quite tender in his epigastric region. He also tells me that he has had some nausea that gets better with belching. No vomiting Related Data Home Medications ?Medication ?Instructions ?Recorded ?Confirmed atorvastatin 20 mg tablet 20 mg PO QAM 10/11/19 04/05/25 budesonide-formoterol HFA 160 2 puff inhalation BID 09/29/24 04/05/25 mcg-4.5 mcg/actuation aerosol inhaler cetirizine 10 mg tablet 10 mg PO DAILY 09/29/24 04/05/25 potassium chloride 20 mEq 20 meq PO DAILY 09/29/24 04/05/25 tablet,extended release furosemide 20 mg tablet 20 mg PO DAILY 04/05/25 04/05/25 ipratropium 0.5 mg-albuterol 3 mg 3 ml inhalation QID PRN Shortness 04/05/25 04/05/25 (2.5 mg base)/3 mL nebulization Of Breath soln metoprolol succinate 50 mg 50 mg PO DAILY 04/05/25 04/05/25 tablet,extended release 24 hr nystatin 100,000 unit/mL oral 5 ml PO QID 04/05/25 04/05/25 suspension oxybutynin chloride 5 mg tablet 5 mg PO DAILY 04/05/25 04/05/25 Previous Rx's ?Medication ?Instructions ?Recorded Diabetic shoes #1 ea 03/22/23 apixaban 5 mg tablet (Eliquis) 5 mg PO BID #90 tabs 04/24/23 diltiazem HCl 240 mg 240 mg PO DAILY #30 tabs 09/16/23 tablet,extended release 24 hr (Cardizem LA) diabetic shoes with 3 custom #1 ea 09/15/24 inserts spironolactone 25 mg tablet 25 mg PO DAILY #90 tabs 02/01/25 famotidine 40 mg tablet 40 mg PO DAILY #14 tabs 04/05/25 Allergies Allergy/AdvReac Type Severity Reaction Status Date / Time No Known Allergies Allergy Verified 04/05/25 08:30 Review of Systems Narrative: Constitutional symptoms: Negative except as documented in HPI. Skin symptoms: Negative except as documented in HPI. Eye symptoms: Negative except as documented in HPI. ENMT symptoms: Negative except as documented in HPI. Respiratory symptoms: Negative except as documented in HPI. Cardiovascular symptoms: Negative except as documented in HPI. Gastrointestinal symptoms: Negative except as documented in HPI. Genitourinary symptoms: Negative except as documented in HPI. Musculoskeletal symptoms: Negative except as documented in HPI. Neurologic symptoms: Negative except as documented in HPI. Psychiatric symptoms: Negative except as documented in HPI. Endocrine symptoms: Negative except as documented in HPI. PFS ED PFSH: Medical History (Updated 04/05/25 @ 10:54 by Neli Miner MD) Atrial fibrillation Ischemic cardiomyopathy EF 45% Obstructive sleep apnea Unable to tolerate CPAP CAD (coronary atherosclerotic disease) GERD (gastroesophageal reflux disease) Type 2 diabetes mellitus without complication, without long-term current use of insulin Depression Anxiety Hypertension COPD (chronic obstructive pulmonary disease) Surgical History Hx of tonsillectomy H/O foot surgery History of carpal tunnel surgery H/O cardiac catheterization Stent 1998 Family History Other Diabetes Denies family history of Liver disease CAD (coronary artery disease) Aneurysm Autoimmune disease Clotting disorder Dementia Heart disease Hyperlipidemia Psychiatric illness Chronic kidney disease (CKD) Bleeding disorder Lung disease Cancer Hypertension Thyroid disease Stroke Social History Smoking and tobacco/nicotine status: current every day tobacco/nicotine user cigarettes Packs smoked per day: 1 Years cigarettes smoked: 50 Alcohol intake: former Substance/Drug Use: never Household members: spouse and family Housing: House Current occupational status: retired Physical Exam Narrative: EXAM NARRATIVE: General: Alert, no acute distress. Skin: Warm, dry. Head: Normocephalic, atraumatic. Neck: Supple, trachea midline. Eye: Extraocular movements are intact. Ears, nose, mouth and throat: mucosa moist. Cardiovascular: Regular, Normal peripheral perfusion. Respiratory: Lungs are clear to auscultation, respirations are non-labored, breath sounds are equal, Symmetrical chest wall expansion. Gastrointestinal: Soft, Nontender, Non distended Musculoskeletal: Normal ROM, no deformity. Neurological: Alert and oriented, No focal neurological deficit observed. Psychiatric: Cooperative, appropriate mood & affect. Course Vital Signs: Vital signs: Vital Signs Temperature 97.8 F 04/05/25 08:25 Pulse Rate 91 04/05/25 09:01 Respiratory Rate 21 H 04/05/25 09:01 Blood Pressure 139/82 04/05/25 09:01 Pulse Oximetry 94 04/05/25 09:01 Oxygen Delivery Me thod Room Air 04/05/25 08:47 MDM - Chest Pain Medical Decision Making Medical decision making Patient's reason for coming to the emergency room: Chest pain which actually appears to be more epigastric pain Social determinants: Patient is retired I reviewed the patient's medical record. 75-year-old man with a history of morbid obesity, atrial fibrillation, chronic anticoagulation on Eliquis, hyperlipidemia, Coronary artery disease status post stents around 30 years ago, hypertension, anxiety and depression I reviewed the patient's current home meds Patient is on Eliquis Alternate historians: None Differential diagnosis for patient with chest pain includes but is not limited to and based on the above HPI, review of systems and physical exam: Pneumonia. unstable angina. angina. Acute coronary syndrome / [place]. Pulmonary embolism. Costochondritis / musculoskeletal. Pleurisy. Pericarditis. Esophageal spasm. Pancreatitis. Cholecystitis. Orders placed to evaluate differential diagnosis based on the above differential, HPI and physical exam EKG: Time 8:22 AM. Rate 94. Atrial fibrillation with controlled rate, No ST-T changes, no ectopy, This was reviewed and interpreted by myself the ER physician at 8:25 AM Chest x-ray: No acute process. No infiltrate. No pneumothorax. This was reviewed and interpreted by myself the emergency room physician. I also reviewed the radiology report. Lab Review: Laboratory results were reviewed and interpreted by myself the emergency room physician. Leukocytosis with a white count of 17,000. No anemia. Initial troponin is elevated over his baseline at 70 but repeat is 63. A change of 10 which is not significant. Also it is going down. This is probably after fluids Assessment of risk: Level of risk: Moderate risk patient. Multiple comorbidities Hospitalization considerations: I did offer admission for the dehydration and slightly high potassium but patient does take a supplement so stopping that and some fluid should help. Also his troponin is up secondary to renal function. His baseline is always slightly elevated and repeat is unchanged. Clinical decision making: Patient has a heart score of 6 but he does not actually have chest pain. He has epigastric abdominal pain. He has multiple risk factors and his troponin is elevated at baseline. Is unchanged on repeat. Reexamination: Patient remained stable. No increased work of breathing. No altered mental status. No focal motor deficits. Patient says pain is much improved after Pepcid and morphine. Assessment and plan: Epigastric pain Dyspepsia Acute on chronic renal insufficiency Dehydration Hyperkalemia ? Pepcid, morphine, Zofran. Patient improved. Holding home potassium supplement. - Discharged home - Discussed plan with patient. Answered any questions. - Evaluation and treatment of this problem were appropriate in the emergency setting. Lab Data 04/05/25 08:43 04/05/25 08:43 Radiology Impressions Chest X-Ray 04/05/25 08:17 IMPRESSION: No acute findings. Abdomen/Pelvis CT 04/05/25 09:26 IMPRESSION: 1. No acute abdominal or pelvic abnormality to explain symptoms. 2. Cholelithiasis without evidence of cholecystitis. 3. Mild splenomegaly. Laboratory Results WBC 17.04 10^3/uL (3.29-11.43) H 04/05/25 08:43 RBC 5.23 10^6/uL (3.85-5.65) 04/05/25 08:43 Hgb 14.70 g/dL (11.27-16.99) 04/05/25 08:43 Hct 46.4 % (37-53) 04/05/25 08:43 MCV 88.7 fl (82-101) 04/05/25 08:43 MCH 28.1 pg (27-33) 04/05/25 08:43 MCHC 31.7 g/dL (30-55) 04/05/25 08:43 RDW 14.2 % (12.1-15.1) 04/05/25 08:43 Plt Count 303 10^3/cmm (157-399) 04/05/25 08:43 MPV 9.6 fL (7.4-10.4) 04/05/25 08:43 Neut % (Auto) 72.2 % 04/05/25 08:43 Lymph % (Auto) 18.9 % 04/05/25 08:43 [place] % (Auto) 6.4 % 04/05/25 08:43 Eos % (Auto) 1.0 % 04/05/25 08:43 Baso % (Auto) 0.6 % 04/05/25 08:43 Neut # (Auto) 12.30 10^3/uL (1.8-7.7) H 04/05/25 08:43 Lymph # (Auto) 3.2 10^3/uL (0.8-4.8) 04/05/25 08:43 [place] # (Auto) 1.1 10^3/uL (0.2-0.9) H 04/05/25 08:43 Eos # (Auto) 0.2 10^3/uL (0.0-0.8) 04/05/25 08:43 Baso # (Auto) 0.1 10^3/uL (0.0-0.1) 04/05/25 08:43 Nucleated RBC % (auto) 0 % 04/05/25 08:43 Nucleated RBCs # 0.0 /100WBC 04/05/25 08:43 PT 16.10 SECONDS (12.1-14.9) H 04/05/25 08:43 INR 1.21 (0.8-1.2) H 04/05/25 08:43 APTT 32.9 SECONDS (23.9-36.7) 04/05/25 08:43 Sodium 133 mmol/L (136-145) L 04/05/25 08:43 Potassium 6.2 mmol/L (3.5-5.1) H 04/05/25 08:43 Chloride 96 mmol/L (98-107) L 04/05/25 08:43 Carbon Dioxide 26 mmol/L (22-29) 04/05/25 08:43 Anion Gap 17.2 (5-19) 04/05/25 08:43 BUN 37 mg/dL (8-23) H 04/05/25 08:43 Creatinine 1.3 mg/dL (0.7-1.2) H 04/05/25 08:43 GFR Calculation Not Reportable 04/05/25 08:43 Glucose 174 mg/dL (65-115) H 04/05/25 08:43 Calculated Osmolality 289 mOsm/kg (285-295) 04/05/25 08:43 Calcium 10.1 mg/dL (8.5-10.5) 04/05/25 08:43 Total Bilirubin 1.8 mg/dL (0.15-1.2) H 04/05/25 08:43 AST 24 U/L (0-40) 04/05/25 08:43 ALT 24 U/L (0-41) 04/05/25 08:43 Alkaline Phosphatase 130 U/L (40-130) 04/05/25 08:43 Troponin T Baseline 73 ng/L (0-15) H 04/05/25 08:43 Troponin T 120 Minute 62.92 ng/L (0-15) H 04/05/25 10:16 Delta Troponin T -10.08 ABS# (0-10) L 04/05/25 10:16 NT-Pro-B Natriuret Pep 2271 pg/mL (0-125) H 04/05/25 08:43 Total Protein 7.9 g/dL (6.6-8.7) 04/05/25 08:43 Albumin 4.0 g/dL (3.5-5.2) 04/05/25 08:43 Globulin 3.9 g/dL (1.3-4.6) 04/05/25 08:43 Lipase 19 U/L (13-60) 04/05/25 08:43 All radiology interpretation(s) finalized by discharge Clincial Decision Support The following clinical decision support tools were used to aid in care of the patient HEART Score -> History: Slightly Suspicous, EKG: Normal, Age: 65 or more yrs, Risk Factors: >/=3 Risk Factors, Troponin: Baseline Trop >45 ng/L. Resulting HEART Score: 6. Discharge Plan Discharge Patient Disposition: Home Clinical Impression: Dyspepsia, Acute on chronic renal insufficiency, Dehydration, Hyperkalemia Condition: Stable Prescriptions: New famotidine 40 mg tablet 40 mg PO DAILY Qty: 14 0RF No Action Eliquis 5 mg tablet 5 mg PO BID Qty: 90 2RF (DME) Diabetic shoes See Rx Instructions .ROUTE .MEDSUPPLY Qty: 1 0RF Rx Instructions: With 3 pairs of inserts made by the [employer] (DME) diabetic shoes with 3 custom inserts See Rx Instructions .Route .MEDSUPPLY Qty: 1 0RF Rx Instructions: As directed to national diabetic [facility] spironolactone 25 mg tablet 25 mg PO DAILY Qty: 90 0RF atorvastatin 20 mg tablet 20 mg PO QAM diltiazem HCl [Cardizem LA] 240 mg tablet extended release 24 hr 240 mg PO DAILY Qty: 30 0RF cetirizine 10 mg tablet 10 mg PO DAILY budesonide-formoterol 160-4.5 mcg/actuation HFA aerosol inhaler 2 puff INHALATION BID potassium chloride 20 mEq tablet extended release 20 meq PO DAILY nystatin 100,000 unit/mL suspension 5 ml PO QID MDD x10d ipratropium-albuterol 0.5 mg-3 mg(2.5 mg base)/3 mL solution for nebulization 3 ml INHALATION QID PRN (Reason: Shortness Of Breath) metoprolol succinate 50 mg tablet extended release 24 hr 50 mg PO DAILY furosemide 20 mg tablet 20 mg PO DAILY oxybutynin chloride 5 mg tablet 5 mg PO DAILY Discharge Orders: Discharge ED (Routine); Ordered 04/05/25 Ordered By: Neli Miner Referrals: Kacey Chew PA [Primary Care Provider, [facility]] Discharge Diet: Usual diet Discharge Activity: Increase activity as tolerated Patient Instructions: GERD (Gastroesophageal Reflux Disease) (ED), Indigestion (ED), Opioid Safety, Pain Management, Patient Portal & Jessica Instructions Activity Restrictions/Additional Instructions: Please hold your potassium supplement until instructed to restart by your primary provider. Your potassium was a bit high today. Thank you for choosing [facility] for your healthcare needs today. You have been screened and evaluated and felt safe for discharge. Health conditions do change or evolve sometimes and as such it is important that you follow up with your Primary Doctor to be re checked, 3-5 days is a general good time frame for follow up. You are always welcome to return to the ED for re assessment if your symptoms are worsening or you have new concerns Print Language: Sami Coding Level of Care Code ED Prop Cutter for Chg Fwd Heart Score HEART Score Components History: Slightly Suspicous EKG: Normal Age: 65 or more yrs Risk Factors: >/=3 Risk Factors Troponin: Baseline Trop >45 ng/L HEART Score RESULT HEART Score: 6
[2025-04-05 08:25] VITALS: BP 118/79; PULSE 102; RESP 22; TEMP 36.6; O2SAT 96; BMI 32.3
[2025-04-05 08:47] VITALS: BP 106/78; PULSE 99; RESP 18; O2SAT 96
[2025-04-05 08:47] LABS: Hematocrit 46.4 % (37-53); Hemoglobin 14.70 g/dL (11.27-16.99); Mean Corpuscular HGB Conc 31.7 g/dL (30-55); Mean Corpuscular Hemoglobin 28.1 pg (27-33); Mean Corpuscular Volume 88.7 fl (82-101); Nucleated Red Blood Cells % 0 %; Platelet Count 303 10^3/cmm (157-399); Red Blood Count 5.23 10^6/uL (3.85-5.65); White Blood Count 17.04 10^3/uL (3.29-11.43)
--- OUTSIDE RECORDS SUMMARY | 2025-04-05 08:49 | XMS_ITS | Clinical Summary ---
Author Organization [employer] Address [address] Attn: Epic Prelude ADT KRZYSZTOF RODRIGUEZ [address] Care Team Providers Care Army Ranger Name Role Phone Unavailable Primary Care Provider Unavailabl e Medications tamsulosin (FLOMAX) 0.4 mg capsuleIndicatio ns:Urinary incontinence, unspecified type Take 1 Capsule (0.4 mg) by mouth daily. 30 Capsule 06/29/2024 Active mirabegron (MYRBETRIQ) 25 mg Extended Release 24 hour tabletIndication s:Urinary incontinence, unspecified type Take 1 Tablet (25 mg) by mouth daily. 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
--- OUTSIDE RECORDS SUMMARY | 2025-04-05 08:49 | XMS_ITS | Clinical Summary ---
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
--- OUTSIDE RECORDS SUMMARY | 2025-04-05 08:49 | XMS_ITS | Encounter Summary ---
Author Organization [facility] Address [address] [place] [address] Care Team Providers Care Caving Guide Name Role Phone Unavailable Primary Care Provider Unavailabl e Encounter Details Date Type Department Care Team (Latest Contact Info) Description 11/23/[address] 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
[2025-04-05] MEDS: ondansetron 2 mg/ML SDV 2 mL 4 MG IVP (08:50)
[2025-04-05 08:51] VITALS: RESP 18
[2025-04-05] MEDS: morphine 4 mg/mL SDV 1 mL 2 MG IVP (08:51)
[2025-04-05 09:01] VITALS: BP 139/82; PULSE 91; RESP 21; O2SAT 94
[2025-04-05 09:03] LABS: INR 1.21 (0.8-1.2); Prothrombin Time 16.10 SECONDS (12.1-14.9)
[2025-04-05 09:04] LABS: Partial Thromboplastin Time 32.9 SECONDS (23.9-36.7)
[2025-04-05 09:08] LABS: Troponin(5th) Baseline 73 ng/L (0-15)
[2025-04-05 09:22] LABS: Alanine Aminotransferase 24 U/L (0-41); Albumin Level 4.0 g/dL (3.5-5.2); Alkaline Phosphatase 130 U/L (40-130); Aspartate Amino Transferase 24 U/L (0-40); Blood Urea Nitrogen 37 mg/dL (8-23); Calcium 10.1 mg/dL (8.5-10.5); Carbon Dioxide 26 mmol/L (22-29); Globulin 3.9 g/dL (1.3-4.6); Glucose 174 mg/dL (65-115); Lipase 19 U/L (13-60); Total Protein 7.9 g/dL (6.6-8.7)
[2025-04-05 09:23] LABS: Osmolality Calculated 289 mOsm/kg (285-295); Potassium 6.2 mmol/L (3.5-5.1); Sodium 133 mmol/L (136-145)
[2025-04-05 09:24] LABS: Anion Gap 17.2 (5-19); Chloride 96 mmol/L (98-107)
--- NOTE | 2025-04-05 09:26 | CTR_ITS ---
PROCEDURE INFORMATION: Exam: CT Abdomen And Pelvis With Contrast Exam date and time: 04/05/2025 9:36 AM Age: 75 years old Clinical indication: Pain; Other: Epigastric; Additional info: Epigastric abdominal pain TECHNIQUE: Imaging protocol: Computed tomography of the abdomen and pelvis with contrast. Radiation optimization: All CT scans at this facility use at least one of these dose optimization techniques: automated exposure control; mA and/or kV adjustment per patient size (includes targeted exams where dose is matched to clinical indication); or iterative reconstruction. Contrast material: [id number]; Contrast volume: 100 ml; Contrast route: INTRAVENOUS (IV); COMPARISON: CT abdomen pelvis w con* [id number] 04/04/2024 9:50 PM RADIATION DOSE METRICS: Total DLP (mGy-cm): 558.3 FINDINGS: Coronary arteries: There are moderate coronary artery calcifications. Liver: No suspicious focal liver lesion. No suspicious focal liver lesion. Gallbladder and biliary ducts: Cholelithiasis without cholecystitis. Pancreas: Normal. No pancreatic ductal dilation. Spleen: Spleen is mildly enlarged at 14 cm. Incidental splenic granulomata are noted. Adrenal glands: Normal. No mass. Kidneys and ureters: No suspicious renal lesion. No hydronephrosis. Stomach and bowel: Unremarkable. No bowel obstruction. No mucosal thickening. Appendix: No evidence of appendicitis. Intraperitoneal space: Unremarkable. No free air. No significant fluid collection. Vasculature: Severe atherosclerotic disease is evident. Lymph nodes: Unremarkable. No enlarged lymph nodes. Urinary bladder: Unremarkable bladder as visualized. Reproductive: Unremarkable as visualized. Bones/joints: There are moderate degenerative changes throughout the visible areas of the spine. Soft tissues: A small fat containing periumbilical hernia is present without inflammation. CT/CT abdomen pelvis w con* [id number] IMPRESSION: 1. No acute abdominal or pelvic abnormality to explain symptoms. 2. Cholelithiasis without evidence of cholecystitis. 3. Mild splenomegaly.
[2025-04-05 09:27] LABS: NT Pro B Type Natriuretic Pept 2271 pg/mL (0-125)
[2025-04-05] MEDS: iohexol 350 mg/mL 500 mL Btl (per mL) IV (09:39)
[2025-04-05 10:39] LABS: Troponin 5 2HR 62.92 ng/L (0-15)
[2025-04-05 10:40] LABS: Troponin 5 2HR Delta -10.08 ABS# (0-10)
--- NOTE | 2025-04-05 10:44 | PC.PHAR ---
AMANDA Cueva filled the Nystatin due to [facility] was out of stock. Pt states he still takes Atorvastatin 20mg qam 09/24/24 90ds and Eliquis 5mg bid 07/05/24 90ds but [facility] verified last fill dates and pt should be out.
[2025-04-05 11:15] VITALS: BP 105/70; PULSE 116; O2SAT 91
== END 2025-04-05 11:17 | disposition home or self-care (01) ==
PROVIDERS: Emergency Provider Emergency Medicine; PCP Physician Assistant
DX: R10.13 Epigastric pain (principal); N18.9 Chronic kidney disease, unspecified; N28.9 Disorder of kidney and ureter, unspecified; E86.0 Dehydration; E87.5 Hyperkalemia; I48.91 Unspecified atrial fibrillation; E66.01 Morbid (severe) obesity due to excess calories; Z68.32 Body mass index [BMI] 32.0-32.9, adult; I25.10 Atherosclerotic heart disease of native coronary artery without angina pectoris; I10 Essential (primary) hypertension; Z79.01 Long term (current) use of anticoagulants; F17.210 Nicotine dependence, cigarettes, uncomplicated
CPT/HCPCS: 36415; 71045; 74177; 80053; 83690; 83880; 84484; 85025; 85610; 85730; 93005; 96361; 96374; 96375; 99285; J2270; J2405; J3490; J7030